=== PATIENT | male | born 1980 | race Two or more races ===

== ENCOUNTER → 2020-07-06 09:26 | Outpatient (BNVA) | payer MEDICARE, MEDICAID, SELFPAY | PROVIDERS: PCP Internal Medicine; Referring Provider Internal Medicine; Visit Provider Surgery | DX: R10.32 Left lower quadrant pain (principal) | CPT/HCPCS: 99203 ==

== ENCOUNTER 2020-07-19 07:54 | Outpatient (REF) | payer MEDICARE, MEDICAID, SELFPAY ==
--- NOTE | 2020-07-19 07:58 | CT_ITS ---
EXAMINATION: CT PELVIS WITHOUT CONTRAST CLINICAL INFORMATION: Left lower quadrant pain, left groin and testicular pain. COMPARISON: None. TECHNIQUE: Helical scanning was performed with submillimeter collimation through the pelvis. Sagittal and coronal multiplanar 2-D reconstructions were obtained. This CT examination was performed using dose optimization techniques as appropriate, variously including the following: *Automated exposure control *Adjustment of mA and/or kV according to patient size (this includes techniques or standardized protocols for targeted exams where dose is matched to indication/reason for exam; i.e. extremities or head) *Use of iterative reconstruction technique DLP: 680 mGy-cm. FINDINGS: PELVIS: There is scattered stool and gas seen throughout the colon without any significant distention. The small bowel loops are normal caliber. The prostate is normal size with punctate central gland calcification. Incidental finding of left inguinal hernia containing fat is noted. No abnormal pelvic or inguinal lymph nodes seen. OSSEOUS STRUCTURES: There is no visible lytic or sclerotic process. There is a small bone island left femoral head and proximal left femur. IMPRESSION: Small left inguinal hernia containing fat.
== END 2020-07-19 07:55 | disposition home or self-care (01) ==
LOC: HO.CT 07:54
PROVIDERS: PCP Internal Medicine; Visit Provider Surgery
DX: R10.32 Left lower quadrant pain (principal)
CPT/HCPCS: 72192

== ENCOUNTER → 2020-07-27 08:24 | Outpatient (BNVA) | payer MEDICARE, MEDICAID, SELFPAY | PROVIDERS: PCP Internal Medicine; Visit Provider Surgery | DX: K40.90 Unilateral inguinal hernia, without obstruction or gangrene, not specified as recurrent (principal); R10.32 Left lower quadrant pain | CPT/HCPCS: 99213 ==

== ENCOUNTER 2020-08-04 07:16 | Day surgery (SDC) | payer MEDICARE, MEDICAID, SELFPAY ==
--- NOTE | 2020-08-02 15:36 | P.CONAN_ITS ---
Documented by User: Argenis Damon 08/02/20 15:37 HPI - Anesthesia Eval Consult details Narrative: 40yo M for Open Hernia Repair Inguinal PMFSH Past Medical History Medical History Asthma Depression with anxiety Fibromyalgia GERD (gastroesophageal reflux disease) Hyperlipidemia Social History Social History Alcohol intake: current Alcohol intake frequency: holidays/special occasions only Smoking Status: Never smoker Second Hand Smoke Exposure: No Use of substances other than those prescribed or required for medical reasons: No Advance Directives: Yes Advance Directives Information Provided: No Advance Directives on File: Yes Advance Directives Date on File: 07/19/20 Meds Allergies Allergy/AdvReac Type Severity Reaction Status Date / Time seafood Allergy Anaphylaxis Verified 07/27/20 08:50 Home Medications Medication Instructions Recorded Confirmed Type atorvastatin 80 mg tablet 80 mg PO DAILY 07/06/20 07/06/20 History baclofen 10 mg tablet 10 mg PO tab 07/06/20 07/06/20 History carbidopa 25 mg-levodopa 100 mg 1 tab PO DAILY tab 07/06/20 07/06/20 History tablet citalopram 20 mg tablet 20 mg PO DAILY 07/06/20 07/06/20 History clonazepam 0.5 mg tablet 0.5 mg PO DAILY PRN 07/06/20 07/06/20 History clonazepam 1 mg tablet 1 mg PO BEDTIME PRN 07/06/20 07/06/20 History dicyclomine 10 mg capsule 10 mg PO cap 07/06/20 07/06/20 History docusate sodium 100 mg capsule 100 mg PO BID PRN 07/06/20 07/06/20 History gabapentin 800 mg tablet 800 mg PO BID 07/06/20 07/06/20 History pantoprazole 40 mg tablet,delayed mg PO 07/06/20 07/06/20 History release sennosides 8.6 mg tablet [id number]? mg PO BEDTIME PRN 07/06/20 07/06/20 History tramadol 50 mg tablet 50 mg PO Q6H PRN 07/06/20 07/06/20 History trazodone 50 mg tablet mg PO 07/06/20 07/06/20 History Exam Exam Date and Time: August 02, 2020 1536 Pertinent Lab Results Pertinent Lab Results: Laboratory Tests 06/22/20 08:17 Sodium 143 Potassium 4.2 Chloride 107 BUN 10 Creatinine 0.98 Assessment and Plan Assessment Anesthesia Assessment: Chart Reviewed Documented by User: Opal Carrion 08/04/20 09:12 [facility] Past Medical History Medical History Asthma Depression with anxiety Fibromyalgia GERD (gastroesophageal reflux disease) Hyperlipidemia Social History Social History Alcohol intake: current Alcohol intake frequency: holidays/special occasions only Smoking Status: Never smoker Second Hand Smoke Exposure: No Use of substances other than those prescribed or required for medical reasons: No Advance Directives: Yes Advance Directives Information Provided: No Advance Directives on File: Yes Advance Directives Date on File: 07/19/20 Meds Allergies Allergy/AdvReac Type Severity Reaction Status Date / Time seafood Allergy Anaphylaxis Verified 07/27/20 08:50 Home Medications Medication Instructions Recorded Confirmed Type atorvastatin 80 mg tablet 80 mg PO DAILY 07/06/20 07/06/20 History baclofen 10 mg tablet 10 mg PO tab 07/06/20 07/06/20 History carbidopa 25 mg-levodopa 100 mg 1 tab PO DAILY tab 07/06/20 07/06/20 History tablet citalopram 20 mg tablet 20 mg PO DAILY 07/06/20 07/06/20 History clonazepam 0.5 mg tablet 0.5 mg PO DAILY PRN 07/06/20 07/06/20 History clonazepam 1 mg tablet 1 mg PO BEDTIME PRN 07/06/20 07/06/20 History dicyclomine 10 mg capsule 10 mg PO cap 07/06/20 07/06/20 History docusate sodium 100 mg capsule 100 mg PO BID PRN 07/06/20 07/06/20 History gabapentin 800 mg tablet 800 mg PO BID 07/06/20 07/06/20 History pantoprazole 40 mg tablet,delayed mg PO 07/06/20 07/06/20 History release sennosides 8.6 mg tablet [id number]? mg PO BEDTIME PRN 07/06/20 07/06/20 History tramadol 50 mg tablet 50 mg PO Q6H PRN 07/06/20 07/06/20 History trazodone 50 mg tablet mg PO 07/06/20 07/06/20 History Exam Airway Mallampati Class: II TM Dist: >3cm Neck ROM: Full Heart: RRR Lungs: CTA Bl Assessment and Plan Assessment Anesthesia Assessment: Anesthesia Plan Discussed and Chart Reviewed Final Anesthetic Review NPO: Yes ASA Class: II Final Preanesthetic Review: Meds/Allgs Chart Reviewed and Consent Obtained/Reviewed Patient Risk: Intermediate Procedure Risk: Intermediate Anesthetic Plan Anesthetic Plan: GA Disposition: Standard PACU
[2020-08-03 11:51] VITALS: BMI 34.3
[2020-08-04] VITALS (7 sets, daily range): BP systolic 115–137; BP diastolic 74–87; PULSE 65–84; RESP 16–18; TEMP 36–36.4; O2SAT 96–99
[2020-08-04] MEDS: ceFAZolin Sodium/Dextrose,Iso 2 GM/50 ML PIGGYBACK IV (08:04)
[2020-08-04] MEDS: Lactated Ringers 1,000 ML 100 ML IVCONT (08:04)
--- NOTE | 2020-08-04 09:04 | MHC.SHP ---
Pre-Procedural Eval Section A The patient is an INPATIENT: No Changes since office visit: Yes Patient answered all questions; No Cold of Flu in the past 2 weeks, No New Medical Problems and No Changes in Medication The History & Physical has been completed within 30 days and I have reviewed it.: Yes Section B Chief Complaint: Left Inguinal Hernia, Left Inguinal Pain Allergies: Allergies Allergy/AdvReac Type Severity Reaction Status Date / Time seafood Allergy Anaphylaxis Verified 07/27/20 08:50 Plan Patient has been examined and remains a candidate for the planned procedure
--- NOTE | 2020-08-04 10:45 | W.PM.OPN ---
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 Review of the images suggested that findings might be related to and asymmetrically yeah enlarged and fatty lipoma Procedure: Left inguinal exploration and excision of lipoma of the cord Anesthesia: General laryngeal mask Chemical Dependency Professional: None Estimated blood loss: Less than 10 cc Specimen: Lipoma of the cord Implants: None Urine output: None Immediate complications: None Findings: A left inguinal hernia was not identified, but there was a large lipoma of the cord that extended down to the superior aspect of the testis. Indications: This is a 40-year-old gentleman with recent complaints of left testicular pain and fullness in the left scrotum. Examination was not convincing for the presence of left inguinal hernia, but the presence of a fat containing inguinal hernia was reported. Review of the images suggest the possibility that findings represented a large lipoma of the cord. Procedure in detail: With the patient in the supine position following induction of adequate general anesthesia, the lower abdominal wall and inguinal areas were prepped with ChloraPrep and were draped sterilely. Time-out procedure was performed. The incision line was marked and skin and subcutaneous tissues were infiltrated with local anesthetic. Further anesthetic infiltration was carried out during the procedure as the incision was deepened. An approximately 7 cm incision was made paralleling the inguinal crease on the left beginning over the area of the external ring and extending superiorly and laterally. The incision was deepened to the level of the external oblique fascia using the letrozole surgical pencil and bleeding was controlled using the electrosurgical pencil. A aubrey Hatfielda retractor was then positioned. External oblique fascia was split in line with its fibers through the external ring. Did soft tissues were dissected free from the deep surface of the incised external oblique fascia and the rahcael Hatfielda retractor was repositioned and to wet retract the cut edges of the external oblique fascia. The cord structures were then encircled at the level of the pubic tubercle and a Jumping Branch drain was placed around them. Dissection was initiated on the anteromedial aspect of the cord. The cord structures were identified and avoided. There was no evidence of an indirect hernia. No direct hernia defect was present. Dissection was continued along the lateral aspect of the cord. A large lipoma of the cord was identified day extending down into the he a left hemiscrotum to the superior aspect of the testis. This was gently retracted and dissected free using a combination of Metzenbaum dissection and electro with surgical dissection. The lipoma was freed up to the level of the internal ring. It was then that have crossclamped using get 3 hemostats and was excised. Cut edges were ligated with 2 0 Polysorb ties. After ensuring hemostasis, cut edges were allowed to retract through the internal ring. Attention was then turned back to the yet cord and careful inspection was again carried out. There is no evidence of an indirect hernia. The operative site was copiously irrigated with saline solution. The floor of the canal was inspected. It was intact. There was no evidence of direct hernia. The wound was then closed using a running suture of 2 0 Polysorb for the external oblique. Subcutaneous tissues were irrigated with saline solution and inspected for bleeding. None was seen. Subcutaneous tissues were closed with interrupted sutures of 3 0 Polysorb and skin was closed with a running subcuticular suture of 4 0 Polysorb. Steri-Strips and dry sterile dressings were applied. Sponge and instrument counts were correct. He tolerated the procedure well and was transported to the recovery room in stable condition. There were no immediate complications.
[2020-08-04] MEDS: Acetaminophen 325 MG TABLET 650 MG PO (10:51)
[2020-08-04] MEDS: oxyCODONE HCl Immed Release 5 MG TABLET PO (10:52)
== END 2020-08-04 12:25 | disposition home or self-care (01) ==
PROVIDERS: PCP Internal Medicine; Visit Provider Surgery
DX: D17.6 Benign lipomatous neoplasm of spermatic cord (principal); K21.9 Gastro-esophageal reflux disease without esophagitis; J45.909 Unspecified asthma, uncomplicated; F32.9 Major depressive disorder, single episode, unspecified; Z79.899 Other long term (current) drug therapy
CPT/HCPCS: 55520; 88304; J0690; J1100; J1885; J2250; J2405; J3010

== ENCOUNTER → 2020-08-12 10:58 | Outpatient (BNVA) | payer MEDICARE, MEDICAID, SELFPAY | PROVIDERS: PCP Internal Medicine; Visit Provider Surgery | DX: Z48.815 Encounter for surgical aftercare following surgery on the digestive system (principal) | CPT/HCPCS: 99212 ==

== ENCOUNTER → 2020-09-01 15:23 | Outpatient (BNVA) | payer MEDICARE, MEDICAID, SELFPAY | PROVIDERS: PCP Internal Medicine; Visit Provider Surgery | DX: N50.812 Left testicular pain (principal); D17.6 Benign lipomatous neoplasm of spermatic cord | CPT/HCPCS: 99212 ==

== ENCOUNTER → 2020-09-15 11:00 | Outpatient (BNVA) | payer MEDICARE, MEDICAID, SELFPAY | PROVIDERS: PCP Internal Medicine; Referring Provider Internal Medicine; Visit Provider Urology | DX: N50.89 Other specified disorders of the male genital organs (principal) | CPT/HCPCS: 99202 ==

== ENCOUNTER 2020-09-20 09:49 | Day surgery (SDC) | payer MEDICARE, MEDICAID, SELFPAY ==
--- NOTE | 2020-09-17 12:59 | P.CONAN_ITS ---
Documented by User: Argenis Damon 09/17/20 13:00 HPI - Anesthesia Eval Consult details Narrative: 40yo M for Left epididymal Excision Cyst PMFSH Past Medical History Medical History Annual physical exam Asthma Depression with anxiety Fibromyalgia GERD (gastroesophageal reflux disease) Hyperlipidemia Surgical History Surgical History History of left inguinal hernia repair Social History Social History Alcohol intake: current Alcohol intake frequency: holidays/special occasions only Smoking Status: Never smoker Second Hand Smoke Exposure: No Use of substances other than those prescribed or required for medical reasons: No Advance Directives: Yes Advance Directives on File: Yes Advance Directives Date on File: 07/19/20 Recently lost weight without trying: No Meds Allergies Allergy/AdvReac Type Severity Reaction Status Date / Time seafood Allergy Anaphylaxis Verified 09/01/20 15:38 Home Medications Medication Instructions Recorded Confirmed Type atorvastatin 80 mg tablet 80 mg PO DAILY 07/06/20 09/01/20 History baclofen 10 mg tablet 10 mg PO tab 07/06/20 09/01/20 History carbidopa 25 mg-levodopa 100 mg 1 tab PO DAILY tab 07/06/20 09/01/20 History tablet citalopram 20 mg tablet 20 mg PO DAILY 07/06/20 09/01/20 History clonazepam 0.5 mg tablet 0.5 mg PO DAILY PRN 07/06/20 09/01/20 History clonazepam 1 mg tablet 1 mg PO BEDTIME PRN 07/06/20 09/01/20 History dicyclomine 10 mg capsule 10 mg PO cap 07/06/20 09/01/20 History gabapentin 800 mg tablet 800 mg PO BID 07/06/20 09/01/20 History sennosides 8.6 mg tablet [id number]? mg PO BEDTIME PRN 07/06/20 09/01/20 History tramadol 50 mg tablet 50 mg PO Q6H PRN 07/06/20 09/01/20 History trazodone 50 mg tablet mg PO 07/06/20 09/01/20 History aripiprazole 5 mg tablet 5 mg PO DAILY 09/17/20 History citalopram 10 mg tablet 10 mg PO DAILY 09/17/20 History Exam Exam Date and Time: September 17, 2020 1259 Pertinent Lab Results Pertinent Lab Results: Laboratory Tests 04/07/19 06/22/20 08:16 08:17 WBC 4.4 L Hgb 14.1 Hct 43.9 Plt Count 235 Sodium 143 Potassium 4.2 Chloride 107 BUN 10 Creatinine 0.98 Assessment and Plan Assessment Anesthesia Assessment: Chart Reviewed Documented by User: Lali Antonio 09/20/20 11:06 [facility] Past Medical History Medical History Annual physical exam Asthma Depression with anxiety Fibromyalgia GERD (gastroesophageal reflux disease) Hyperlipidemia Surgical History Surgical History History of left inguinal hernia repair Social History Social History Alcohol intake: current Alcohol intake frequency: holidays/special occasions only Smoking Status: Never smoker Second Hand Smoke Exposure: No Use of substances other than those prescribed or required for medical reasons: No Advance Directives: Yes Advance Directives on File: Yes Advance Directives Date on File: 07/19/20 Recently lost weight without trying: No Meds Allergies Allergy/AdvReac Type Severity Reaction Status Date / Time seafood Allergy Anaphylaxis Verified 09/01/20 15:38 Home Medications Medication Instructions Recorded Confirmed Type atorvastatin 80 mg tablet 80 mg PO DAILY 07/06/20 09/01/20 History baclofen 10 mg tablet 10 mg PO tab 07/06/20 09/01/20 History carbidopa 25 mg-levodopa 100 mg 1 tab PO DAILY tab 07/06/20 09/01/20 History tablet citalopram 20 mg tablet 20 mg PO DAILY 07/06/20 09/01/20 History clonazepam 0.5 mg tablet 0.5 mg PO DAILY PRN 07/06/20 09/01/20 History clonazepam 1 mg tablet 1 mg PO BEDTIME PRN 07/06/20 09/01/20 History dicyclomine 10 mg capsule 10 mg PO cap 07/06/20 09/01/20 History gabapentin 800 mg tablet 800 mg PO BID 07/06/20 09/01/20 History sennosides 8.6 mg tablet [id number]? mg PO BEDTIME PRN 07/06/20 09/01/20 History tramadol 50 mg tablet 50 mg PO Q6H PRN 07/06/20 09/01/20 History trazodone 50 mg tablet mg PO 07/06/20 09/01/20 History aripiprazole 5 mg tablet 5 mg PO DAILY 09/17/20 History citalopram 10 mg tablet 10 mg PO DAILY 09/17/20 History Exam Airway Mallampati Class: II TM Dist: >3cm Neck ROM: Full
[2020-09-20] VITALS (8 sets, daily range): BP systolic 118–130; BP diastolic 72–84; PULSE 57–77; RESP 16; TEMP 36.1–36.5; O2SAT 95–99; BMI 34.0
[2020-09-20] MEDS: Lactated Ringers 1,000 ML 100 ML IVCONT (11:00)
--- NOTE | 2020-09-20 12:27 | MHC.SHP ---
Pre-Procedural Eval Section A The patient is an INPATIENT: No Changes since office visit: No Cold of Flu in the past 2 weeks, No New Medical Problems, No Changes in Medication and No Patient answered all questions The History & Physical has been completed within 30 days and I have reviewed it.: Yes Section B Chief Complaint: disorder of the male genital organs Allergies: Allergies Allergy/AdvReac Type Severity Reaction Status Date / Time seafood Allergy Anaphylaxis Verified 09/01/20 15:38 Plan Diagnosis/Plan: Unchanged I have reviewed the history and physical and performed a pertinent physical examination on my patient. No changes have occurred unless specified. Left excision of scrotal spermatocele
[2020-09-20] MEDS: ceFAZolin Sodium/Dextrose,Iso 2 GM/50 ML PIGGYBACK IV (12:31)
--- NOTE | 2020-09-20 14:05 | PM.OP ---
Brief Operative Note Date of Service: 09/20/20 Pre-op diagnosis: Left epididymal cyst Post-op diagnosis: same Procedure: Removal of left epididymal tail with cyst Surgeon: Harlan Gregory MD Anesthesia: GLMA Estimated blood loss (mL): 0 Pathology: other (Epididymal tail) Condition: stable Disposition: same day
--- NOTE | 2020-09-20 14:09 | W.PM.OPN ---
Operative Note Operative Note Date of Service: 09/20/20 Narrative: PreOperative Diagnosis: Left epididymal tail cyst Post Operative Diagnosis: Inflamed left epididymal tail Procedure: Removal of left epididymal tail Surgeon: Dr Harlan Gregory Anesthesia: General Indications for procedure: This is a 40-year-old male. Persistent pain on left testicle. Pain at epididymal tail. Prior urologist had treated conservatively. Suggest removal of epididymal tail. Did respond to local anesthetic incision in office. Is aware of the risks and benefits particularly loss of testicle. Procedure: After informed consent was verified the patient was brought to the operating room and placed in a supine position. Anesthesia was administered per protocol. The patient was prepped and draped in sterile fashion. Safety pause time-out was performed. Antibiotics have been given. The distal left epididymal tail was injury rated on palpation prior to incision. Local anesthetic was placed subcutaneous in the midline of the scrotum. An incision was made down to the tunica. The tunica was opened in the left testicle removed. The inflamed distal left epididymal tail was easily palpated and could be seen to be visibly inflamed. Careful dissection releasing the tail was performed. Once the tail had been released and was approximately [address] the testicle with normal tissue this area was clamped and the distal aspect removed. Bleeding was then controlled along the edge of the testicle. Careful dissection had been made along the edge in order to avoid feeding vessels. The stump of the epididymis was oversewn with a 3-0 chromic suture. No bleeding was seen. The testicle was placed back within the tunic and back within the scrotal sac. The tunic was then closed with a running 3-0 chromic suture. Subcutaneous tissue was closed with interrupted 3-0 chromic. The skin was then closed with interrupted 4-0 chromic sutures. The patient tolerated procedure well was extubated in operating room and transferred in stable condition to the recovery area. Pathology: Distal tile of epididymis Drains: None
[2020-09-20] MEDS: oxyCODONE HCl Immed Release 5 MG TABLET PO (14:35)
[2020-09-20] MEDS: fentaNYL citrate/PF 100 MCG/2 ML VIAL 50 MCG IVPUSH (14:41)
--- NOTE | 2020-09-20 15:21 | HO.POSTANES ---
Post Anesthesia Evaluation Post Anesthesia Evaluation Vital Signs: Vital Signs Temp Pulse Resp BP Pulse Ox 09/20/20 15:00 77 16 95 09/20/20 14:50 62 16 121/78 95 09/20/20 14:45 58 16 126/84 97 09/20/20 14:30 58 16 130/82 96 09/20/20 14:25 67 16 95 09/20/20 14:21 59 16 120/77 96 09/20/20 14:16 97.7 F 57 16 121/74 99 09/20/20 10:41 97.0 F 62 16 118/72 97 Anesthesia: General Mental Status: Awake Pain Control: Satisfactory Nausea/Vomiting: None Hydration: Adequate Anesthesia-Related Issues: No Anes. Related Issues
== END 2020-09-20 15:51 | disposition home or self-care (01) ==
PROVIDERS: PCP Internal Medicine; Visit Provider Urology
PROC: (CPT 54830; principal; 2020-09-20 12:00)
DX: N50.3 Cyst of epididymis (principal); N45.1 Epididymitis; J45.909 Unspecified asthma, uncomplicated; F32.9 Major depressive disorder, single episode, unspecified; Z79.899 Other long term (current) drug therapy
CPT/HCPCS: 54830; 88304; 88341; 88342; 88360; J0690; J1100; J2250; J2405; J3010

== ENCOUNTER → 2020-10-07 09:50 | Outpatient (BNVA) | payer MEDICARE, MEDICAID, SELFPAY | PROVIDERS: PCP Internal Medicine; Visit Provider Surgery | DX: Z76.89 Persons encountering health services in other specified circumstances (principal) | CPT/HCPCS: 99212 ==

== ENCOUNTER 2020-10-07 10:55 | Outpatient (REF) | payer MEDICARE, MEDICAID, SELFPAY | END 2020-10-07 10:56 | disposition home or self-care (01) | LOC: HO.LAB 10:55 | PROVIDERS: PCP Internal Medicine; Visit Provider Internal Medicine | DX: Z20.822 Contact with and (suspected) exposure to COVID-19 (principal) | CPT/HCPCS: 36415; 99212; C9803; U0003 ==

== ENCOUNTER 2020-10-15 08:23 | Outpatient (REF) | payer MEDICARE, MEDICAID, SELFPAY | END 2020-10-15 08:24 | disposition home or self-care (01) | LOC: HO.LAB 08:23 | PROVIDERS: Visit Provider Internal Medicine | DX: Z20.822 Contact with and (suspected) exposure to COVID-19 (principal) | CPT/HCPCS: 36415; C9803; U0003 ==

== ENCOUNTER → 2020-10-20 10:46 | Outpatient (BNVA) | payer MEDICARE, MEDICAID, SELFPAY | PROVIDERS: PCP Internal Medicine; Visit Provider Urology | DX: N50.89 Other specified disorders of the male genital organs (principal) | CPT/HCPCS: 99212 ==

== ENCOUNTER 2020-11-09 09:36 | Outpatient (REF) | payer MEDICARE, MEDICAID, SELFPAY | END 2020-11-09 09:37 | disposition home or self-care (01) | LOC: HO.LAB 09:36 | PROVIDERS: Visit Provider Internal Medicine | DX: Z20.822 Contact with and (suspected) exposure to COVID-19 (principal) | CPT/HCPCS: 36415; C9803; U0003; U0005 ==

== ENCOUNTER → 2021-02-01 10:10 | Outpatient (BNVA) | payer MEDICARE, MEDICAID, SELFPAY | PROVIDERS: PCP Internal Medicine; Visit Provider Urology | DX: N52.9 Male erectile dysfunction, unspecified (principal); F41.8 Other specified anxiety disorders | CPT/HCPCS: 99212 ==

== ENCOUNTER → 2021-04-07 08:43 | Outpatient (BNVA) | payer MEDICARE, MEDICAID, SELFPAY | PROVIDERS: Visit Provider Nurse Practitioner | DX: Z13.89 Encounter for screening for other disorder (principal) | CPT/HCPCS: Q3014 ==

== ENCOUNTER → 2021-04-08 14:28 | Outpatient (BNVA) | payer MEDICARE, MEDICAID, SELFPAY | PROVIDERS: PCP Internal Medicine; Visit Provider Student in an Organized Health Care Education/Training Program | DX: M47.816 Spondylosis without myelopathy or radiculopathy, lumbar region (principal) | CPT/HCPCS: 99212 ==

== ENCOUNTER 2021-05-16 07:08 | Outpatient (REF) | payer MEDICARE, MEDICAID, SELFPAY ==
[2021-05-16 09:01] LABS: MANUAL DIFF FLAG NO
[2021-05-16 09:12] LABS: Basophils Percent Auto 0.6 % (0-2); Eosinophils Absolute Auto 0.1 X10*3/uL (0.0-0.4); Eosinophils Percent Auto 2.8 % (0-4); Hematocrit 43.3 % (42-52); Hemoglobin 14.4 g/dl (14.0-18.0); Imm Gran Abs Auto 0.01 X10*3/uL (0.00-0.03); Imm Gran Pct Auto 0.2 % (0.0-0.4); Lymphocytes Absolute Auto 1.7 X10*3/uL (1.2-4.9); Mean Corpuscular HGB Conc 33.3 g/dl (31.0-36.0); Mean Corpuscular Hemoglobin 29.7 pg (27.0-33.0); Mean Corpuscular Volume 89.3 fL (80-98); Mean Platelet Volume 9.9 fL (9.4-12.4); Monocytes Absolute Auto 0.5 X10*3/uL (0.1-1.2); Monocytes Percent Auto 10.3 % (2-11); Neutrophils Absolute Auto 2.3 X10*3/uL (2.0-8.3); Neutrophils Percent Auto 50.1 % (45-73); Platelet Count 259 X10*3/uL (160-400); Red Blood Count 4.85 X10*6/uL (4.60-5.80); Red Cell Distribution Width 13.3 % (11.0-16.0); White Blood Count 4.7 X10*3/uL (4.8-10.8)
[2021-05-16 09:26] LABS: Alanine Aminotransferase 29 U/L (0-40); Albumin Level 4.2 g/dL (3.5-5.0); Alkaline Phosphatase 77 U/L (39-117); Anion Gap 15 (12-20); Aspartate Amino Transferase 19 U/L (5-37); Bilirubin Total 0.4 mg/dL (0.0-1.0); Blood Urea Nitrogen 10 mg/dL (9-16); Calcium 8.9 mg/dL (8.4-10.2); Carbon Dioxide 26 mmol/L (22-29); Chloride 106 mmol/L (96-108); Cholesterol 182 mg/dL; Estimated Glomerular Filt Rate > 60; Glucose Fasting 104 mg/dL (60-99); HDL Cholesterol 42 mg/dL; LDL Cholesterol Calculated 92 mg/dl; Potassium 4.1 mmol/L (3.3-5.1); Sodium 143 mmol/L (135-145); Total Protein 6.6 g/dL (6.5-8.0); Triglycerides 242 mg/dL
[2021-05-16 09:51] LABS: TSH reflex Free T4 2.67 uIU/mL (0.32-4.0)
== END 2021-05-16 07:09 | disposition home or self-care (01) ==
LOC: HO.LAB 07:08
PROVIDERS: PCP Internal Medicine; Referring Provider Internal Medicine; Visit Provider Nurse Practitioner Family
DX: Z00.00 Encounter for general adult medical examination without abnormal findings (principal)
CPT/HCPCS: 36415; 80053; 80061; 84443; 85025

== ENCOUNTER → 2021-10-10 12:33 | Outpatient (BNVA) | payer MEDICARE, MEDICAID, SELFPAY | PROVIDERS: PCP Internal Medicine; Referring Provider Internal Medicine; Visit Provider Nurse Practitioner | DX: K21.9 Gastro-esophageal reflux disease without esophagitis (principal); K59.00 Constipation, unspecified | CPT/HCPCS: 99212 ==

== ENCOUNTER 2021-10-24 07:37 | Outpatient (REF) | payer MEDICARE, MEDICAID, SELFPAY ==
[2021-10-24 08:02] LABS: MANUAL DIFF FLAG NO
[2021-10-24 08:32] LABS: Basophils Percent Auto 0.6 % (0-2); Eosinophils Absolute Auto 0.1 X10*3/uL (0.0-0.4); Eosinophils Percent Auto 1.9 % (0-4); Hematocrit 44.5 % (42.0-52.0); Hemoglobin 14.4 g/dl (14.0-18.0); Imm Gran Abs Auto 0.01 X10*3/uL (0.00-0.03); Imm Gran Pct Auto 0.2 % (0.0-0.4); Lymphocytes Absolute Auto 1.5 X10*3/uL (1.2-4.9); Lymphocytes Percent Auto 29.4 % (20-40); Mean Corpuscular HGB Conc 32.4 g/dl (31.0-36.0); Mean Corpuscular Hemoglobin 29.9 pg (27.0-33.0); Mean Corpuscular Volume 92.3 fL (80.0-98.0); Mean Platelet Volume 8.9 fL (9.4-12.4); Monocytes Absolute Auto 0.5 X10*3/uL (0.1-1.2); Monocytes Percent Auto 9.5 % (2-11); Neutrophils Absolute Auto 3.1 x10*3/uL (2.0-8.3); Neutrophils Percent Auto 58.4 % (45-73); Platelet Count 252 X10*3/uL (160-400); Red Blood Count 4.82 X10*6/uL (4.60-5.80); Red Cell Distribution Width 13.6 % (11.0-16.0); White Blood Count 5.2 X10*3/uL (4.8-10.8)
[2021-10-24 08:52] LABS: Alanine Aminotransferase 34 U/L (0-40); Albumin Level 4.1 g/dL (3.5-5.0); Alkaline Phosphatase 77 U/L (39-117); Anion Gap 13 (12-20); Aspartate Amino Transferase 22 U/L (5-37); Bilirubin Total 0.3 mg/dL (0.0-1.0); Blood Urea Nitrogen 10 mg/dL (9-16); Calcium 9.1 mg/dL (8.4-10.2); Carbon Dioxide 28 mmol/L (22-29); Chloride 106 mmol/L (96-108); Cholesterol 187 mg/dL; Estimated Glomerular Filt Rate > 60; Glucose Fasting 106 mg/dL (60-99); HDL Cholesterol 43 mg/dL; LDL Cholesterol Calculated 99 mg/dl; Potassium 5.1 mmol/L (3.3-5.1); Sodium 142 mmol/L (135-145); Total Protein 6.8 g/dL (6.5-8.0); Triglycerides 226 mg/dL
[2021-10-29 13:15] LABS: Vitamin D 25-OH, D2 <4 ng/mL; Vitamin D 25-OH, D3 27 ng/mL; Vitamin D 25-OH, Total 27 ng/mL (30-100)
== END 2021-10-24 07:38 | disposition home or self-care (01) ==
LOC: HO.LAB 07:37
PROVIDERS: PCP Internal Medicine; Visit Provider Internal Medicine
DX: F33.0 Major depressive disorder, recurrent, mild (principal); E78.2 Mixed hyperlipidemia; E55.9 Vitamin D deficiency, unspecified; E78.5 Hyperlipidemia, unspecified
CPT/HCPCS: 36415; 80053; 80061; 82306; 85025

== ENCOUNTER → 2021-11-14 08:29 | Outpatient (BNVA) | payer MEDICARE, MEDICAID, SELFPAY | PROVIDERS: PCP Internal Medicine; Visit Provider Nurse Practitioner Family | DX: M47.816 Spondylosis without myelopathy or radiculopathy, lumbar region (principal); M25.561 Pain in right knee; M25.562 Pain in left knee | CPT/HCPCS: 99212 ==

== ENCOUNTER 2021-11-23 07:57 | Outpatient (REF) | payer MEDICARE, MEDICAID, SELFPAY ==
--- NOTE | ~2021-11-23 | XR_ITS ---
EXAMINATION: XR LUMBAR SPINE. BILATERAL KNEE CLINICAL INFORMATION: Low back pain. COMPARISON: MRI lumbar spine 12/05/2019. TECHNIQUE: Lumbar spine 3 views. Bilateral knee 3 views each. FINDINGS: Lumbar spine: There is normal lumbar lordosis. The vertebral heights and alignment are normal. The disc heights are preserved. There is no visible acute fracture, dislocation or lytic process. The SI joints are symmetrical and normal. The paravertebral soft tissues are normal. Left knee: There is mild loss of medial and lateral compartment joint space. The patellofemoral compartment joint space is preserved. No visible acute fracture, dislocation or subluxation seen. Right knee: There is mild loss of medial and lateral compartment joint space without bony erosive changes. No loose bodies or joint effusion seen. XR/XR knee RT 3V IMPRESSION: Unremarkable lumbar spine exam. Mild degenerative changes medial and lateral compartment bilateral knees. No acute fracture or loose body seen.
--- NOTE | ~2021-11-23 | XR_ITS ---
EXAMINATION: XR LUMBAR SPINE. BILATERAL KNEE CLINICAL INFORMATION: Low back pain. COMPARISON: MRI lumbar spine 12/05/2019. TECHNIQUE: Lumbar spine 3 views. Bilateral knee 3 views each. FINDINGS: Lumbar spine: There is normal lumbar lordosis. The vertebral heights and alignment are normal. The disc heights are preserved. There is no visible acute fracture, dislocation or lytic process. The SI joints are symmetrical and normal. The paravertebral soft tissues are normal. Left knee: There is mild loss of medial and lateral compartment joint space. The patellofemoral compartment joint space is preserved. No visible acute fracture, dislocation or subluxation seen. Right knee: There is mild loss of medial and lateral compartment joint space without bony erosive changes. No loose bodies or joint effusion seen. XR/XR knee LT 3V IMPRESSION: Unremarkable lumbar spine exam. Mild degenerative changes medial and lateral compartment bilateral knees. No acute fracture or loose body seen.
--- NOTE | ~2021-11-23 | XR_ITS ---
EXAMINATION: XR LUMBAR SPINE. BILATERAL KNEE CLINICAL INFORMATION: Low back pain. COMPARISON: MRI lumbar spine 12/05/2019. TECHNIQUE: Lumbar spine 3 views. Bilateral knee 3 views each. FINDINGS: Lumbar spine: There is normal lumbar lordosis. The vertebral heights and alignment are normal. The disc heights are preserved. There is no visible acute fracture, dislocation or lytic process. The SI joints are symmetrical and normal. The paravertebral soft tissues are normal. Left knee: There is mild loss of medial and lateral compartment joint space. The patellofemoral compartment joint space is preserved. No visible acute fracture, dislocation or subluxation seen. Right knee: There is mild loss of medial and lateral compartment joint space without bony erosive changes. No loose bodies or joint effusion seen. XR/XR lumbar spine 2-3V IMPRESSION: Unremarkable lumbar spine exam. Mild degenerative changes medial and lateral compartment bilateral knees. No acute fracture or loose body seen.
== END 2021-11-23 07:58 | disposition home or self-care (01) ==
LOC: HO.XRAY 07:57
PROVIDERS: PCP Internal Medicine; Visit Provider Nurse Practitioner Family
DX: M54.50 Low back pain, unspecified (principal); M25.561 Pain in right knee; M25.562 Pain in left knee
CPT/HCPCS: 72100; 73562

== ENCOUNTER → 2021-12-29 09:39 | Outpatient (BNVA) | payer MEDICARE, MEDICAID, SELFPAY | PROVIDERS: PCP Internal Medicine; Visit Provider Nurse Practitioner Family | DX: M62.830 Muscle spasm of back (principal); M47.816 Spondylosis without myelopathy or radiculopathy, lumbar region; M79.7 Fibromyalgia; M54.17 Radiculopathy, lumbosacral region; M53.3 Sacrococcygeal disorders, not elsewhere classified | CPT/HCPCS: 99212 ==

== ENCOUNTER 2022-02-24 06:12 | Outpatient (REF) | payer MEDICARE, MEDICAID, SELFPAY ==
--- NOTE | ~2022-02-24 | FL_ITS ---
EXAMINATION: XR FLUOROSCOPY WITH IMAGES CLINICAL INFORMATION: M54.16 - Radiculopathy, lumbar region COMPARISON: Radiographs lumbar spine 11/23/2021 TECHNIQUE: Fluoroscopy performed by Dr. Eduardo Maradiaga. Fluoroscopy time: 0.2 minutes DAP: 1.39 Gycm2 Images: 2 FINDINGS: There is a midline posterior interlaminar spinal needle at the level L5-S1. FL/FL guidance in treatment room IMPRESSION: Fluoroscopy for pain management procedure.
== END 2022-02-24 06:13 | disposition home or self-care (01) ==
LOC: HO.RADIR 06:12
PROVIDERS: Visit Provider Internal Medicine
DX: M54.17 Radiculopathy, lumbosacral region (principal)
CPT/HCPCS: 62323; J1040; J1100

== ENCOUNTER 2022-03-21 09:12 | Outpatient (REF) | payer MEDICARE, MEDICAID, SELFPAY ==
--- NOTE | ~2022-03-21 | US_ITS ---
EXAMINATION: US ABDOMEN COMPLETE CLINICAL INFORMATION: Right upper quadrant pain. COMPARISON: None TECHNIQUE: Real-time imaging of the abdominal viscera. FINDINGS: PANCREAS: Normal. ABDOMINAL AORTA: The proximal, mid, and distal segments are normal in caliber. INFERIOR VENA CAVA: Visualized portions are normal. LIVER: The liver is normal in size. The liver contour is normal. Heterogeneous echotexture suggesting an element of hepatic steatosis. No focal hepatic lesion. There is no intrahepatic biliary duct dilatation seen. GALLBLADDER: Normal. The gallbladder is physiologically distended without evidence of stones, sludge, polyps, wall thickening or pericholecystic fluid. COMMON BILE DUCT: Normal in caliber measuring 0.2 cm in diameter. RIGHT KIDNEY: Normal. No hydronephrosis. No renal calculi or focal parenchymal lesions. The kidney measures 11.0 cm in maximum dimension. LEFT KIDNEY: Normal. No hydronephrosis. No renal calculi or focal parenchymal lesions. The kidney measures 9.4 cm in maximum dimension. SPLEEN: Normal. The spleen measures 10.3 cm in maximum dimension. FREE FLUID: None. US/US abdomen complete IMPRESSION: Liver demonstrates a heterogeneous echotexture suggesting an element of hepatic steatosis.
--- NOTE | ~2022-03-21 | XR_ITS ---
EXAMINATION: XR ELBOW, LEFT CLINICAL INFORMATION: Pain COMPARISON: None TECHNIQUE: AP, lateral, and oblique views of the left elbow. FINDINGS: The bones and soft tissues are normal. No fracture or joint effusion. Alignment is anatomic. Joint spaces are maintained. XR/XR elbow LT min 3V IMPRESSION: Normal left elbow.
== END 2022-03-21 09:13 | disposition home or self-care (01) ==
LOC: HO.US 09:12
PROVIDERS: Visit Provider Internal Medicine
DX: R10.11 Right upper quadrant pain (principal); M53.3 Sacrococcygeal disorders, not elsewhere classified; M54.16 Radiculopathy, lumbar region; M79.7 Fibromyalgia; M47.816 Spondylosis without myelopathy or radiculopathy, lumbar region
CPT/HCPCS: 73080; 76700; 99212

== ENCOUNTER 2022-04-04 05:59 | Outpatient (REF) | payer MEDICARE, MEDICAID, SELFPAY ==
--- NOTE | ~2022-04-04 | FL_ITS ---
EXAMINATION: XR FLUOROSCOPY WITH IMAGES CLINICAL INFORMATION: M53.3 - Sacrococcygeal disorders, not elsewhere classified COMPARISON: None. TECHNIQUE: Fluoroscopy performed by Dr. Buck Florence. Fluoroscopy time: 0.4 minutes DAP: 7.14 Gycm2 Images: 2 FINDINGS: Images of the pelvis demonstrate instrumentation projecting over the bilateral sacroiliac joints. FL/FL guidance in treatment room IMPRESSION: Fluoroscopic assistance for procedure performance; please see procedure note for full details.
== END 2022-04-04 06:00 | disposition home or self-care (01) ==
LOC: HO.RADIR 05:59
PROVIDERS: Visit Provider Anesthesiology
DX: M53.3 Sacrococcygeal disorders, not elsewhere classified (principal); M54.16 Radiculopathy, lumbar region; M79.7 Fibromyalgia; M47.816 Spondylosis without myelopathy or radiculopathy, lumbar region
CPT/HCPCS: 27096; J3300

== ENCOUNTER → 2022-05-02 09:23 | Outpatient (BNVA) | payer MEDICARE, MEDICAID, SELFPAY | PROVIDERS: PCP Internal Medicine; Visit Provider Nurse Practitioner Family | DX: M47.816 Spondylosis without myelopathy or radiculopathy, lumbar region (principal); M53.3 Sacrococcygeal disorders, not elsewhere classified | CPT/HCPCS: 99212 ==

== ENCOUNTER 2023-02-28 07:52 | Outpatient (REF) | payer MEDICARE, MEDICAID, SELFPAY ==
--- NOTE | ~2023-02-28 | US_ITS ---
EXAMINATION: US ABDOMEN COMPLETE CLINICAL INFORMATION: Right upper quadrant pain. COMPARISON: Ultrasound abdomen complete 03/21/2022. TECHNIQUE: Real-time imaging of the abdominal viscera. FINDINGS: PANCREAS: Normal. ABDOMINAL AORTA: The proximal, mid, and distal segments are normal in caliber. INFERIOR VENA CAVA: Visualized portions are normal. LIVER: The liver is normal in size. The liver contour is normal. Increased parenchymal echogenicity. No focal hepatic lesion. There is no intrahepatic biliary duct dilatation seen. GALLBLADDER: The gallbladder is physiologically distended without evidence of stones, sludge, polyps, wall thickening or pericholecystic fluid. Technologist reported the patient demonstrated a positive Hernandez's sign at the moment of the examination. COMMON BILE DUCT: Normal in caliber measuring 0.2 cm in diameter. RIGHT KIDNEY: No hydronephrosis or renal calculi. The kidney measures 10.4 cm in maximum dimension. There is a 0.5 cm hyperechoic focus in the lateral surface of the mid pole without associated shadowing or twinkle artifact. This is not visualized on the ultrasound from 03/21/2022. LEFT KIDNEY: Normal. No hydronephrosis. No renal calculi or focal parenchymal lesions. The kidney measures 10.1 cm in maximum dimension. SPLEEN: Normal. The spleen measures 9.5 cm in maximum dimension. FREE FLUID: None. US/US abdomen complete IMPRESSION: 1. There is a 0.5 cm hyperechoic focus in the lateral surface of the mid pole of the right kidney which could represent a nonobstructive calculus, small angiomyolipoma or potentially a tiny solid lesion. This is not visualized on the ultrasound from 03/21/2022, and it is too small to be characterized by CT or MR. A follow-up ultrasound in 6-12 months is recommended. 2. Technologist reported positive Hernandez's sign at the moment of the examination. However, there is no evidence of cholelithiasis, gallbladder wall thickening, or pericholecystic fluid to suggest acute cholecystitis. If there is clinical concern for acute cholecystitis, correlation with a nuclear medicine study could be obtained.
== END 2023-02-28 07:53 | disposition home or self-care (01) ==
LOC: HO.US 07:52
PROVIDERS: PCP Internal Medicine; Visit Provider Internal Medicine
DX: R10.11 Right upper quadrant pain (principal)
CPT/HCPCS: 76700

== ENCOUNTER 2023-03-05 08:28 | Outpatient (REF) | payer MEDICARE, MEDICAID, SELFPAY ==
[2023-03-05 08:46] LABS: MANUAL DIFF FLAG NO
[2023-03-05 08:50] LABS: Basophils Percent Auto 0.8 % (0-2); Eosinophils Absolute Auto 0.3 X10*3/uL (0.0-0.4); Eosinophils Percent Auto 5.5 % (0-4); Hematocrit 43.7 % (42.0-52.0); Hemoglobin 14.6 g/dl (14.0-18.0); Imm Gran Abs Auto 0.01 X10*3/uL (0.00-0.03); Imm Gran Pct Auto 0.2 % (0.0-0.4); Lymphocytes Absolute Auto 1.5 X10*3/uL (1.2-4.9); Lymphocytes Percent Auto 31.9 % (20-40); Mean Corpuscular HGB Conc 33.4 g/dl (31.0-36.0); Mean Corpuscular Hemoglobin 29.8 pg (27.0-33.0); Mean Corpuscular Volume 89.2 fL (80.0-98.0); Monocytes Absolute Auto 0.4 X10*3/uL (0.1-1.2); Monocytes Percent Auto 9.2 % (2-11); Neutrophils Absolute Auto 2.5 x10*3/uL (2.0-8.3); Neutrophils Percent Auto 52.4 % (45-73); Platelet Count 245 X10*3/uL (160-400); Red Cell Distribution Width 13.2 % (11.0-16.0); White Blood Count 4.8 X10*3/uL (4.8-10.8)
[2023-03-05 09:29] LABS: Alanine Aminotransferase 25 U/L (0-40); Alkaline Phosphatase 70 U/L (39-117); Anion Gap 11 (12-20); Aspartate Amino Transferase 20 U/L (5-37); Bilirubin Total 0.5 mg/dL (0.0-1.0); Blood Urea Nitrogen 10 mg/dL (9-16); Calcium 8.9 mg/dL (8.4-10.2); Carbon Dioxide 29 mmol/L (22-29); Chloride 108 mmol/L (96-108); Cholesterol 218 mg/dL; Estimated Glomerular Filt Rate > 60; Glucose Fasting 103 mg/dL (60-99); HDL Cholesterol 40 mg/dL; LDL Cholesterol Calculated 121 mg/dl; Potassium 4.7 mmol/L (3.3-5.1); Sodium 143 mmol/L (135-145); Total Protein 6.7 g/dL (6.5-8.0); Triglycerides 286 mg/dL
[2023-03-05 09:47] LABS: Vitamin D 25-OH Total 28.9 ng/mL (>30)
== END 2023-03-05 08:29 | disposition home or self-care (01) ==
LOC: HO.LAB 08:28
PROVIDERS: PCP Internal Medicine; Visit Provider Internal Medicine
DX: R10.11 Right upper quadrant pain (principal); E78.5 Hyperlipidemia, unspecified; E55.9 Vitamin D deficiency, unspecified
CPT/HCPCS: 36415; 80053; 80061; 82306; 85025

== ENCOUNTER → 2023-03-15 11:21 | Outpatient (BNVA) | payer MEDICARE, MEDICAID, SELFPAY | PROVIDERS: PCP Internal Medicine; Visit Provider Nurse Practitioner Family | DX: M53.3 Sacrococcygeal disorders, not elsewhere classified (principal); M79.7 Fibromyalgia; M47.816 Spondylosis without myelopathy or radiculopathy, lumbar region; M62.830 Muscle spasm of back | CPT/HCPCS: 99212 ==

== ENCOUNTER 2023-04-05 14:36 | Outpatient (AMB) | payer MEDICARE, MEDICAID, SELFPAY ==
--- NOTE | 2023-04-05 13:11 | MHC.OFFVIS ---
Intake Intake Visit Reasons: Disorder of kidney and ureter Intake Note: Patient presents today for initial visit Meds: none Antibiotic: None Blood Thinner: None Biodiesel Plant Manager Required: Yes Accompanied by: Self / Same As Patient Allergies seafood Allergy (Verified 05/08/23 13:37) Anaphylaxis HPI HPI Comments History of Present Illness Details Guru is a 42-year-old male who presents to the office for evaluation. 04/05/23-- The patient is a Maori speaking male. 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 States that he had a stone which was moving and had an episode of gross hematuria along with right flank pain a month ago. mentions having urinary urgency and dysuira. States having pain in the right side of the abdomen with no change in the intensity while eating. 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 Evaluation today-- Blood: negative, leukocytes: negative. Abdominal US?02/28/23-- 5 mm hyperechoic focus on the lateral surface of the kidney. Etiology is unclear. May represent a small angiomyolipoma, non obstructive calculus or potentially a tiny solid lesion. due to the size CT or MRI imaging may not be helpful as per radiology report and doing a follow-up US in 6-12 months is recommended. Plan: CT urogram was ordered. Follow-up after 6-8 weeks. [facility] Medical History Annual physical exam Asthma Depression with anxiety Dyslipidemia Epididymal mass Fibromyalgia CELESTE (generalized anxiety disorder) GERD (gastroesophageal reflux disease) Left elbow pain Mild recurrent major depression Mixed hyperlipidemia Right upper quadrant abdominal pain Surgical History History of esophagogastroduodenoscopy (EGD) History of left inguinal hernia repair History of testicular surgery Family History Maternal Grandfather History of lung cancer Paternal Uncle History of prostate cancer Father Asthma HTN (hypertension) Hx of CABG Mother Depression Other CVD (cardiovascular disease) Social History Housing: Apartment Alcohol intake: former Patient Tobacco Use Status: Never used Tobacco e-Cigarette/Vaping Use: Never Used Second Hand Smoke Exposure: No Advance Directives Date on File: 07/19/20 service: No Current occupational status: unemployed Cognitive needs: Yes Hearing needs: No Vision needs: No Review of Systems Const All systems reviewed & are unremarkable except as noted in HPI and below Reports no additional complaints Eyes Reports no additional complaints ENT Reports no additional complaints Card Denies dyspnea Resp Denies cough and Denies dyspnea GI Reports no additional complaints Musc Reports no additional complaints Skin/Breast Denies rash and Denies unusual bruising Neuro Reports no additional complaints Psych Reports no additional complaints Endo Reports no additional complaints Robert/Lymph Reports no additional complaints Aller/Immun Reports no additional complaints Physical Exam Const General: healthy appearing, no acute distress and well developed Orientation/consciousness: patient oriented x3 HEENT Head: Yes normocephalic and Yes atraumatic Eyes Conjunctivae: conjunctivae normal Neck Neck: Yes normal visual inspection Chest Chest palpation & inspection: normal inspection of the chest Resp Effort & Inspection: normal respiratory effort Cardio Rate: regular rate GI Inspection: Yes normal to inspection Skin General skin exam: no rashes or lesions noted Neuro General: patient oriented x3 Extrem General: No pedal edema Psych Appearance: grossly normal Affect: normal affect Results AMB Urinalysis, Automated UA Leukoctes 0 Cheli/uL Last Edit by Fix That Bug on 04/05/23 14:58 UA Nitrite Negative Last Edit by Fix That Bug on 04/05/23 14:58 UA Urobilinogen 0.2 mg/dL Last Edit by Fix That Bug on 04/05/23 14:58 UA Protein 0 mg/dL Last Edit by Fix That Bug on 04/05/23 14:58 UA pH 6.0 Last Edit by Fix That Bug on 04/05/23 14:58 UA Blood 0 Romero/uL Last Edit by Fix That Bug on 04/05/23 14:58 UA Specific [place] 1.020 Last Edit by Fix That Bug on 04/05/23 14:58 UA Ketone Negative Last Edit by Fix That Bug on 04/05/23 14:58 UA Bilirubin 0 mg/dL Last Edit by Fix That Bug on 04/05/23 14:58 UA Glucose 0 mg/dL Last Edit by Fix That Bug on 04/05/23 14:58 Results Reviewed Results Reviewed: Laboratory Last Values Urine pH (Auto) 6.0 04/05/23 14:56 Specific [place] (Auto) 1.020 04/05/23 14:56 Urine Protein (Auto) 0 mg/dL 04/05/23 14:56 Glucose (UA)(Auto) 0 mg/dL 04/05/23 14:56 Urine Ketones (Auto) Negative 04/05/23 14:56 Urine Blood (Auto) 0 Romero/uL 04/05/23 14:56 Urine Nitrite (Auto) Negative 04/05/23 14:56 Urine Bilirubin (Auto) 0 mg/dL 04/05/23 14:56 Urine Urobilinogen (Auto) 0.2 mg/dL 04/05/23 14:56 Leukocyte Esterase (Auto) 0 Cheli/uL 04/05/23 14:56 Date of Service: 02/28/23 EXAMINATION: US ABDOMEN COMPLETE CLINICAL INFORMATION: Right upper quadrant pain. COMPARISON: Ultrasound abdomen complete 03/21/2022. TECHNIQUE: Real-time imaging of the abdominal viscera. FINDINGS: PANCREAS: Normal. ABDOMINAL AORTA: The proximal, mid, and distal segments are normal in caliber. INFERIOR VENA CAVA: Visualized portions are normal. LIVER: The liver is normal in size. The liver contour is normal. Increased parenchymal echogenicity. No focal hepatic lesion. There is no intrahepatic biliary duct dilatation seen. GALLBLADDER: The gallbladder is physiologically distended without evidence of stones, sludge, polyps, wall thickening or pericholecystic fluid. Technologist reported the patient demonstrated a positive Hernandez's sign at the moment of the examination. COMMON BILE DUCT: Normal in caliber measuring 0.2 cm in diameter. RIGHT KIDNEY: No hydronephrosis or renal calculi. The kidney measures 10.4 cm in maximum dimension. There is a 0.5 cm hyperechoic focus in the lateral surface of the mid pole without associated shadowing or twinkle artifact. This is not visualized on the ultrasound from 03/21/2022. LEFT KIDNEY: Normal. No hydronephrosis. No renal calculi or focal parenchymal lesions. The kidney measures 10.1 cm in maximum dimension. SPLEEN: Normal. The spleen measures 9.5 cm in maximum dimension. FREE FLUID: None. IMPRESSION: 1.? There is a 0.5 cm hyperechoic focus in the lateral surface of the mid pole of the right kidney which could represent a nonobstructive calculus, small angiomyolipoma or potentially a tiny solid lesion. This is not visualized on the ultrasound from 03/21/2022, and it is too small to be characterized by CT or MR. A follow-up ultrasound in 6-12 months is recommended. 2.? Technologist reported positive Hernandez's sign at the moment of the examination. However, there is no evidence of cholelithiasis, gallbladder wall thickening, or pericholecystic fluid to suggest acute cholecystitis. If there is clinical concern for acute cholecystitis, correlation with a nuclear medicine study could be obtained. Assessment & Plan Assessment & Plan (1) Right flank pain: Code(s): R10.9 - Unspecified abdominal pain (2) Gross hematuria: Code(s): R31.0 - Gross hematuria (3) Disorder of kidney and ureter: Code(s): N28.9 - Disorder of kidney and ureter, unspecified Plan CT urogram was ordered. Follow-up after 6-8 weeks. Orders: Orders AMB Urinalysis Automated 04/05/23 Z13.9 - Encounter for screening, unspecified Patient Instructions: The patient had an opportunity to ask questions regarding treatment plan. All questions were answered. Imaging, Laboratory studies and physical exam results were discussed and reviewed in detail. No major barriers to understanding were identified. The patient expressed understanding and agreement with the above treatment plan. The patient is aware they should contact our office by phone for worsening of their current condition or the appearance of new symptoms. Compliance is encouraged with any medications and followup testing that is ordered. It is a privilege to be allowed the opportunity to participate in the urologic care of your patient. If you have any questions or concerns regarding treatment for the above conditions please do not hesitate to contact me. The office telephone contact is [phone]. This note is constructed in part using voice recognition software. While every effort has been made to ensure accuracy associate material handler errors may have been included. Yours sincerely, Jayde Valnecia MD Coding Level of Care Code New Pt Level 4 (15007) Diagnoses Right flank pain R10.9 Gross hematuria R31.0 Disorder of kidney and ureter N28.9
== END 2023-04-05 15:10 | disposition home or self-care (01) ==
PROVIDERS: PCP Internal Medicine; Visit Provider Urology
DX: R10.9 Unspecified abdominal pain (principal); R31.0 Gross hematuria; N28.9 Disorder of kidney and ureter, unspecified
CPT/HCPCS: 99204; 99214

== ENCOUNTER → 2023-04-05 14:36 | Outpatient (BNVA) | payer MEDICARE, MEDICAID, SELFPAY | PROVIDERS: PCP Internal Medicine; Visit Provider Urology | DX: R10.11 Right upper quadrant pain (principal); R31.0 Gross hematuria; N28.9 Disorder of kidney and ureter, unspecified; R39.15 Urgency of urination; R30.0 Dysuria | CPT/HCPCS: 99202 ==

== ENCOUNTER 2023-04-10 07:15 | Outpatient (REF) | payer MEDICARE, MEDICAID, SELFPAY ==
--- NOTE | ~2023-04-10 | FL_ITS ---
EXAMINATION: XR FLUOROSCOPY WITH IMAGES CLINICAL INFORMATION: Sacral coccygeal disorder COMPARISON: None available. TECHNIQUE: Fluoroscopy Supervised By: Dr. Buck Florence. Fluoroscopy Time: 0.3 minutes. Cumulative Dose: 10.6 mGy. DAP: 0.184 Gycm2. Images: 3. FINDINGS: Image demonstrates a needle superimposing over the region of the right SI joint with some contrast present. Images demonstrate a needle with some contrast superimposing over the left SI joint FL/FL guidance in treatment room IMPRESSION: Imaging assistance provided during a fluoroscopic procedure
== END 2023-04-10 07:16 | disposition home or self-care (01) ==
LOC: CF 07:15
PROVIDERS: PCP Internal Medicine; Visit Provider Anesthesiology
DX: M53.3 Sacrococcygeal disorders, not elsewhere classified (principal); M47.816 Spondylosis without myelopathy or radiculopathy, lumbar region; M62.830 Muscle spasm of back
CPT/HCPCS: 27096; J3301

== ENCOUNTER 2023-04-10 14:24 | Outpatient (AMB) | payer MEDICARE, MEDICAID, SELFPAY ==
[2023-04-10 14:46] VITALS: BP 124/72; PULSE 62; RESP 18; O2SAT 96; BMI 36.1
--- NOTE | 2023-04-10 14:46 | MHC.OFFVIS ---
Intake Vital Signs 04/10/23 14:46 04/10/23 15:19 Height 5 ft 3 in 5 ft 3 in Weight 204 lb 204 lb BMI 36.1 36.1 BP 124/72 124/68 Blood Pressure Location Lt brachial Rt brachial Position Sitting Sitting Respiration 18 14 Pulse 62 58 Pulse Source Pulse Oximeter Pulse Oximeter Pulse Oximetry (%) 96 96 Oxygen Delivery Method Room Air Room Air Comment Pre-op Post-op Intake Visit Reasons: BILATERAL THERAPEUTIC SIJ INJECTIONS Allergies seafood Allergy (Verified 04/10/23 14:46) Anaphylaxis PFS Medical History Annual physical exam Asthma Depression with anxiety Dyslipidemia Epididymal mass Fibromyalgia CELESTE (generalized anxiety disorder) GERD (gastroesophageal reflux disease) Left elbow pain Mild recurrent major depression Mixed hyperlipidemia Right upper quadrant abdominal pain Surgical History History of esophagogastroduodenoscopy (EGD) History of left inguinal hernia repair History of testicular surgery Family History Maternal Grandfather History of lung cancer Paternal Uncle History of prostate cancer Father Asthma HTN (hypertension) Hx of CABG Mother Depression Other CVD (cardiovascular disease) Social History Housing: Apartment Alcohol intake: former Patient Tobacco Use Status: Never used Tobacco e-Cigarette/Vaping Use: Never Used Second Hand Smoke Exposure: No Advance Directives Date on File: 07/19/20 service: No Current occupational status: unemployed Cognitive needs: Yes Hearing needs: No Vision needs: No Physical Exam Vital Signs: Last Vital Signs Pulse 58 04/10/23 15:19 Resp 14 04/10/23 15:19 BP 124/68 04/10/23 15:19 Pulse Ox 96 04/10/23 15:19 Oxygen Delivery Method Room Air 04/10/23 15:19 BMI result Body Mass Index 36.1 Results Reviewed Results Reviewed: 04/10/23 14:34 Lidocaine HCl 2 % MPF [Xylocaine 2 % MPF] 5 ml .ROUTE .STK-MED ONE Triamcinolone Acetonide [Kenalog-40] 40 mg .ROUTE .STK-MED ONE Assessment & Plan Assessment & Plan (1) Sacroiliac joint dysfunction of both sides: Code(s): M53.3 - Sacrococcygeal disorders, not elsewhere classified Plan: Bilateral therapeutic sacroiliac joint injection Informed consent was explained thoroughly to the patient. All questions about benefits and risks for the procedure were answered. Patient came to the operating room and was positioned prone on the operating table with the pillow under the pelvis. Time out was performed delineating name and of the patient, allergies and the nature of the procedure. The lower back and buttocks of the patient were prepped with ChloraPrep prepped and draped with sterile utility towels. C-arm was brought over the operating field and sq picture of patient's pelvis was demonstrated on the screen. For the right joint tilting C-arm contralateral to the site of the joint the most posterior portion of the joints was superimposed with anterior silhouette of the joint. Skin was injected in the projection of the joint slightly medial to the location of the joint with 25 gauge 1/2 inch needle using local lidocaine 2% .After that 22 gauge 3 and 1/2 inch needle was driven to the right joint in tunnel vision fashion. When needle entered the joint capsule injection of the contrast was performed demonstrating intra-articular and minimally periarticular spread of the contrast. After that 4 cc. of ropivacaine 0.5% mixed with kenalog was injected into the joint. Upon completion of the injections the needle was removed and the procedure was performed on the left joint in mirroring fashion. Total dose of kenalog was 80 mg. Sterile dressing was applied. Upon completion of the injection patient was taken outside of the operating room to the recovery room where recovered uneventfully. (2) Fibromyalgia: Code(s): M79.7 - Fibromyalgia (3) Lumbar spondylosis: Code(s): M47.816 - Spondylosis without myelopathy or radiculopathy, lumbar region (4) Muscle spasm of back: Code(s): M62.830 - Muscle spasm of back Plan Schedule for Bilateral intra-articular SIJ injections with steroids with local and fluoroscopy. All questions were answered and patient agreed with the plan. Follow up after injection and sooner if needed. Anticoagulation: Patient not on anticoagulant Justification for interventional therapy: ? Patient with average pain > 6/10 ? Patient has exhausted conservative therapy ? Patient unable to tolerate physical therapy due to pain The risks, consequences, alternatives, and benefits of various treatment options were discussed with the patient in great detail, including conservative management, injections and procedures. Patient aware of hyperglycemic effects of steroids. Orders: Orders FL guidance in treatment room Today M53.3 - Sacrococcygeal disorders, not elsewhere classified Coding Level of Care Code Procedure Only Diagnoses Sacroiliac joint dysfunction of both sides M53.3 Fibromyalgia M79.7 Lumbar spondylosis M47.816 Muscle spasm of back M62.830
[2023-04-10 15:19] VITALS: BP 124/68; PULSE 58; RESP 14; O2SAT 96; BMI 36.1
== END 2023-04-10 15:16 | disposition home or self-care (01) ==
LOC: HO.PMCPRC 14:24
PROVIDERS: PCP Internal Medicine; Visit Provider Anesthesiology
DX: M53.3 Sacrococcygeal disorders, not elsewhere classified (principal)
CPT/HCPCS: 27096

== ENCOUNTER 2023-05-08 13:32 | Outpatient (AMB) | payer MEDICARE, MEDICAID, SELFPAY ==
--- NOTE | 2023-05-08 13:35 | MHC.OFFVIS ---
Intake Vital Signs 05/08/23 13:36 Height 5 ft 3 in Weight 204 lb BMI 36.1 BP 133/85 Blood Pressure Location Lt brachial Position Sitting Respiration 14 Pulse 72 Pulse Source Pulse Oximeter Pulse Oximetry (%) 95 Oxygen Delivery Method Room Air Intake Visit Reasons: BILATERAL THERAPEUTIC SIJ INJECTIONS Air Intercept Controller Supervisor Required: Yes Air Intercept Controller Supervisor Name: Louisa [id number] Allergies seafood Allergy (Verified 05/08/23 13:37) Anaphylaxis Medication List - Last Reconciled 05/08/23 by Hue Juan LPN aripiprazole 5 mg PO DAILY atorvastatin 80 mg PO DAILY 90 days carbidopa-levodopa 25-100 mg 1 tab PO DAILY citalopram 10 mg PO DAILY clonazepam 1 mg PO BEDTIME PRN clonazepam 0.5 mg PO DAILY PRN dicyclomine 10 - 20 mg (1 - 2 x 10 mg) PO QID 30 days famotidine (Pepcid) 40 mg PO BID 30 days gabapentin 800 mg PO BID 30 days meloxicam 15 mg PO DAILY PRN 30 days methocarbamol 750 mg PO BID PRN 30 days sennosides (senna) 17.2 mg PO BEDTIME trazodone 100 - 150 mg PO BEDTIME PRN Ventolin HFA 90 mcg/actuation (albuterol sulfate) 2 puffs inhalation Q6H PRN 30 days NS HPI HPI Comments History of Present Illness Details Patient presents today for follow up to assess response to Bilateral Therapeutic SIJ injections on 04/10/[address] Florence. Patient reports no pain relief with SIJ injections and reports increased burning and pressure sensation in the lower back during injections which was self-limiting. He continues to endorse bilateral radicular back pain that radiates to both legs posteriorly with numbness and tingling. He was able to complete SLR testing with increase in pain with dorsiflexion bilaterally, worse on the left. Provocative testing for SIJ testing are continue to be positive as noted below. Will proceed with repeating L5-S1 TFESI as next steps. Denies any fever, abdominal or groin pain, bladder or bowel incontinence or saddle anesthesia. Past Procedures: 04/10/23: Bilateral Therapeutic SIJ injections-0% pain relief 04/04/22: Bilateral Diagnostic SIJ injections-100% 1-2 week pain relief, 60% pain relief for 3 months 02/24/22: Bilateral L5-S1 TFESI--75% ongoing pain relief 11/11/19: Bilateral diagnostic L3-L4 L5 MBB -0% pain relief PRIOR: Patient is a pleasant 41 years old Albanian speaking only male who presents today for ongoing chronic lower back and bilateral knee pain. 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 He is currently not employed and is on permanent disability for fibromyalgia. He reports his knees are tender to touch but do not bother him as much as his back today. Patient previously was seen by Dr. Florence 2 years ago and underwent bilateral diagnostic L3-L4 DR L5 MBBs on 11/11/19 without any pain relief. An MRI of the lumbar spine was then performed on 12/05/19 that showed minimal endplate Schmorl's nodes. Very small right foraminal disc protrusion at L5-S1, decreased in size compared to prior imaging without nerve root impingement. Patient has not followed up with our office since then and today reports his back pain has worsened and is mostly axial with radiation to both of his legs posteriorly into his feet with associated tingling in his bilateral feet and all toes. He describes his pain as constant, sharp, throbbing, shooting, and radiating with intermittent weakness in his lower legs. He reports that his back pain in the back is worse when he tries to bend his back forward or backward. Patient is also under the care of reverse logistics analyst for fibromyalgia and has been taking gabapentin and baclofen with minimal relief. Patient reports that baclofen has not been effective and is asking to try another muscle relaxant. Patient has completed physical therapy over 2 years ago and a TENS unit with no improvement in his pain. He is unable to tolerate PT now due to significant pain and his current condition. Patient denies any chiropractic manipulation, acupunctures, massage, herbal medications or CBT therapy. He denies any fever, abdominal or groin pain, malaise, weight loss, bladder/bowel dysfunction or saddle anesthesia. He reports intermittent weakness. Ambulates without assistive devices. [facility] Medical History Annual physical exam Asthma Depression with anxiety Dyslipidemia Epididymal mass Fibromyalgia CELESTE (generalized anxiety disorder) GERD (gastroesophageal reflux disease) Left elbow pain Mild recurrent major depression Mixed hyperlipidemia Right upper quadrant abdominal pain Surgical History History of esophagogastroduodenoscopy (EGD) History of left inguinal hernia repair History of testicular surgery Family History Maternal Grandfather History of lung cancer Paternal Uncle History of prostate cancer Father Asthma HTN (hypertension) Hx of CABG Mother Depression Other CVD (cardiovascular disease) Social History Housing: Apartment Alcohol intake: former Patient Tobacco Use Status: Never used Tobacco e-Cigarette/Vaping Use: Never Used Second Hand Smoke Exposure: No Advance Directives Date on File: 07/19/20 service: No Current occupational status: unemployed Cognitive needs: Yes Hearing needs: No Vision needs: No Review of Systems Const All systems reviewed & are unremarkable except as noted in HPI and below Physical Exam Vital Signs: Last Vital Signs Pulse 72 05/08/23 13:36 Resp 14 05/08/23 13:36 BP 133/85 05/08/23 13:36 Pulse Ox 95 05/08/23 13:36 Oxygen Delivery Method Room Air 05/08/23 13:36 BMI result Body Mass Index 36.1 General: Appears afebrile. Alert and oriented. Mood and affect appropriate. Follows and participates in conversation appropriately. Respiratory effort is unlabored. No cough. Able to transition from sit to stand unassisted. Back/Spine/Pelvis Other: Patient is able to walk on heels and tip toes without difficulty and unassisted. Good motor tone bilaterally. Can flex forward 65-75 and extend to 5-10 degrees before experiencing lumbar pain. Facet loading positive bilaterally. Demonstrates 5/5 strength of quadriceps bilaterally as well as flexion/dorsiflexion of bilateral feet against resistance. Significant TTP in projection of bilateral SIJs. Kehinde's test, Gaenslen test and Stinchfield test resulted in significant pain in the projection of the bilateral SIJ, left>right. Corey signs positive bilaterally. No groin pain with internal or external hip rotations. Multiple fibromyalgia 16/16 TTP points bilaterally. Cervical Spine: cervical ROM normal, cervical muscular tenderness, No Cervical spine tenderness and No step off deformity Thoracic/Lumbar Spine: thoracic and lumbar spine normal to inspection, Lasegue's sign positive bilateral and localized, pain with thoraco-lumbar ROM (Flexion and extension), paraspinal muscle tenderness, thoraco-lumbar ROM limited, thoraco-lumbar spasm, thoracic spinal tenderness, No lumbar spinal tenderness and straight leg raise positive bilateral at 40 degrees Pelvis: buttock tenderness bilaterally and sciatic notch tenderness Sacroiliac joints: bilaterally Results Reviewed Results Reviewed: XR LUMBAR SPINE. BILATERAL KNEE 11/23/21 CLINICAL INFORMATION: Low back pain. COMPARISON: MRI lumbar spine 12/05/2019. TECHNIQUE: Lumbar spine 3 views. Bilateral knee 3 views each. FINDINGS: Lumbar spine: There is normal lumbar lordosis. The vertebral heights and alignment are normal. The disc heights are preserved. There is no visible acute fracture, dislocation or lytic process. The SI joints are symmetrical and normal. The paravertebral soft tissues are normal. Left knee: There is mild loss of medial and lateral compartment joint space. The patellofemoral compartment joint space is preserved. No visible acute fracture, dislocation or subluxation seen. Right knee: There is mild loss of medial and lateral compartment joint space without bony erosive changes. No loose bodies or joint effusion seen. IMPRESSION: Unremarkable lumbar spine exam. Mild degenerative changes medial and lateral compartment bilateral knees. No acute fracture or loose body seen. MR LUMBAR SPINE WITHOUT CONTRAST 12/05/2019 CLINICAL INFORMATION: Low back pain. Numbness in legs. ? COMPARISON: MRI dated 05/29/2016.? FINDINGS: Small endplate Schmorl's nodes present at various levels. The discs are fairly well hydrated. No significant disc space narrowing evident. The distal cord, conus tip, and cauda equina nerve roots are normal. There is no central canal stenosis or significant foraminal narrowing. A very small right foraminal disc protrusion abuts the right L5 nerve root without compression deformity, decreased in size when compared to the prior study. No additional disc protrusions are seen. The paraspinal soft tissues are normal. ? IMPRESSION: Minimal endplate Schmorl's nodes. Very small right foraminal disc protrusion at L5-S1, decreased in size compared to prior imaging without nerve root impingement.? Assessment & Plan Assessment & Plan (1) Sacroiliac joint dysfunction of both sides: Code(s): M53.3 - Sacrococcygeal disorders, not elsewhere classified (2) Fibromyalgia: Code(s): M79.7 - Fibromyalgia (3) Lumbar spondylosis: Code(s): M47.816 - Spondylosis without myelopathy or radiculopathy, lumbar region (4) Muscle spasm of back: Code(s): M62.830 - Muscle spasm of back (5) Lumbosacral radiculopathy: Code(s): M54.17 - Radiculopathy, lumbosacral region Plan Schedule for Bilateral L5-S1 TFESI with local and fluoroscopy for chronic radicular low back pain. Patient is aware to call if pain worsens or if he develops any red flag symptoms to seek emergency care. Patient denies any cauda equina syndrome symptoms at this time. All questions were answered and patient agreed with the plan. Follow up after injections and sooner if needed. Anticoagulation: Patient not on anticoagulant Justification for interventional therapy: ? Patient with average pain > 6/10 ? Patient has exhausted conservative therapy ? Patient unable to tolerate physical therapy due to pain The risks, consequences, alternatives, and benefits of various treatment options were discussed with the patient in great detail, including conservative management, injections and procedures. Patient aware of hyperglycemic effects of steroids. Coding Level of Care Code Est Pt Level 4 (62631) Diagnoses Sacroiliac joint dysfunction of both sides M53.3 Fibromyalgia M79.7 Lumbar spondylosis M47.816 Muscle spasm of back M62.830 Lumbosacral radiculopathy M54.17
[2023-05-08 13:36] VITALS: BP 133/85; PULSE 72; RESP 14; O2SAT 95; BMI 36.1
== END 2023-05-08 13:55 | disposition home or self-care (01) ==
PROVIDERS: PCP Internal Medicine; Visit Provider Nurse Practitioner Family
DX: M53.3 Sacrococcygeal disorders, not elsewhere classified (principal); M79.7 Fibromyalgia; M47.816 Spondylosis without myelopathy or radiculopathy, lumbar region; M62.830 Muscle spasm of back; M54.17 Radiculopathy, lumbosacral region
CPT/HCPCS: 99214

== ENCOUNTER → 2023-05-08 13:32 | Outpatient (BNVA) | payer MEDICARE, MEDICAID, SELFPAY | PROVIDERS: PCP Internal Medicine; Visit Provider Nurse Practitioner Family | DX: M53.3 Sacrococcygeal disorders, not elsewhere classified (principal); M47.816 Spondylosis without myelopathy or radiculopathy, lumbar region; M79.7 Fibromyalgia; M62.830 Muscle spasm of back; M54.17 Radiculopathy, lumbosacral region | CPT/HCPCS: 99212 ==

== ENCOUNTER 2023-06-05 06:08 | Outpatient (REF) | payer MEDICARE, MEDICAID, SELFPAY ==
--- NOTE | ~2023-06-05 | FL_ITS ---
EXAMINATION: XR FLUOROSCOPY WITH IMAGES CLINICAL INFORMATION: Radiculopathy lumbar sacral COMPARISON: None available. TECHNIQUE: Fluoroscopy Supervised By: Belinda. Fluoroscopy Time: 0.4 minutes. Cumulative Dose: 20.1 mGy. DAP: 0.35 Gycm2. Images: 2. FINDINGS: Images submitted shows surgical incidence overlying the left and right L5-S1 region. Contrast seen in the regions FL/FL guidance in treatment room IMPRESSION: Fluoroscopy provided with imaging
== END 2023-06-05 06:09 | disposition home or self-care (01) ==
LOC: CF 06:08
PROVIDERS: Visit Provider Anesthesiology
DX: M54.17 Radiculopathy, lumbosacral region (principal); M47.816 Spondylosis without myelopathy or radiculopathy, lumbar region; M62.830 Muscle spasm of back
CPT/HCPCS: 64483; J3301

== ENCOUNTER 2023-06-05 13:14 | Outpatient (AMB) | payer MEDICARE, MEDICAID, SELFPAY ==
[2023-06-05 13:27] VITALS: BP 116/88; PULSE 84; RESP 16; O2SAT 96; BMI 36.1
--- NOTE | 2023-06-05 13:27 | MHC.OFFVIS ---
Intake Vital Signs 06/05/23 13:27 06/05/23 14:29 Height 5 ft 3 in Weight 204 lb BMI 36.1 BP 116/88 126/74 Blood Pressure Location Lt brachial Lt brachial Position Sitting Sitting Respiration 16 16 Pulse 84 69 Pulse Source Pulse Oximeter Pulse Oximeter Pulse Oximetry (%) 96 96 Oxygen Delivery Method Room Air Room Air Comment pre-op post-op Intake Visit Reasons: BILATERAL L5, S1 TFESI Allergies seafood Allergy (Verified 06/05/23 14:30) Anaphylaxis [facility] Medical History Annual physical exam Asthma Depression with anxiety Dyslipidemia Epididymal mass Fibromyalgia CELESTE (generalized anxiety disorder) GERD (gastroesophageal reflux disease) Left elbow pain Mild recurrent major depression Mixed hyperlipidemia Right upper quadrant abdominal pain Surgical History History of esophagogastroduodenoscopy (EGD) History of left inguinal hernia repair History of testicular surgery Family History Maternal Grandfather History of lung cancer Paternal Uncle History of prostate cancer Father Asthma HTN (hypertension) Hx of CABG Mother Depression Other CVD (cardiovascular disease) Social History Housing: Apartment Alcohol intake: former Patient Tobacco Use Status: Never used Tobacco e-Cigarette/Vaping Use: Never Used Second Hand Smoke Exposure: No Advance Directives Date on File: 07/19/20 service: No Current occupational status: unemployed Cognitive needs: Yes Hearing needs: No Vision needs: No Physical Exam Vital Signs: Last Vital Signs Pulse 69 06/05/23 14:29 Resp 16 06/05/23 14:29 BP 126/74 06/05/23 14:29 Pulse Ox 96 06/05/23 14:29 Oxygen Delivery Method Room Air 06/05/23 14:29 BMI result Body Mass Index 36.1 Results Reviewed Results Reviewed: 06/05/23 13:42 Lidocaine HCl 2 % MPF [Xylocaine 2 % MPF] 5 ml .ROUTE .STK-MED ONE Triamcinolone Acetonide [Kenalog-40] 40 mg .ROUTE .STK-MED ONE Assessment & Plan Assessment & Plan (1) Sacroiliac joint dysfunction of both sides: Code(s): M53.3 - Sacrococcygeal disorders, not elsewhere classified (2) Fibromyalgia: Code(s): M79.7 - Fibromyalgia (3) Lumbar spondylosis: Code(s): M47.816 - Spondylosis without myelopathy or radiculopathy, lumbar region (4) Muscle spasm of back: Code(s): M62.830 - Muscle spasm of back (5) Lumbosacral radiculopathy: Code(s): M54.17 - Radiculopathy, lumbosacral region Plan: Transforaminal epidural steroid injection L5-S1 bilateral. Informed consent was thoroughly explained to the patient before the procedure.? The patient came to the operating room.? He was positioned prone on operating table with a pillow under his abdomen.? Time-out was performed delineating correct site and side of the procedure, nature of the injection, name and date of of the patient. The lower back of the patient was prepped with ChloraPrep and draped with sterile utility towels.? C-arm was brought over the operating field and sq picture of L5 vertebra were demonstrated on the screen.? The right side was chosen as the side of the injection.? Tilting machine ipsilateral to the right at the level of L5 1st the most prominent picture of the left pedicle was obtained on the screen.? 3 mm below the level of the lowest point of the pedicle projection to the skin small amount of lidocaine 1% 3-4 cc was injected to anesthetize the skin.? After that 5 in 22 gauge Quincke point needle was inserted through the skin wheal and was advanced to L5-S1 foramina on anterior posterior, lateral and oblique views intermittently.? When tip of the needle entered foramina projection on AP view injection of the contrast was performed demonstrating epidural and perineural spread of the contrast.? After that injection of the treatment medicine 4 cc of lidocaine 1% mixed with Kenalog 40 mg was injected into the foramina.? Injection of the contrast and injection of the treatment medicine was observed live on the screen.? No intrathecal and no intravascular spread of the contrast was noted. After that the procedure was performed in the same very fashion on L5-S1 level on the left. Upon completion of the procedure sterile Band-Aids were applied. Patient tolerated procedure well he was taken outside of the operating room where he recovered uneventfully.? He went home without immediate complications. Plan Schedule for Bilateral L5-S1 TFESI with local and fluoroscopy for chronic radicular low back pain. Patient is aware to call if pain worsens or if he develops any red flag symptoms to seek emergency care. Patient denies any cauda equina syndrome symptoms at this time. All questions were answered and patient agreed with the plan. Follow up after injections and sooner if needed. Anticoagulation: Patient not on anticoagulant Justification for interventional therapy: ? Patient with average pain > 6/10 ? Patient has exhausted conservative therapy ? Patient unable to tolerate physical therapy due to pain The risks, consequences, alternatives, and benefits of various treatment options were discussed with the patient in great detail, including conservative management, injections and procedures. Patient aware of hyperglycemic effects of steroids. Orders: Orders FL guidance in treatment room 06/05/23 M54.17 - Radiculopathy, lumbosacral region Coding Level of Care Code Procedure Only Diagnoses Sacroiliac joint dysfunction of both sides M53.3 Fibromyalgia M79.7 Lumbar spondylosis M47.816 Muscle spasm of back M62.830 Lumbosacral radiculopathy M54.17
[2023-06-05 14:29] VITALS: BP 126/74; PULSE 69; RESP 16; O2SAT 96
== END 2023-06-05 14:12 | disposition home or self-care (01) ==
LOC: HO.PMCPRC 13:14
PROVIDERS: PCP Internal Medicine; Visit Provider Anesthesiology
DX: M47.27 Other spondylosis with radiculopathy, lumbosacral region (principal); M53.3 Sacrococcygeal disorders, not elsewhere classified; M79.7 Fibromyalgia; M62.830 Muscle spasm of back
CPT/HCPCS: 64483

== ENCOUNTER 2023-06-13 09:02 | Outpatient (AMB) | payer MEDICARE, MEDICAID, SELFPAY ==
--- NOTE | 2023-06-13 09:08 | A.OFFVIS_ITS ---
Intake Vital Signs 06/13/23 09:16 Height 5 ft 3 in Weight 200 lb 2.876 oz BMI 35.5 BP 126/67 Blood Pressure Location Rt brachial Position Sitting Pulse 66 Intake Visit Reasons: Gastroesophageal reflux disease (GERD) Intake Note: Patient presents to in office visit today in follow up of GERD. CC: Patient c/o RUQ abdominal pain for about 7 months. He reports pain comes and goes and when he has it is a 9/10 pain scale. He continues to c/o GERD, constipation, hemorrhoids, rectal bleeding, and occasional nausea and vomiting. Allergies No Known Drug Allergies Allergy (Unknown, Verified 06/13/23 09:20) none seafood Allergy (Verified 06/05/23 14:30) Anaphylaxis HPI Gastroesophageal reflux disease (GERD) HPI Details Assessment & Plan (1) GERD (gastroesophageal reflux diseas e): Code(s): K21.9 - Gastro-esophageal reflux disease without esophagitis Qualifiers: Esophagitis presence: esophagitis presence not specified Qualified Code(s): K21.9 - Gastro-esophageal reflux disease without esophagitis Plan: Citizen [place] #[id number] He is doing ok, but is having some HB. He has not had his famotidine for 2 months, although he SHOULD have had it through October. I verify that we have the correct pharmacy, and we do. I again give him my card with the phone # and it seems he was not calling the correct # - as I asked him why he did not call and he said its hard to get through here. I think he may have been calling [facility]. He will call me if he does not get the medicine. ROV 6 months. (2) Constipation: Code(s): K59.00 - Constipation, unspecified Medications: Refilled famotidine (Pepcid ) D/c 20mg dose as not controllin g sx 40 mg PO BID 30 d ays 60 tabs 6RF K21.9 - Gastro-eso phageal reflux dis ease without esoph agitis sennosides (senna) 17.2 mg (2 x 8.6 m g) PO BEDTIME 30 d ays 60 caps 6RF co nstipation K59.00 - Constipat ion, unspecified dicyclomine 10 - 20 mg (1 - 2 x 10 mg) PO QID 30 days 240 caps 5RF K62.89 - Other spe cified diseases of anus and rectum TODAY'S VISIT Citizen [place] #Denisse Live He ran out of his famotidine, we will get this refilled. He has a new problem, onset of about 7 months of right flank pain that started suddenly and is described as stabbing that will worsen with some bending or twisting and will last sometimes for a couple of days. This happens about 2-3 times a month. It has not r/t eating or moving his bowels. Once he had the pain and had some in his back and some hematuria I think I passed a kidney stone. This is different form the pain he is describing. The pain does not move from one spot. He had an US with his PCP that did not uncover a reason, but he had sensitivity in this spot with US probe. He only takes 1 senna a night, and he feels he is having incomplete evacuation. Will start Linzess to see if this is bowel spasm at 72mcg. He has bentyl 10mg available to him, he is unsure how many times a day he is taking this as the meds are prepared for me. I want him to try to take 2 caps if he has the pain. BUT on PE he is very sensitive at T-8-10 and has CVA tenderness that radiates to the area of pain. Also, the painful area is actually on the ribcage with compression/palpation. I will add a throacic xr, he has known lumbar spondyosis/DJD. ROV 4 weeks. [facility] Medical History Right upper quadrant abdominal pain Left elbow pain CELESTE (generalized anxiety disorder) Mixed hyperlipidemia Mild recurrent major depression Dyslipidemia Annual physical exam Epididymal mass Depression with anxiety Fibromyalgia GERD (gastroesophageal reflux disease) Asthma Surgical History History of testicular surgery History of esophagogastroduodenoscopy (EGD) History of left inguinal hernia repair Family History Maternal Grandfather History of lung cancer Paternal Uncle History of prostate cancer Father Asthma HTN (hypertension) Hx of CABG Mother Depression Other CVD (cardiovascular disease) Social History Housing: Apartment Alcohol intake: former Patient Tobacco Use Status: Never used Tobacco e-Cigarette/Vaping Use: Never Used Second Hand Smoke Exposure: No Advance Directives Date on File: 07/19/20 service: No Current occupational status: unemployed Cognitive needs: Yes Hearing needs: No Vision needs: No Review of Systems Const Denies fatigue, Denies fever(s), Denies night sweats, Denies poor appetite and Denies weight loss ENT Reports Normal hearing present, Denies dental pain, Denies dysphagia, Denies hearing loss, Denies mouth pain, Denies odynophagia, Denies throat swelling, Denies tongue swelling and Reports other (Dentition adequate) Card Reports no additional complaints Resp Reports no additional complaints GI Denies abdominal pain, Denies melena, Denies bloating, Denies hematochezia, Reports constipation, Denies GI cramping, Denies dysphagia, Denies excessive flatus, Denies early satiety, Reports heartburn, Denies diarrhea, Denies nausea, Denies odynophagia, Denies vomiting and Denies hematemesis Reports hematuria and Reports flank pain Musc Reports back pain Skin/Breast Denies pruritus, Denies lesions, Denies rash and Denies jaundice Neuro Reports Normal hearing present and Denies Abnormal speech present Endo Denies fatigue Aller/Immun Denies throat swelling and Denies tongue swelling Physical Exam Vital Signs: Last Vital Signs Pulse 66 06/13/23 09:16 BP 126/67 06/13/23 09:16 BMI result Body Mass Index 35.5 Const General: cooperative, no acute distress, well developed and well groomed Nutritional Appearance: well nourished and obese Orientation/consciousness: oriented to person, oriented to place and oriented to time Limitations: language barrier HEENT Head: Yes normocephalic and Yes atraumatic Eyes General: appearance normal, both eyes and all related structures Pupils: Equal, round and reactive pupils present Neck Neck: Yes normal visual inspection and Yes no lymphadenopathy Thyroid: Thyroid normal Chest Chest palpation & inspection: localized rib tenderness with anteroposterior compression (Right side) Resp Effort & Inspection: normal respiratory effort and able to speak in complete sentences Auscultation: clear to auscultation bilaterally Cardio Rate: regular rate Rhythm: regular rhythm Heart sounds: Normal, physiologic split S2 sound present Peripheral pulses: radial pulses present and posterior tibial pulses present GI Inspection: No distended, No Abdominal panniculus present and Yes obesity Palpation (GI): Soft to palpation, nontender, no guarding, not rigid and No hepatosplenomegaly present Percussion: Yes normal to percussion Auscultation: normal bowel sounds Rectal Exam - Male: Yes deferred General: Yes CVA tenderness Back/Spine/Pelvis Back: CVA tenderness Thoracic/Lumbar Spine: thoracic spinal tenderness at T8, at T9, at T10 and at T11 Skin General skin exam: no rashes or lesions noted, turgor normal, skin not dry, no jaundice, No spider nevi and no striae Rashes: no rashes Nails: normal Neuro General: oriented to person, oriented to place and oriented to time Cranial nerves: Yes Equal, round and reactive pupils present and Yes Normal hearing present Speech: No Abnormal speech present Extrem General: Yes normal to inspection, No clubbing, No cyanosis and No edema Psych Appearance: grossly normal and well kempt Mental Status: mental status grossly normal Speech and movement: Normal speech and movement present Affect: normal affect Attitude: cooperative Thought process: Normal thought process present and not confabulating Thought content: Normal thought content present Insight: Limited insight present (Psych) Judgement: Limited judgement present (Psych) Assessment & Plan Assessment & Plan (1) GERD (gastroesophageal reflux disease): Code(s): K21.9 - Gastro-esophageal reflux disease without esophagitis Qualifiers: Esophagitis presence: esophagitis presence not specified Qualified Code(s): K21.9 - Gastro-esophageal reflux disease without esophagitis Plan: Citizen [place] #Denisse Live He ran out of his famotidine, we will get this refilled. He has a new problem, onset of about 7 months of right flank pain that started suddenly and is described as stabbing that will worsen with some bending or twisting and will last sometimes for a couple of days. This happens about 2-3 times a month. It has not r/t eating or moving his bowels. Once he had the pain and had some in his back and some hematuria I think I passed a kidney stone. This is different form the pain he is describing. The pain does not move from one spot. He had an US with his PCP that did not uncover a reason, but he had sensitivity in this spot with US probe. He only takes 1 senna a night, and he feels he is having incomplete evacuation. Will start Linzess to see if this is bowel spasm at 72mcg. He has bentyl 10mg available to him, he is unsure how many times a day he is taking this as the meds are prepared for me. I want him to try to take 2 caps if he has the pain. BUT on PE he is very sensitive at T-8-10 and has CVA tenderness that radiates to the area of pain. Also, the painful area is actually on the ribcage with compression/palpation. I will add a throacic xr, he has known lumbar spondyosis/DJD. ROV 4 weeks. (2) Constipation: Code(s): K59.00 - Constipation, unspecified (3) Right flank pain: Code(s): R10.9 - Unspecified abdominal pain (4) Back pain: Code(s): M54.9 - Dorsalgia, unspecified Orders: Orders XR thoracic spine 2V Today M54.9 - Dorsalgia, unspecified, R10.9 - Unspecified abdominal pain Medications: New linaclotide (Linzess) 72 mcg PO QAM 30 caps 3RF K59.00 - Constipation, unspecified, R10.9 - Unspecified abdominal pain Refilled famotidine (Pepcid) D/c 20mg dose as not controlling sx 40 mg PO BID 30 days 60 tabs 6RF K21.9 - Gastro-esophageal reflux disease without esophagitis dicyclomine 10 - 20 mg (1 - 2 x 10 mg) PO QID 30 days 240 caps 5RF K62.89 - Other specified diseases of anus and rectum Coding Level of Care Code Est Pt Level 4 (20678) Diagnoses Gastroesophageal reflux disease, unspecified whether esophagitis present K21.9 Esophagitis presence: esophagitis presence not specified Constipation K59.00 Right flank pain R10.9 Back pain M54.9
[2023-06-13 09:16] VITALS: BP 126/67; PULSE 66; BMI 35.5
== END 2023-06-13 10:08 | disposition home or self-care (01) ==
PROVIDERS: PCP Internal Medicine; Visit Provider Nurse Practitioner
DX: K21.9 Gastro-esophageal reflux disease without esophagitis (principal); K59.00 Constipation, unspecified; R10.9 Unspecified abdominal pain; M54.9 Dorsalgia, unspecified
CPT/HCPCS: 99214

== ENCOUNTER → 2023-06-13 09:02 | Outpatient (BNVA) | payer MEDICARE, MEDICAID, SELFPAY | PROVIDERS: PCP Internal Medicine; Visit Provider Nurse Practitioner | DX: K21.9 Gastro-esophageal reflux disease without esophagitis (principal); K59.00 Constipation, unspecified; R10.9 Unspecified abdominal pain; M54.9 Dorsalgia, unspecified | CPT/HCPCS: 99212 ==

== ENCOUNTER 2023-06-19 08:08 | Outpatient (REF) | payer MEDICARE, MEDICAID, SELFPAY ==
--- NOTE | ~2023-06-19 | XR_ITS ---
EXAMINATION: XR THORACOLUMBAR SPINE CLINICAL INFORMATION: Back pain COMPARISON: 11/25/2014 TECHNIQUE: 3 views of the thoracic spine FINDINGS: Mild dextroscoliosis of the thoracic spine. Mild multilevel degenerative changes in the thoracic spine. Thoracic vertebral body heights are preserved. XR/XR thoracic spine 2V IMPRESSION: Mild multilevel degenerative changes in the thoracic spine..
[2023-06-19 09:03] LABS: Anion Gap 12 (12-20); Carbon Dioxide 29 mmol/L (22-29); Chloride 106 mmol/L (96-108); Estimated Glomerular Filt Rate > 60; Potassium 4.5 mmol/L (3.3-5.1); Sodium 142 mmol/L (135-145)
== END 2023-06-19 08:09 | disposition home or self-care (01) ==
LOC: HO.LAB 08:08
PROVIDERS: Visit Provider Urology
DX: R10.9 Unspecified abdominal pain (principal); M54.9 Dorsalgia, unspecified; N28.9 Disorder of kidney and ureter, unspecified
CPT/HCPCS: 36415; 72070; 80051; 82565

== ENCOUNTER 2023-06-20 08:03 | Outpatient (REF) | payer MEDICARE, MEDICAID, SELFPAY ==
--- NOTE | ~2023-06-20 | CT_ITS ---
EXAMINATION: CT ABDOMEN AND PELVIS WITHOUT AND WITH CONTRAST CLINICAL INFORMATION: Kidney and ureter disorder COMPARISON: 02/28/2023 abdominal ultrasound TECHNIQUE: Noncontrast CT of the abdomen and pelvis is performed followed by split bolus contrast-enhanced images using 85 mL Omnipaque 350 contrast.? Postcontrast imaging is performed during the combined nephrogram and excretion phase. Sagittal and coronal reformatted images were obtained on the technologist's workstation for both the precontrast and postcontrast phases. This CT examination was performed using dose optimization techniques as appropriate, variously including the following: *Automated exposure control *Adjustment of mA and/or kV according to patient size (this includes techniques or standardized protocols for targeted exams where dose is matched to indication/reason for exam; i.e. extremities or head) *Use of iterative reconstruction technique DLP: 1010 mGy-cm FINDINGS: SCIENTIFIC LINGUIST: Nonobstructive bowel pattern. Right hemipelvic phlebolith. LUNG BASES: Mild right middle lobe atelectasis. Nonenlarged heart. No pericardial effusion. LIVER, GALLBLADDER, AND BILIARY TREE: The liver is normal in size, shape, and attenuation. No focal hepatic lesion or biliary ductal dilatation is present. Small hepatic calcification. The gallbladder is unremarkable with no evidence of radiopaque gallstones, gallbladder wall thickening, or obvious pericholecystic inflammatory changes. PANCREAS: Unremarkable. SPLEEN: Unremarkable. ADRENAL GLANDS: Unremarkable. KIDNEYS AND URETERS: The kidneys are normal in size, shape, and attenuation. No hydronephrosis or hydroureter. Tiny left upper pole nonobstructing calculus. No correlate for 5 mm hyperechoic right lateral midpole focus seen on recent ultrasound. Mild nonspecific bilateral perinephric stranding. BLADDER: Decompressed. GASTROINTESTINAL TRACT: Unremarkable stomach. Nonobstructive bowel pattern. Unremarkable terminal ileum and appendix. No colonic pathology recognized. ABDOMINAL WALL: No significant hernia is appreciated. LYMPH NODES: Normal. VASCULAR: Unremarkable. PELVIC VISCERA: Prostate calcifications. Phleboliths. OSSEUS STRUCTURES: Likely benign and femoral and left acetabular bone islands. CT/CT urogram IMPRESSION: No correlate to 5 mm hyperechoic right renal focus seen on recent ultrasound. Follow-up renal ultrasound in 6 months recommended. Tiny left upper pole nonobstructing renal calculus.
[2023-06-20] MEDS: iohexoL 350 MG/ML 100 ML INFUS..BTL IV (09:59)
== END 2023-06-20 08:04 | disposition home or self-care (01) ==
LOC: HO.CT 08:03
PROVIDERS: PCP Internal Medicine; Visit Provider Urology
DX: N28.9 Disorder of kidney and ureter, unspecified (principal)
CPT/HCPCS: 74178; Q9967

== ENCOUNTER 2023-06-28 09:34 | Outpatient (AMB) | payer MEDICARE, MEDICAID, SELFPAY ==
--- NOTE | 2023-06-28 09:35 | A.OFFVIS_ITS ---
Intake Intake Visit Reasons: 6w/CT/gross hematuria Intake Note: Patient presents today for a follow-up on Gross Hematuria: CT Scan Completed on 06/20/2023: Meds- None Allergies to Antibiotic- No Known Allergies Blood Thinner- None Unified Communications Architect Required: No Accompanied by: Self / Same As Patient Allergies No Known Drug Allergies Allergy (Unknown, Verified 08/02/23 10:36) none seafood Allergy (Verified 08/02/23 10:36) Anaphylaxis HPI HPI Comments History of Present Illness Details Guru is a 43-year-old male who presents today to the office for a follow-up. 06/28/2023? He is followed today for gross hematuria.?The patient is a Thai speaking male. Certified business attorney was present during the visit. He was last seen by me on 04/05/[address] urogram was ordered, and he was advised to follow-up post. Patient states that he had hematuria which has been resolved at this time. He denies any other urinary tract symptoms at this time. ? I reviewed the CT urogram results from 06/20/2023 revealed Tiny left upper pole nonobstructing renal calculus. There was no correlation to 5 mm hyperechoic right renal focus seen on recent ultrasound. Review of charts: Abdominal US?02/28/23-- 5 mm hyperechoic focus on the lateral surface of the kidney. Etiology is unclear. May represent a small angiomyolipoma, non obstructive calculus or potentially a tiny solid lesion.? 06/28/2023: Evaluation today?UA?leukocyt es: negative; blood: negative. 06/28/2023: Plan: 24-hour urine collection was ordered. Encouraged the patient to consume adequate amount of fluids. Follow-up in 10 weeks. [facility] Medical History Right upper quadrant abdominal pain Left elbow pain CELESTE (generalized anxiety disorder) Mixed hyperlipidemia Mild recurrent major depression Dyslipidemia Annual physical exam Epididymal mass Depression with anxiety Fibromyalgia GERD (gastroesophageal reflux disease) Asthma Surgical History History of testicular surgery History of esophagogastroduodenoscopy (EGD) History of left inguinal hernia repair Family History Maternal Grandfather History of lung cancer Paternal Uncle History of prostate cancer Father Asthma HTN (hypertension) Hx of CABG Mother Depression Other CVD (cardiovascular disease) Social History Housing: Apartment Alcohol intake: former Patient Tobacco Use Status: Never used Tobacco e-Cigarette/Vaping Use: Never Used Second Hand Smoke Exposure: No Advance Directives Date on File: 07/19/20 service: No Current occupational status: unemployed Cognitive needs: Yes Hearing needs: No Vision needs: No Review of Systems Const All systems reviewed & are unremarkable except as noted in HPI and below Reports no additional complaints Eyes Reports no additional complaints ENT Reports no additional complaints Card Denies dyspnea Resp Denies cough and Denies dyspnea GI Reports no additional complaints Musc Reports no additional complaints Skin/Breast Denies rash and Denies unusual bruising Neuro Reports no additional complaints Psych Reports no additional complaints Endo Reports no additional complaints Robert/Lymph Reports no additional complaints Aller/Immun Reports no additional complaints Physical Exam Const General: healthy appearing, no acute distress and well developed Orientation/consciousness: patient oriented x3 HEENT Head: Yes normocephalic and Yes atraumatic Eyes Conjunctivae: conjunctivae normal Neck Neck: Yes normal visual inspection Chest Chest palpation & inspection: normal inspection of the chest Resp Effort & Inspection: normal respiratory effort Cardio Rate: regular rate GI Inspection: Yes normal to inspection Skin General skin exam: no rashes or lesions noted Neuro General: patient oriented x3 Extrem General: No pedal edema Psych Appearance: grossly normal Affect: normal affect Results AMB Urinalysis, Automated UA Leukoctes 0 Cheli/uL Last Edit by LAYLA Lloyd on 06/28/23 09:47 UA Nitrite Negative Last Edit by LAYLA Lloyd on 06/28/23 09:47 UA Urobilinogen 0 mg/dL Last Edit by LAYLA Lloyd on 06/28/23 09:47 UA Protein 0.2 mg/dL Last Edit by Saad Kang A on 06/28/23 09:47 UA pH 6.0 Last Edit by Saad Kang A on 06/28/23 09:47 UA Blood 0 Romero/uL Last Edit by Saad Kang Karel on 06/28/23 09:47 UA Specific [place] 1.025 Last Edit by Saad Kang A on 06/28/23 09: 47 UA Ketone Negative Last Edit by Saad Kang A on 06/28/23 09:47 UA Bilirubin 0 mg/dL Last Edit by Saad Kang A on 06/28/23 09:47 UA Glucose 0 mg/dL Last Edit by Saad Kang Karel on 06/28/23 09:47 Results Reviewed Results Reviewed: Laboratory Last Values Urine pH (Auto) 6.0 06/28/23 09:37 Specific [place] (Auto) 1.025 06/28/23 09:37 Urine Protein (Auto) 0.2 mg/dL 06/28/23 09:37 Glucose (UA)(Auto) 0 mg/dL 06/28/23 09:37 Urine Ketones (Auto) Negative 06/28/23 09:37 Urine Blood (Auto) 0 Romero/uL 06/28/23 09:37 Urine Nitrite (Auto) Negative 06/28/23 09:37 Urine Bilirubin (Auto) 0 mg/dL 06/28/23 09:37 Urine Urobilinogen (Auto) 0 mg/dL 06/28/23 09:37 Leukocyte Esterase (Auto) 0 Cheli/uL 06/28/23 09:37 Date of Service: 06/20/23 EXAMINATION: CT ABDOMEN AND PELVIS WITHOUT AND WITH CONTRAST?? CLINICAL INFORMATION: Kidney and ureter disorder?? COMPARISON: 02/28/2023 abdominal ultrasound FINDINGS: TOLL COLLECTOR: Nonobstructive bowel pattern. Right hemipelvic phlebolith. LUNG BASES: Mild right middle lobe atelectasis. Nonenlarged heart. No pericardial effusion. LIVER, GALLBLADDER, AND BILIARY TREE: The liver is normal in size, shape, and attenuation. No focal hepatic lesion or biliary ductal dilatation is present. Small hepatic calcification. The gallbladder is unremarkable with no evidence of radiopaque gallstones, gallbladder wall thickening, or obvious pericholecystic inflammatory changes.?? PANCREAS: Unremarkable.?? SPLEEN: Unremarkable.?? ADRENAL GLANDS: Unremarkable.?? KIDNEYS AND URETERS: The kidneys are normal in size, shape, and attenuation. No hydronephrosis or hydroureter. Tiny left upper pole nonobstructing calculus. No correlate for 5 mm hyperechoic right lateral midpole focus seen on recent ultrasound. Mild nonspecific bilateral perinephric stranding.?? BLADDER: Decompressed.?? GASTROINTESTINAL TRACT: Unremarkable stomach. Nonobstructive bowel pattern. Unremarkable terminal ileum and appendix. No colonic pathology recognized.? ABDOMINAL WALL: No significant hernia is appreciated.?? LYMPH NODES: Normal. VASCULAR: Unremarkable. PELVIC VISCERA: Prostate calcifications. Phleboliths. OSSEUS STRUCTURES: Likely benign and femoral and left acetabular bone islands. IMPRESSION: No correlate to 5 mm hyperechoic right renal focus seen on recent ultrasound. Follow-up renal ultrasound in 6 months recommended. Tiny left upper pole nonobstructing renal calculus. Assessment & Plan Assessment & Plan (1) Right flank pain: Code(s): R10.9 - Unspecified abdominal pain (2) Gross hematuria: Code(s): R31.0 - Gross hematuria (3) Kidney stone: Code(s): N20.0 - Calculus of kidney Plan 24-hour urine collection was ordered. Encouraged the patient to consume adequate amount of fluids. Follow-up in 10 weeks. Orders: Orders AMB Urinalysis Automated 06/28/23 Z13.9 - Encounter for screening, unspecified Patient Instructions: The patient had an opportunity to ask questions regarding treatment plan. All questions were answered. Imaging, Laboratory studies and physical exam results were discussed and reviewed in detail. No major barriers to understanding were identified. The patient expressed understanding and agreement with the above treatment plan.? ? ? The patient is aware they should contact our office by phone for worsening of their current condition or the appearance of new symptoms. Compliance is encouraged with any medications and followup testing that is ordered.? ? ? It is a privilege to be allowed the opportunity to participate in the urologic care of your patient. If you have any questions or concerns regarding treatment for the above conditions please do not hesitate to contact me. The office telephone contact is [phone].? ? ? This note is constructed in part using voice recognition software. While every effort has been made to ensure accuracy regional business manager errors may have been included.? ? ? Yours sincerely,? ? ? Jayde Valencia MD? Coding Level of Care Code Est Pt Level 4 (27596) Diagnoses Right flank pain R10.9 Gross hematuria R31.0 Kidney stone N20.0
== END 2023-06-28 10:34 | disposition home or self-care (01) ==
PROVIDERS: PCP Internal Medicine; Visit Provider Urology
DX: R10.9 Unspecified abdominal pain (principal); R31.0 Gross hematuria; N20.0 Calculus of kidney
CPT/HCPCS: 99214

== ENCOUNTER → 2023-06-28 09:34 | Outpatient (BNVA) | payer MEDICARE, MEDICAID, SELFPAY | PROVIDERS: PCP Internal Medicine; Visit Provider Urology | DX: R31.0 Gross hematuria (principal); N20.0 Calculus of kidney | CPT/HCPCS: 81003; 99212 ==

== ENCOUNTER 2023-07-03 12:47 | Outpatient (AMB) | payer MEDICARE, MEDICAID, SELFPAY ==
--- NOTE | 2023-07-03 12:51 | A.OFFVIS_ITS ---
Intake Vital Signs 07/03/23 12:57 Height 5 ft 3 in Weight 200 lb BMI 35.4 BP 134/86 Blood Pressure Location Rt brachial Position Sitting Pulse 73 Pulse Source Pulse Oximeter Pulse Oximetry (%) 97 Oxygen Delivery Method Room Air Intake Visit Reasons: BILATERAL L5, S1 TFESI/06/05/23/Confirmed Intake Note: Pain today 02/07 Activity Leader Required: Yes Activity Leader Language: Physician/Allergy/Immunology Name: Jaxon #[id number] Allergies No Known Drug Allergies Allergy (Unknown, Verified 07/03/23 12:58) none seafood Allergy (Verified 07/03/23 12:58) Anaphylaxis HPI HPI Comments History of Present Illness Details Patient presents today for follow up to assess response to Bilateral L5-S1 TFESI injections on 06/05/[address] Florence. Patient reports ongoing 70% pain relief with improved mobility, functioning, sleep and better social interactions. He continues to endorse axial low back pain with extension. Patient had no pain relief with diagnostic lumbar medial branch blocks in 2019 and is not interested to repeat these injections in order to establish reproducible response to the treatment for potential Sprint peripheral nerve stimulation or RFA. Patient is content with recent injection for his radicular leg symptoms and mild relief for his lower back and will continue to monitor his symptoms for the next 2 months. Denies any fever, abdominal or groin pain, bladder or bowel incontinence or saddle anesthesia. Past Procedures: 06/05/23: Bilateral L5-S1 TFESI-70% ongo ing pain relief 04/10/23: Bilateral Therapeutic SIJ inje ctions-0% pain relief 04/04/22: Bilateral Diagnostic SIJ injec tions-100% 1-2 week pain relief, 60% pain relief for 3 months 02/24/22: Bilateral L5-S1 TFESI--75% ghada oing pain relief 11/11/19: Bilateral diagnostic L3-L4 DR L5 MBB -0% pain relief PRIOR: Patient is a pleasant 41 years old Japanese speaking only male who presents today for ongoing chronic lower back and bilateral knee pain. 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 He is currently not employed and is on permanent disability for fibromyalgia. He reports his knees are tender to touch but do not bother him as much as his back today. Patient previously was seen by Dr. Florence 2 years ago and underwent bilateral diagnostic L3-L4 DR L5 MBBs on 11/11/19 without any pain relief. An MRI of the lumbar spine was then performed on 12/05/19 that showed minimal endplate Schmorl's nodes. Very small right foraminal disc protrusion at L5-S1, decreased in size compared to prior imaging without nerve root impingement. Patient has not followed up with our office since then and today reports his back pain has worsened and is mostly axial with radiation to both of his legs posteriorly into his feet with associated tingling in his bilateral feet and all toes. He describes his pain as constant, sharp, throbbing, shooting, and radiating with intermittent weakness in his lower legs. He reports that his back pain in the back is worse when he tries to bend his back forward or backward. Patient is also under the care of aerospace quality engineer for fibromyalgia and has been taking gabapentin and baclofen with minimal relief. Patient reports that baclofen has not been effective and is asking to try another muscle relaxant. Patient has completed physical therapy over 2 years ago and a TENS unit with no improvement in his pain. He is unable to tolerate PT now due to significant pain and his current condition. Patient denies any chiropractic manipulation, acupunctures, massage, herbal medications or CBT therapy. He denies any fever, abdominal or groin pain, malaise, weight loss, bladder/bowel dysfunction or saddle anesthesia. He reports intermittent weakness. Ambulates without assistive devices. [facility] Medical History Right upper quadrant abdominal pain Left elbow pain CELESTE (generalized anxiety disorder) Mixed hyperlipidemia Mild recurrent major depression Dyslipidemia Annual physical exam Epididymal mass Depression with anxiety Fibromyalgia GERD (gastroesophageal reflux disease) Asthma Surgical History History of testicular surgery History of esophagogastroduodenoscopy (EGD) History of left inguinal hernia repair Family History Maternal Grandfather History of lung cancer Paternal Uncle History of prostate cancer Father Asthma HTN (hypertension) Hx of CABG Mother Depression Other CVD (cardiovascular disease) Social History (Reviewed 07/03/23 @ 13:02 by MARIA TERESA Scott Housing: Apartment Alcohol intake: former Patient Tobacco Use Status: Never used Tobacco e-Cigarette/Vaping Use: Never Used Second Hand Smoke Exposure: No Advance Directives Date on File: 07/19/20 service: No Current occupational status: unemployed Cognitive needs: Yes Hearing needs: No Vision needs: No Review of Systems Const All systems reviewed & are unremarkable except as noted in HPI and below Physical Exam Vital Signs: Last Vital Signs Pulse 73 07/03/23 12:57 BP 134/86 07/03/23 12:57 Pulse Ox 97 07/03/23 12:57 Oxygen Delivery Method Room Air 07/03/23 12:57 BMI result Body Mass Index 35.4 General: Appears afebrile. Alert and oriented. Mood and affect appropriate. Follows and participates in conversation appropriately. Respiratory effort is unlabored. No cough. Able to transition from sit to stand unassisted. Lumbar extension reproduces mild to moderate pain. Lumbar flexion does not reproduce pain. Facet loading bilaterally. Kehinde's test reproduces low back and lateral hip pain bilaterally. Pelvic compression positive bilaterally, left >right. Results Reviewed Results Reviewed: XR LUMBAR SPINE. BILATERAL KNEE 11/23/21 CLINICAL INFORMATION: Low back pain. COMPARISON: MRI lumbar spine 12/05/2019. TECHNIQUE: Lumbar spine 3 views. Bilateral knee 3 views each. FINDINGS: Lumbar spine: There is normal lumbar lordosis. The vertebral heights and alignment are normal. The disc heights are preserved. There is no visible acute fracture, dislocation or lytic process. The SI joints are symmetrical and normal. The paravertebral soft tissues are normal. Left knee: There is mild loss of medial and lateral compartment joint space. The patellofemoral compartment joint space is preserved. No visible acute fracture, dislocation or subluxation seen. Right knee: There is mild loss of medial and lateral compartment joint space without bony erosive changes. No loose bodies or joint effusion seen. IMPRESSION: Unremarkable lumbar spine exam. Mild degenerative changes medial and lateral compartment bilateral knees. No acute fracture or loose body seen. MR LUMBAR SPINE WITHOUT CONTRAST 12/05/2019 CLINICAL INFORMATION: Low back pain. Numbness in legs. ? COMPARISON: MRI dated 05/29/2016.? FINDINGS: Small endplate Schmorl's nodes present at various levels. The discs are fairly well hydrated. No significant disc space narrowing evident. The distal cord, conus tip, and cauda equina nerve roots are normal. There is no central canal stenosis or significant foraminal narrowing. A very small right foraminal disc protrusion abuts the right L5 nerve root without compression deformity, decre ased in size when compared to the prior study. No additional disc protrusions are seen. The paraspinal soft tissues are normal. ? IMPRESSION: Minimal endplate Schmorl's nodes. Very small right foraminal disc protrusion at L5-S1, decreased in size compared to prior imaging without nerve root impingement.? Assessment & Plan Assessment & Plan (1) Lumbosacral radiculopathy: Code(s): M54.17 - Radiculopathy, lumbosacral region (2) Sacroiliac joint dysfunction of both sides: Code(s): M53.3 - Sacrococcygeal disorders, not elsewhere classified (3) Lumbar spondylosis: Code(s): M47.816 - Spondylosis without myelopathy or radiculopathy, lumbar region Plan Patient is status post Bilateral L5-S1 TFESI with ongoing 70% pain relief and improved functioning, mobility, sleep, and improved social interactions. Patient is content with recent injection for his radicular leg symptoms and mild relief for his lower back and will continue to monitor his symptoms for the next 2 mon ths. Will consider SIJ injections for continued low back pain as diagnostic SIJ provided him significant pain relief and lumbar diagnostic MBB did not. All questions and concerns have been answered and patient agreed with the plan. Follow-up as needed. Coding Level of Care Code Est Pt Level 3 (68163) Diagnoses Lumbosacral radiculopathy M54.17 Sacroiliac joint dysfunction of both sides M53.3 Lumbar spondylosis M47.816
[2023-07-03 12:57] VITALS: BP 134/86; PULSE 73; O2SAT 97; BMI 35.4
== END 2023-07-03 13:05 | disposition home or self-care (01) ==
PROVIDERS: PCP Internal Medicine; Visit Provider Nurse Practitioner Family
DX: M54.17 Radiculopathy, lumbosacral region (principal); M53.3 Sacrococcygeal disorders, not elsewhere classified; M47.816 Spondylosis without myelopathy or radiculopathy, lumbar region
CPT/HCPCS: 99213

== ENCOUNTER → 2023-07-03 12:47 | Outpatient (BNVA) | payer MEDICARE, MEDICAID, SELFPAY | PROVIDERS: PCP Internal Medicine; Visit Provider Nurse Practitioner Family | DX: M54.17 Radiculopathy, lumbosacral region (principal); M53.3 Sacrococcygeal disorders, not elsewhere classified; M47.816 Spondylosis without myelopathy or radiculopathy, lumbar region; Z98.890 Other specified postprocedural states | CPT/HCPCS: 99212 ==

== ENCOUNTER 2023-08-02 10:21 | Outpatient (AMB) | payer MEDICARE, MEDICAID, SELFPAY ==
--- NOTE | 2023-08-02 10:26 | MHC.OFFVIS ---
Intake Vital Signs 08/02/23 10:31 Height 5 ft 3 in Weight 198 lb 6.656 oz BMI 35.1 Intake Visit Reasons: 4 week follow up Intake Note: Patient presents to in office visit today in follow up of Xrays and constipation. CC: Patient reports that he d/c the Linzess because he felt he was always having to go to the bathroom. He is only using the Senna and states he is doing better from constipation. Patient continues to c/o RUQ abdominal pain, generalized abdominal pain, mid back pain, and nausea. 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 He has a new problem, onset of about 7 months of right flank pain that started suddenly and is described as stabbing that will worsen with some bending or twisting and will last sometimes for a couple of days. This happens about 2-3 times a month. It has not r/t eating or moving his bowels. Once he had the pain and had some in his back and some hematuria I think I passed a kidney stone. This is different form the pain he is describing. The pain does not move from one spot. He had an US with his PCP that did not uncover a reason, but he had sensitivity in this spot with US probe. He only takes 1 senna a night, and he feels he is having incomplete evacuation. Will start Linzess to see if this is bowel spasm at 72mcg. He has bentyl 10mg available to him, he is unsure how many times a day he is taking this as the meds are prepared for me. I want him to try to take 2 caps if he has the pain. BUT on PE he is very sensitive at T-8-10 and has CVA tenderness that radiates to the area of pain. Also, the painful area is actually on the ribcage with compression/palpation. I will add a throacic xr, he has known lumbar spondyosis/DJD. ROV 4 weeks. (2) Constipation: Code(s): K59.00 - Constipation, unspecified (3) Right flank pain: Code(s): R10.9 - Unspecified abdominal pain (4) Back pain: Code(s): M54.9 - Dorsalgia, unspecified Orders: Orders XR thoracic spine 2V Today M54.9 - Dorsalgia, unspecified, R10. 9 - Unspecified ab dominal pain Medications: New linaclotide (Linze ss) 72 mcg PO QAM 30 caps 3RF K59.00 - Constipat ion, unspecified, R10.9 - Unspecifie d abdominal pain Refilled famotidine (Pepcid ) D/c 20mg dose as not controllin g sx 40 mg PO BID 30 d ays 60 tabs 6RF K21.9 - Gastro-eso phageal reflux dis ease without esoph agitis dicyclomine 10 - 20 mg (1 - 2 x 10 mg) PO QID 30 days 240 caps 5RF K62.89 - Other spe cified diseases of anus and rectum X-RAY OF THORACIC SPINE 06/20/23 FINDINGS: Mild dextroscoliosis of the thoracic spine. Mild multilevel degenerative changes in the thoracic spine. Thoracic vertebral body heights are preserved. XR/XR thoracic spine 2V IMPRESSION: Mild multilevel degenerative changes in the thoracic spine.. TODAY'S VISIT Haitian #Jennifer Live He is not using the LInzess 72, because even at the lowest does it was causing too frequent stooling and tenesmus. He is doing better with the senna. . I explained that I have not found any GI reason for the pain in his right flank so I think that this is probably radicular pain. The thoracic spine x-ray does show multilevel degenerative disc disease with so I think physical therapy and conservative treatments through his primary care provider would best served to cure this particular problem.. . He continues on his famotidine and his dicyclomine as needed. Return office visit in 6 months [facility] Medical History Right upper quadrant abdominal pain Left elbow pain CELESTE (generalized anxiety disorder) Mixed hyperlipidemia Mild recurrent major depression Dyslipidemia Annual physical exam Epididymal mass Depression with anxiety Fibromyalgia GERD (gastroesophageal reflux disease) Asthma Surgical History History of testicular surgery History of esophagogastroduodenoscopy (EGD) History of left inguinal hernia repair Family History Maternal Grandfather History of lung cancer Paternal Uncle History of prostate cancer Father Asthma HTN (hypertension) Hx of CABG Mother Depression Other CVD (cardiovascular disease) Social History Housing: Apartment Alcohol intake: former Patient Tobacco Use Status: Never used Tobacco e-Cigarette/Vaping Use: Never Used Second Hand Smoke Exposure: No Advance Directives Date on File: 07/19/20 service: No Current occupational status: unemployed Cognitive needs: Yes Hearing needs: No Vision needs: No Review of Systems Const Denies fatigue, Denies fever(s), Denies night sweats, Denies poor appetite and Denies weight loss ENT Reports Normal hearing present, Denies dental pain, Denies dysphagia, Denies hearing loss, Denies mouth pain, Denies odynophagia, Denies throat swelling, Denies tongue swelling and Reports other (Dentition adequate) Card Reports no additional complaints Resp Reports no additional complaints GI Denies abdominal pain, Denies melena, Denies bloating, Denies hematochezia, Denies constipation, Reports GI cramping, Denies dysphagia, Denies excessive flatus, Denies early satiety, Reports heartburn, Denies diarrhea, Denies nausea, Denies odynophagia, Denies vomiting and Denies hematemesis Skin/Breast Denies pruritus, Denies lesions, Denies rash and Denies jaundice Neuro Reports Normal hearing present and Denies Abnormal speech present Endo Denies fatigue Aller/Immun Denies throat swelling and Denies tongue swelling Physical Exam Vital Signs: BMI result Body Mass Index 35.1 Const General: cooperative, no acute distress, well developed and well groomed Nutritional Appearance: average body habitus and well nourished Orientation/consciousness: oriented to person, oriented to place and oriented to time Limitations: language barrier HEENT Head: Yes normocephalic and Yes atraumatic Eyes General: appearance normal, both eyes and all related structures Pupils: Equal, round and reactive pupils present Neck Neck: Yes normal visual inspection and Yes no lymphadenopathy Thyroid: Thyroid normal Resp Effort & Inspection: normal respiratory effort and able to speak in complete sentences Auscultation: clear to auscultation bilaterally Cardio Rate: regular rate Rhythm: regular rhythm Heart sounds: Normal, physiologic split S2 sound present Peripheral pulses: radial pulses present and posterior tibial pulses present GI Inspection: No distended and No Abdominal panniculus present Palpation (GI): Soft to palpation, nontender, no guarding, not rigid and No hepatosplenomegaly present Percussion: Yes normal to percussion Auscultation: normal bowel sounds Rectal Exam - Male: Yes deferred Skin General skin exam: no rashes or lesions noted, turgor normal, skin not dry, no jaundice, No spider nevi and no striae Rashes: no rashes Nails: normal Neuro General: oriented to person, oriented to place and oriented to time Cranial nerves: Yes Equal, round and reactive pupils present and Yes Normal hearing present Speech: No Abnormal speech present Extrem General: Yes normal to inspection, No clubbing, No cyanosis and No edema Psych Appearance: grossly normal and well kempt Mental Status: mental status grossly normal Speech and movement: Normal speech and movement present Affect: normal affect Attitude: cooperative Thought process: Normal thought process present and not confabulating Thought content: Normal thought content present Insight: Limited insight present (Psych) Judgement: Limited judgement present (Psych) Assessment & Plan Assessment & Plan (1) GERD (gastroesophageal reflux disease): Code(s): K21.9 - Gastro-esophageal reflux disease without esophagitis Qualifiers: Esophagitis presence: esophagitis presence not specified Qualified Code(s): K21.9 - Gastro-esophageal reflux disease without esophagitis Plan: Haitian #Jennifer Live He is not using the LInzess 72, because even at the lowest does it was causing too frequent stooling and tenesmus. He is doing better with the senna. . I explained that I have not found any GI reason for the pain in his right flank so I think that this is probably radicular pain. The thoracic spine x-ray does show multilevel degenerative disc disease with so I think physical therapy and conservative treatments through his primary care provider would best served to cure this particular problem.. He continues on his famotidine and his dicyclomine as needed. Return office visit in 6 months (2) Abdominal bloating: Code(s): R14.0 - Abdominal distension (gaseous) (3) Constipation: Code(s): K59.00 - Constipation, unspecified Coding Level of Care Code Est Pt Level 3 (92596) Diagnoses Gastroesophageal reflux disease, unspecified whether esophagitis present K21.9 Esophagitis presence: esophagitis presence not specified Abdominal bloating R14.0 Constipation K59.00
[2023-08-02 10:31] VITALS: BMI 35.1
== END 2023-08-02 10:51 | disposition home or self-care (01) ==
PROVIDERS: PCP Internal Medicine; Visit Provider Nurse Practitioner
DX: K21.9 Gastro-esophageal reflux disease without esophagitis (principal); R14.0 Abdominal distension (gaseous); K59.00 Constipation, unspecified
CPT/HCPCS: 99213

== ENCOUNTER → 2023-08-02 10:21 | Outpatient (BNVA) | payer MEDICARE, MEDICAID, SELFPAY | PROVIDERS: PCP Internal Medicine; Visit Provider Nurse Practitioner | DX: K21.9 Gastro-esophageal reflux disease without esophagitis (principal); K59.00 Constipation, unspecified; R14.0 Abdominal distension (gaseous) | CPT/HCPCS: 99212 ==

== ENCOUNTER 2023-08-29 08:38 | Outpatient (AMB) | payer MEDICARE, MEDICAID, SELFPAY ==
[2023-08-29 09:09] VITALS: BP 120/86; PULSE 60; O2SAT 96; BMI 35.6
--- NOTE | 2023-08-29 09:09 | A.OFFVIS_ITS ---
Intake Vital Signs 08/29/23 09:09 Height 5 ft 3 in Weight 201 lb BMI 35.6 BP 120/86 Blood Pressure Location Lt brachial Position Sitting Pulse 60 Pulse Source Pulse Oximeter Pulse Oximetry (%) 96 Oxygen Delivery Method Room Air Intake Visit Reasons: SAWV Intake Note: Patient here for a subsequent annual wellness visit Operating Manager Required: Yes Operating Manager Language: Norwegian Accompanied by: Self / Same As Patient Allergies No Known Drug Allergies Allergy (Unknown, Verified 08/29/23 09:23) none seafood Allergy (Verified 08/29/23 09:23) Anaphylaxis Medication List - Last Reconciled 08/29/23 by HANNAH Mancera aripiprazole 5 mg PO DAILY atorvastatin 80 mg PO DAILY 90 days carbidopa-levodopa 25-100 mg 1 tab PO DAILY citalopram 10 mg PO DAILY clonazepam 1 mg PO BEDTIME PRN clonazepam 0.5 mg PO DAILY PRN dicyclomine 10 - 20 mg (1 - 2 x 10 mg) PO QID 30 days famotidine (Pepcid) 40 mg PO BID 30 days gabapentin 800 mg PO BID 30 days linaclotide (Linzess) 72 mcg PO QAM meloxicam 15 mg PO DAILY PRN 30 days methocarbamol 750 mg PO BID PRN 30 days sennosides (senna) 17.2 mg PO BEDTIME trazodone 100 - 150 mg PO BEDTIME PRN Ventolin HFA 90 mcg/actuation (albuterol sulfate) 2 puffs inhalation Q6H PRN 30 days NS HPI SAWV HPI Details Patient is a 43-year-old male who presents today for subsequent [facility] visit. Patient of Dr. Vega. Patient is up-to-date with his health preventative screenings. Declined flu vaccine. [place] of care was reviewed with the patient and he was provided with a screenin g schedule. End of life planning was discussed with the patient and he was provided with healthcare proxy and MOLST form. 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 [facility] Medical History Right upper quadrant abdominal pain Left elbow pain CELESTE (generalized anxiety disorder) Mixed hyperlipidemia Mild recurrent major depression Dyslipidemia Annual physical exam Epididymal mass Depression with anxiety Fibromyalgia GERD (gastroesophageal reflux disease) Asthma Surgical History History of testicular surgery History of esophagogastroduodenoscopy (EGD) History of left inguinal hernia repair Family History Maternal Grandfather History of lung cancer Paternal Uncle History of prostate cancer Father Asthma HTN (hypertension) Hx of CABG Mother Depression Other CVD (cardiovascular disease) Social History Housing: Apartment Alcohol intake: former Patient Tobacco Use Status: Never used Tobacco e-Cigarette/Vaping Use: Never Used Second Hand Smoke Exposure: No Advance Directives Date on File: 07/19/20 service: No Current occupational status: unemployed Cognitive needs: Yes Hearing needs: No Vision needs: No Questionnaire Medicare Wellness Checkup What [age] your [age]?: 65-69 (43) What gender do you identify with?: male During the past 4 weeks, how much have you been bothered by emotional problems such as feeling anxious, depressed, irritable, sad or downhearted, and blue?: not at all During the past 4 weeks, has your physical & emotional health limited your social activities with family, friends, neighbors, or groups?: not at all During the past 4 weeks, how much bodily pain have you generally had?: severe pain During the past 4 weeks, was someone available to help you if you needed & wanted help?: yes, as much as I wanted During the past 4 weeks, what was the hardest physical activity you could do for at least 2 minutes?: very light Can you get to places out of walking distance without help? (For eg., can you travel alone on buses, taxis or drive your car?): Yes Can you go shopping for groceries or clothes without someone's help?: Yes Can you prepare your own meals?: Yes Can you do your housework without help?: No Because of any health problems, do you need the help of another person with your personal care needs such as eating, bathing, dressing or getting around the house?: Yes Can you handle your own money without help?: Yes During the past 4 weeks, how would you rate your health in general?: fair During the past 4 weeks how have things been going for you?: good & bad parts about equal Are you having difficulties driving your car?: not applicable, I don't use a car Do you always fasten your seat belt when you are in a car?: yes, usually During past 4 weeks, have you been bothered by the following: never: Sexual problems?, Trouble eating well?, Teeth or denture problems? and Problems using the telephone?, sometimes: Falling or dizzy when standing up and always: Tiredness or fatigue? Have you fallen 2 or more times in the past year?: No Are you afraid of falling?: Yes Are you a smoker?: no During the past 4 weeks, how many drinks of wine, beer, or other alcoholic beverages did you have?: no alcohol at all Do you exercise for about 20 minutes 3 or more times a week?: no, I usually do not exercise this much Have you been given information to help with the following?: yes: Hazards in your house that might hurt you? and yes: Keeping track of your medications? How often do you have trouble taking medicines the way you have been told to take them?: I always take medicine as prescribed How confident are you that you can control & manage most of your health problems?: very confident What is your race?: or origin or descent Mini Mental State Exam (MMSE) Orientation What is the (year) (season) (date) (day) (month)?: year, season, date, day and month Score Score: 5 Activity of Daily Living Bathing - sponge bath, tub bath or shower: receives help in bathing only one body part (such as back or leg) Dressing - getting clothes from closets & drawers, including inner/outer garments & fasteners.: gets clothes & gets dressed without help, except for help tying shoes Toileting - going to the 'toilet room' for urine/bowel elimination & cleaning self/arranging clothes: receives help going to toilet room, cleaning self or arranging clothes Transfer: moves in & out of bed and chair without help (may use support object) Continence: controls urination/bowel movements completely by self Feeding: feeds self without help Total Score: 0 Information obtained from: patient Using telephone: independent Traveling: needs assistance Shopping: needs assistance Preparing meals: needs assistance Housework: needs assistance Taking medicine: needs assistance Managing money: independent PHQ-9 Over the last 2 weeks, how often have you been bothered by any of the following problems? 1. Little interest or pleasure in doing things: not at all 2. Feeling down, depressed, or hopeless: not at all 3. Trouble falling or staying asleep, or sleeping too much: not at all 4. Feeling tired or having little energy: not at all 5. Poor appetite or overeating: not at all 6. Feeling bad about yourself - or that you are a failure or have let yourself or your family down: not at all 7. Trouble concentrating on things, such as reading the newspaper or watching television: not at all 8. Moving or speaking so slowly that other people could have noticed. Or the opposite - being so fidgety or restless that you have been moving around a lot more than usual: not at all 9. Thoughts that you would be better off or of hurting yourself in some way: not at all Total score: 0 Depression Screening Interpretation: Negative Depression Screening Done: Yes 56493 - PHQ-9 Billing: Yes Source: Developed by Drs. Gildardo Flores, Tequila Buitrago, Yo Proctor and colleagues, with an educational kevin from [employer]. CELESTE-7 AMB Questionnaire CELESTE-7 Date CELESTE - 7 assessed: 08/29/23 Feeling nervous, anxious, or on edge: 1 = Several days Not being able to stop or control worryin = Several days Worrying too much about different things: 2 = More than half the days Trouble relaxin = Several days Being so restless that it is hard to sit still: 1 = Several days Becoming easily annoyed or irritable: 1 = Several days Feeling afraid as if something awful might happen: 1 = Several days Total CELESTE-7 score (0-4 normal; 5-9 mild; 10-14 moderate; 15-21 severe): 8 Source: Developed by Drs. Gildardo Flores, Tequila Buitrago, Yo Proctor and colleagues, with an educational kevin from [employer]. CELESTE-7 Assessment Billing CELESTE-7 Assessment Tool: CELESTE-7 Assessment 25271 Physical Exam Vital Signs: Last Vital Signs Pulse 60 08/29/23 09:09 BP 120/86 08/29/23 09:09 Pulse Ox 96 08/29/23 09:09 Oxygen Delivery Method Room Air 08/29/23 09:09 BMI result Body Mass Index 35.6 Const General: cooperative and no acute distress Orientation/consciousness: patient oriented x3 HEENT Other: Whisper test: pass Neuro Other: Balance: Normal Get up and walk: able to Romberg: negative Tandem gait: able to General: patient oriented x3 Assessment & Plan Assessment & Plan (1) Adult general medical exam: Code(s): Z00.00 - Encounter for general adult medical examination without abnormal findings (2) CELESTE (generalized anxiety disorder): Code(s): F41.1 - Generalized anxiety disorder Plan: Continue to follow-up with therapist and psychiatrist - continue current treatment as prescribed by mental health specialist (3) Mixed hyperlipidemia: Code(s): E78.2 - Mixed hyperlipidemia Plan: Reinforced low-cholesterol diet Atorvastatin 80 mg daily (4) Mild recurrent major depression: Code(s): F33.0 - Major depressive disorder, recurrent, mild Plan: Continue current treatment Continue to follow-up with psychiatrist and therapist (5) GERD (gastroesophageal reflux disease): Code(s): K21.9 - Gastro-esophageal reflux disease without esophagitis Qualifiers: Esophagitis presence: esophagitis presence not specified Qualified Code(s): K21.9 - Gastro-esophageal reflux disease without esophagitis Plan: Pepcid 40 mg 2 times a day Encouraged to avoid GERD trigger foods Continue to follow-up with [facility] (6) Fibromyalgia: Code(s): M79.7 - Fibromyalgia Plan: Gabapentin 800 mg 2 times a day Continue to follow-up with [facility] (7) Asthma: Code(s): J45.909 - Unspecified asthma, uncomplicated Plan: Stable Continue albuterol p.r.n. (8) Kidney stone: Code(s): N20.0 - Calculus of kidney Plan: Continue to follow-up with [facility] (9) Obesity (BMI 30-39.9): Code(s): E66.9 - Obesity, unspecified Plan: Healthy food choices and exercise as tolerated Quality Reporting (2019) Depression/Bipolar (159/160/161/177) PHQ-9: Total score: 0 Coding Level of Care Code Medicare Subsequent (G0439) Diagnoses Adult general medical exam Z00.00 CELESTE (generalized anxiety disorder) F41.1 Mixed hyperlipidemia E78.2 Mild recurrent major depression F33.0 Gastroesophageal reflux disease, unspecified whether esophagitis present K21.9 Esophagitis presence: esophagitis presence not specified Fibromyalgia M79.7 Asthma J45.909 Kidney stone N20.0 Obesity (BMI 30-39.9) E66.9 CPT Codes Advance Care Planning - Time spent: 1-15 minutes, not on file ([id number]) Additional Codes CELESTE-7 Assessment Billing - CELESTE-7 Assessment Tool: CELESTE-7 Assessment [id number] ([id number]) Advance Care Planning Date of discussion: 08/29/23 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
== END 2023-08-29 09:41 | disposition home or self-care (01) ==
PROVIDERS: Visit Provider Nurse Practitioner Family
DX: Z00.00 Encounter for general adult medical examination without abnormal findings (principal); F41.1 Generalized anxiety disorder; E78.2 Mixed hyperlipidemia; E66.9 Obesity, unspecified; F33.0 Major depressive disorder, recurrent, mild; Z68.35 Body mass index [BMI] 35.0-35.9, adult; K21.9 Gastro-esophageal reflux disease without esophagitis; M79.7 Fibromyalgia; J45.909 Unspecified asthma, uncomplicated; N20.0 Calculus of kidney
CPT/HCPCS: 1124F; G0439

== ENCOUNTER 2023-09-03 09:35 | Outpatient (AMB) | payer MEDICARE, MEDICAID, SELFPAY ==
--- NOTE | 2023-09-03 09:43 | A.OFFVIS_ITS ---
Intake Intake Visit Reasons: 24hr urine/follow up Intake Note: Patient presents today for a follow-up on Gross Hematuria: CT Scan Completed on 06/20/2023: Meds- None Allergies to Antibiotic- No Known Allergies Blood Thinner- None Quality Control Operator Required: No Accompanied by: Self / Same As Patient Allergies No Known Drug Allergies Allergy (Unknown, Verified 08/29/23 09:23) none seafood Allergy (Verified 08/29/23 09:23) Anaphylaxis HPI HPI Comments History of Present Illness Details Guru is a 43-year-old male who presents today to the office for a follow-up. 09/03/2023? He was last seen by me on 06/28/2023 for gross hematuria. He has had work up which was notable for left kidney stone. Patient states that he has not completed the 24-hour collection test. He mentions having testicular pain and states that he has an upcoming surgery with Dr. Gregory. I have discussed at length diet modification to decrease risk of forming more kidney stones. I have discussed low oxalate diet and specific foods to avoid including certain green leafy vegetables, chocolate, nuts, tea, beets, rubarb; low sodium, decreased use of animal protein and the importance of hydration drinking up to 2-2.5 liters of fluids and use of adding lemon to water to increase citrate in the diet. Review of charts: Last visit: 06/28/2023? He is followed today for gross hematuria. The patient is a Vietnamese speaking male. Certified foreign language interpreter was present during the visit. I reviewed the CT urogram results from 06/20/2023 revealed Tiny left upper pole nonobstructing renal calculus. There was no correlation to 5 mm hyperechoic right renal focus seen on recent ultrasound. Abdominal US?02/28/23-- 5 mm hyperechoic focus on the lateral surface of the kidney. Etiology is unclear. May represent a small angiomyolipoma, non obs tructive calculus or potentially a tiny solid lesion. 09/03/2023: Plan: Scrotal US was ordered . Follow-up with me in one year with renal US prior. [facility] Medical History Right upper quadrant abdominal pain Left elbow pain CELESTE (generalized anxiety disorder) Mixed hyperlipidemia Mild recurrent major depression Dyslipidemia Annual physical exam Epididymal mass Depression with anxiety Fibromyalgia GERD (gastroesophageal reflux disease) Asthma Surgical History History of testicular surgery History of esophagogastroduodenoscopy (EGD) History of left inguinal hernia repair Family History Maternal Grandfather History of lung cancer Paternal Uncle History of prostate cancer Father Asthma HTN (hypertension) Hx of CABG Mother Depression Other CVD (cardiovascular disease) Social History Housing: Apartment Alcohol intake: former Patient Tobacco Use Status: Never used Tobacco e-Cigarette/Vaping Use: Never Used Second Hand Smoke Exposure: No Advance Directives Date on File: 07/19/20 service: No Current occupational status: unemployed Cognitive needs: Yes Hearing needs: No Vision needs: No Review of Systems Const All systems reviewed & are unremarkable except as noted in HPI and below Reports no additional complaints Eyes Reports no additional complaints ENT Reports no additional complaints Card Denies dyspnea Resp Denies cough and Denies dyspnea GI Reports no additional complaints Musc Reports no additional complaints Skin/Breast Denies rash and Denies unusual bruising Neuro Reports no additional complaints Psych Reports no additional complaints Endo Reports no additional complaints Robert/Lymph Reports no additional complaints Aller/Immun Reports no additional complaints Assessment & Plan Assessment & Plan (1) Testicular pain: Code(s): N50.819 - Testicular pain, unspecified (2) Kidney stone: Code(s): N20.0 - Calculus of kidney Plan Scrotal US was ordered, and the patient will FU with Dr. Gregory regarding testicular pain, pt states he had surgery for similar problem with Dr. Gregory in the past. Follow-up with me in one year with renal US prior, monitor kidney stones. Orders: Orders US renal BI 10 Months N20.0 - Calculus of kidney US scrotum 1 Month N50.819 - Testicular pain, unspecified Patient Instructions: The patient had an opportunity to ask questions regarding treatment plan. All questions were answered. Imaging, Laboratory studies and physical exam results were discussed and reviewed in detail. No major barriers to understanding were identified. The patient expressed understanding and agreement with the above treatment plan. The patient is aware they should contact our office by phone for worsening of their current condition or the appearance of new symptoms. Compliance is encour aged with any medications and followup testing that is ordered. It is a privilege to be allowed the opportunity to participate in the urologic care of your patient. If you have any questions or concerns regarding treatment for the above conditions please do not hesitate to contact me. The office telephone contact is [phone]. This note is constructed in part using voice recognition software. While every effort has been made to ensure accuracy retail financial analyst errors may have been included. Yours sincerely, Jayde Valencia MD Coding Level of Care Code Est Pt Level 4 (91110) Diagnoses Testicular pain N50.819 Kidney stone N20.0
== END 2023-09-03 10:16 | disposition home or self-care (01) ==
PROVIDERS: PCP Internal Medicine; Visit Provider Urology
DX: N50.819 Testicular pain, unspecified (principal); N20.0 Calculus of kidney
CPT/HCPCS: 99214

== ENCOUNTER → 2023-09-03 09:35 | Outpatient (BNVA) | payer MEDICARE, MEDICAID, SELFPAY | PROVIDERS: PCP Internal Medicine; Visit Provider Urology | DX: N50.819 Testicular pain, unspecified (principal); N20.0 Calculus of kidney | CPT/HCPCS: 99212 ==

== ENCOUNTER 2023-10-04 14:14 | Outpatient (REF) | payer MEDICARE, MEDICAID, SELFPAY | END 2023-10-04 14:15 | disposition home or self-care (01) | LOC: HO.US 14:14 | PROVIDERS: PCP Internal Medicine; Visit Provider Urology | DX: N50.819 Testicular pain, unspecified (principal) | CPT/HCPCS: 76870 ==

== ENCOUNTER 2023-11-02 08:47 | Outpatient (AMB) | payer MEDICARE, MEDICAID, SELFPAY ==
--- NOTE | 2023-11-02 09:27 | MHC.OFFVIS ---
Intake Intake Visit Reasons: follow up/testicular pain Intake Note: Patient presents today for a follow-up on right testicular pain Meds- None Allergies to Antibiotic- No Known Allergies Blood Thinner- None Patient Symptoms: Patient stated he has right testicular pain. 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 He is a patient of Dr. Vega. He is seen for the following urologic conditions - spermatocele - erectile dysfunction Greenlandic translation provided by qualified medical insurance claims processor Had spermatocele repair in October 2020 Presents with pain on right side Imaging normal On exam has thickening of epididymal head and tail Also mentions erectile dysfunction Repeat tadalafil 5 mg daily Spermatocele Repair October 2020 left side Erectile dysfunction Did respond to daily 5 mg PFSH Medical History Right upper quadrant abdominal pain Left elbow pain CELESTE (generalized anxiety disorder) Mixed hyperlipidemia Mild recurrent major depression Dyslipidemia Annual physical exam Epididymal mass Depression with anxiety Fibromyalgia GERD (gastroesophageal reflux disease) Asthma Surgical History History of testicular surgery History of esophagogastroduodenoscopy (EGD) History of left inguinal hernia repair Family History Maternal Grandfather History of lung cancer Paternal Uncle History of prostate cancer Father Asthma HTN (hypertension) Hx of CABG Mother Depression Other CVD (cardiovascular disease) Social History Housing: Apartment Alcohol intake: former Patient Tobacco Use Status: Never used Tobacco e-Cigarette/Vaping Use: Never Used Second Hand Smoke Exposure: No Advance Directives Date on File: 07/19/20 service: No Current occupational status: unemployed Cognitive needs: Yes Hearing needs: No Vision needs: No Review of Systems Const Denies chills and Denies fever(s) Card Reports no additional complaints and Denies syncope Resp Denies cough GI Denies abdominal pain and Denies heartburn Reports as per HPI and Denies change in libido Neuro Denies syncope Psych Denies change in libido Endo Denies change in libido Physical Exam Const General: cooperative, healthy appearing, comfortable and no acute distress Orientation/consciousness: patient oriented x3 HEENT Face and sinus: Yes normal facial exam Mouth: moist mucous membranes Neck Neck: Yes normal visual inspection, Yes full ROM and Yes trachea midline Chest Chest palpation & inspection: normal inspection of the chest Resp Effort & Inspection: normal respiratory effort, able to speak in complete sentences and no respiratory distress GI Inspection: Yes normal to inspection Back/Spine/Pelvis Cervical Spine: normal cervical lordosis Thoracic/Lumbar Spine: thoracic and lumbar spine normal to inspection Skin General skin exam: no rashes or lesions noted Neuro General: patient oriented x3, gait normal, tone normal and moves all extremities Extrem General: Yes normal to inspection and Yes capillary refill normal Results AMB Urinalysis, Automated UA Leukoctes 0 Cheli/uL Last Edit by Rocío Clarke CMA on 11/02/23 09:31 UA Nitrite Negative Last Edit by Rocío Clarke CMA on 11/02/23 09:31 UA Urobilinogen 0.2 mg/dL Last Edit by Rocío Clarke CMA on 11/02/23 09:31 UA Protein 0 mg/dL Last Edit by Rocío Clarke CMA on 11/02/23 09:31 UA pH 6.0 Last Edit by Rocío Clarke CMA on 11/02/23 09:31 UA Blood 0 Romero/uL Last Edit by Rocío Clarke CMA on 11/02/23 09:31 UA Specific [place] 1.030 Last Edit by Rocío Clarke CMA on 11/02/23 09:31 UA Ketone Negative Last Edit by Rocío Clarke CMA on 11/02/23 09:31 UA Bilirubin 0 mg/dL Last Edit by Rocío Clarke CMA on 11/02/23 09:31 UA Glucose 0 mg/dL Last Edit by Rocío Clarke CMA on 11/02/23 09:31 Results Reviewed Results Reviewed: Laboratory Last Values Urine pH (Auto) 6.0 11/02/23 09:30 Specific [place] (Auto) 1.030 11/02/23 09:30 Urine Protein (Auto) 0 mg/dL 11/02/23 09:30 Glucose (UA)(Auto) 0 mg/dL 11/02/23 09:30 Urine Ketones (Auto) Negative 11/02/23 09:30 Urine Blood (Auto) 0 Romero/uL 11/02/23 09:30 Urine Nitrite (Auto) Negative 11/02/23 09:30 Urine Bilirubin (Auto) 0 mg/dL 11/02/23 09:30 Urine Urobilinogen (Auto) 0.2 mg/dL 11/02/23 09:30 Leukocyte Esterase (Auto) 0 Cheli/uL 11/02/23 09:30 Assessment & Plan Assessment & Plan (1) Erectile dysfunction: Code(s): N52.9 - Male erectile dysfunction, unspecified (2) Testicular pain: Code(s): N50.819 - Testicular pain, unspecified Plan Three-month follow-up tele Orders: Orders AMB Urinalysis Automated Today R33.9 - Retention of urine, unspecified Medications: New tadalafil 5 mg PO DAILY 90 tabs 0RF sexual activity 90 days N52.9 - Male erectile dysfunction, unspecified Patient Instructions: Imaging studies, laboratory and physical exam results were discussed and reviewed in detail. No major barriers to patient understanding were identified. An opportunity to ask questions regarding the treatment plan was provided. All questions were answered. The patient expressed understanding and agreement with the above treatment plan. The patient is aware they should contact our office by phone for worsening of their current condition or the appearance of new urologic symptoms. Compliance is encouraged with any medications and followup testing that is ordered. It is a privilege to participate in the urologic care of your patient. If you have any questions or concerns regarding treatment for the above conditions, or other urologic issues, please do not hesitate to contact me. The office telephone contact is [phone]. This note is constructed using voice recognition software. While every effort has been made to ensure accuracy construction management instructor errors may have been included. Yours sincerely, Dr Harlan Gregory MD, [facility] Urology Providers of Expert, Compassionate Care for the Genitourinary System Coding Level of Care Code Est Pt Level 4 (88141) Diagnoses Erectile dysfunction N52.9 Testicular pain N50.819
== END 2023-11-02 09:48 | disposition home or self-care (01) ==
PROVIDERS: PCP Internal Medicine; Visit Provider Urology
DX: N50.819 Testicular pain, unspecified (principal); N52.9 Male erectile dysfunction, unspecified; R33.9 Retention of urine, unspecified
CPT/HCPCS: 99214

== ENCOUNTER → 2023-11-02 08:47 | Outpatient (BNVA) | payer MEDICARE, MEDICAID, SELFPAY | PROVIDERS: PCP Internal Medicine; Visit Provider Urology | DX: N52.9 Male erectile dysfunction, unspecified (principal); N50.819 Testicular pain, unspecified | CPT/HCPCS: 81003; 99212 ==

== ENCOUNTER 2023-11-06 09:45 | Outpatient (AMB) | payer MEDICARE, MEDICAID, SELFPAY ==
[2023-11-06 09:47] VITALS: BP 121/67; PULSE 59; BMI 35.1
--- NOTE | 2023-11-06 09:47 | A.OFFVIS_ITS ---
Intake Vital Signs 11/06/23 09:47 Height 5 ft 3 in Weight 198 lb 6.656 oz BMI 35.1 BP 121/67 Blood Pressure Location Rt brachial Position Sitting Pulse 59 Intake Visit Reasons: 3 mth follow up CIC, GERD, thoracic radicular pain Intake Note: Patient presents to in office visit today in follow up of CIC and hemorrhoids. CC: Patient states he has been having a lot of trouble with the hemorrhoids. Per patient he is having a lot of burning and discomfort from hemorrhoids, worst at bedtime. He states that when he eliminates gas and empty his bowels he feels better from hemorrhoids. He states he takes the Senna every other day to avoid having to use the bathroom when he is out of his home. He also c/o nausea and constant upper abdominal pain. Denies having other GI concerns today. 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 Accompanied by: Self / Same As Patient Allergies No Known Drug Allergies Allergy (Unknown, Verified 11/06/23 10:02) none seafood Allergy (Verified 11/06/23 10:02) Anaphylaxis HPI 3 mth follow up CIC, GERD, thoracic radicular pain HPI Details Assessment & Plan (1) GERD (gastroesophageal reflux diseas e): Code(s): K21.9 - Gastro-esophageal reflux disease without esophagitis Qualifiers: Esophagitis presence: esophagitis presence not specified Qualified Code(s): K21.9 - Gastro-esophageal reflux disease without esophagitis Plan: Syrian #Jennifer Live He is not using the LInzess 72, because even at the lowest does it was causing too frequent stooling and tenesmus. He is doing better with the senna. . I explained that I have not found any GI reason for the pain in his right flank so I think that this is probably radicular pain. The thoracic spine x-ray does show multilevel degenerative disc disease with so I think physical therapy and conservative treatments through his primary care provider would best served to cure this particular problem.. He continues on his famotidine and his dicyclomine as needed. Return office visit in 6 months (2) Abdominal bloating: Code(s): R14.0 - Abdominal distension (gaseous) (3) Constipation: Code(s): K59.00 - Constipation, unspecified TODAY'S VISIT Syrian #Frandy Live He is doing well, except that his hemorrhoids are bothering him. Apparently he went without his medications for a bit and this caused constipation which likely is the reason for the hemorrhoid exacerbation. Try treating with irpy-myy-[id number] suppositories but had difficulty inserting them. I will prescribe in an jqoa-ueh-npylmvl cream and assistant corporation counsel him not to stop his constipation medications since this is likely what causes the hemorrhoids to worsen from straining. He continues to do well on his famotidine, uses senna for his constipation, has dicyclomine for occasional cramping. He continues to have a bothersome discomfort in the right upper quadrant which again I think is from thoracic radiculopathy since we have done extensive GI workup without finding a cause. This explanation was again reiterated to him. Return office visit in 6 months of course he can come back sooner if the hemorrhoid problem is not resolved with Proctosol. [facility] Medical History Right upper quadrant abdominal pain Left elbow pain CELESTE (generalized anxiety disorder) Mixed hyperlipidemia Mild recurrent major depression Dyslipidemia Annual physical exam Epididymal mass Depression with anxiety Fibromyalgia GERD (gastroesophageal reflux disease) Asthma Surgical History History of testicular surgery History of esophagogastroduodenoscopy (EGD) History of left inguinal hernia repair Family History Maternal Grandfather History of lung cancer Paternal Uncle History of prostate cancer Father Asthma HTN (hypertension) Hx of CABG Mother Depression Other CVD (cardiovascular disease) Social History Housing: Apartment Alcohol intake: former Patient Tobacco Use Status: Never used Tobacco e-Cigarette/Vaping Use: Never Used Second Hand Smoke Exposure: No Advance Directives Date on File: 07/19/20 service: No Current occupational status: unemployed Cognitive needs: Yes Hearing needs: No Vision needs: No Review of Systems Const Denies fatigue, Denies fever(s), Denies night sweats, Denies poor appetite and Denies weight loss ENT Reports Normal hearing present, Denies dental pain, Denies dysphagia, Denies hearing loss, Denies mouth pain, Denies odynophagia, Denies throat swelling, Denies tongue swelling and Reports other (Dentition adequate) Card Reports no additional complaints Resp Reports no additional complaints GI Details: Hemorrhoidal discomfort Denies abdominal pain, Denies melena, Denies bloating, Denies hematochezia, Reports constipation, Denies GI cramping, Denies dysphagia, Denies excessive flatus, Denies early satiety, Reports heartburn, Denies diarrhea, Denies nausea, Denies odynophagia, Denies vomiting and Denies hematemesis Skin/Breast Denies pruritus, Denies lesions, Denies rash and Denies jaundice Neuro Reports Normal hearing present and Denies Abnormal speech present Endo Denies fatigue Aller/Immun Denies throat swelling and Denies tongue swelling Physical Exam Vital Signs: Last Vital Signs Pulse 59 11/06/23 09:47 BP 121/67 11/06/23 09:47 BMI result Body Mass Index 35.1 Const General: cooperative, no acute distress, well developed and well groomed Nutritional Appearance: well nourished and obese Orientation/consciousness: oriented to person, oriented to place and oriented to time Limitations: language barrier HEENT Head: Yes normocephalic and Yes atraumatic Eyes General: appearance normal, both eyes and all related structures Pupils: Equal, round and reactive pupils present Neck Neck: Yes normal visual inspection and Yes no lymphadenopathy Thyroid: Thyroid normal Resp Effort & Inspection: normal respiratory effort and able to speak in complete sentences Auscultation: clear to auscultation bilaterally Cardio Rate: regular rate Rhythm: regular rhythm Heart sounds: Normal, physiologic split S2 sound present Peripheral pulses: radial pulses present and posterior tibial pulses present GI Inspection: No distended, No Abdominal panniculus present and Yes obesity Palpation (GI): Soft to palpation, nontender, no guarding, not rigid and No hepatosplenomegaly present Percussion: Yes normal to percussion Auscultation: normal bowel sounds Rectal Exam - Male: Yes deferred Skin General skin exam: no rashes or lesions noted, turgor normal, skin not dry, no jaundice, No spider nevi and no striae Rashes: no rashes Nails: normal Neuro General: oriented to person, oriented to place and oriented to time Cranial nerves: Yes Equal, round and reactive pupils present and Yes Normal hearing present Speech: No Abnormal speech present Extrem General: Yes normal to inspection, No clubbing, No cyanosis and No edema Psych Appearance: grossly normal and well kempt Mental Status: mental status grossly normal Speech and movement: Normal speech and movement present Affect: normal affect Attitude: cooperative Thought process: Normal thought process present and not confabulating Thought content: Normal thought content present Insight: Limited insight present (Psych) Judgement: Limited judgement present (Psych) Assessment & Plan Assessment & Plan (1) GERD (gastroesophageal reflux disease): Code(s): K21.9 - Gastro-esophageal reflux disease without esophagitis Qualifiers: Esophagitis presence: esophagitis presence not specified Qualified Code(s): K21.9 - Gastro-esophageal reflux disease without esophagitis (2) Abdominal bloating: Code(s): R14.0 - Abdominal distension (gaseous) (3) Constipation: Code(s): K59.00 - Constipation, unspecified Plan Syrian #Frandy Live He is doing well, except that his hemorrhoids are bothering him. Apparently he went without his medications for a bit and this caused constipation which likely is the reason for the hemorrhoid exacerbation. Try treating with iyet-kra-ifqdypw suppositories but had difficulty inserting them. I will prescribe in an mxqg-iau-ckexxtt cream and assistant corporation counsel him not to stop his constipation medications since this is likely what causes the hemorrhoids to worsen from straining. He continues to do well on his famotidine, uses senna for his constipation, has dicyclomine for occasional cramping. He continues to have a bothersome discomfort in the right upper quadrant which again I think is from thoracic radiculopathy since we have done extensive GI workup without finding a cause. This explanation was again reiterated to him. Return office visit in 6 months of course he can come back sooner if the hemorrhoid problem is not resolved with Proctosol. Medications: New hydrocortisone 2.5% (Proctosol HC) BE SURE TO INCLUDE RECTAL APPICATOR!! 1 appl [place] BID 30 grams 6RF hemorrhoids K64.9 - Unspecified hemorrhoids sennosides (senna) 17.2 mg (2 x 8.6 mg) PO BEDTIME 60 tabs 6RF constipation K59.00 - Constipation, unspecified Refilled famotidine (Pepcid) D/c 20mg dose as not controlling sx 40 mg PO BID 30 days 60 tabs 6RF K21.9 - Gastro-esophageal reflux disease without esophagitis dicyclomine 10 - 20 mg (1 - 2 x 10 mg) PO QID 30 days 240 caps 5RF K62.89 - Other specified diseases of anus and rectum Discontinued linaclotide (Linzess) Discontinued Reason: Doctor's Order 72 mcg PO QAM 30 caps 3RF K59.00 - Constipation, unspecified, R10.9 - Unspecified abdominal pain Coding Level of Care Code Est Pt Level 3 (42500) Diagnoses Gastroesophageal reflux disease, unspecified whether esophagitis present K21.9 Esophagitis presence: esophagitis presence not specified Abdominal bloating R14.0 Constipation K59.00
== END 2023-11-06 10:42 | disposition home or self-care (01) ==
PROVIDERS: PCP Internal Medicine; Visit Provider Nurse Practitioner
DX: K21.9 Gastro-esophageal reflux disease without esophagitis (principal); R14.0 Abdominal distension (gaseous); K59.00 Constipation, unspecified
CPT/HCPCS: 99213

== ENCOUNTER 2023-11-06 09:45 | Outpatient (REF) | payer MEDICARE, MEDICAID, SELFPAY ==
[2023-11-09 08:09] LABS: TS Negative Control Passed; TS Panel A 1; TS Panel B 0; TS Positive Control Passed; TSpotTB Negative (Negative)
== END 2023-11-06 09:46 | disposition home or self-care (01) ==
LOC: HO.LAB 09:45
PROVIDERS: Absent Provider Internal Medicine; PCP Internal Medicine; Visit Provider Nurse Practitioner
DX: Z11.1 Encounter for screening for respiratory tuberculosis (principal); K21.9 Gastro-esophageal reflux disease without esophagitis; R14.0 Abdominal distension (gaseous); K59.00 Constipation, unspecified
CPT/HCPCS: 36415; 86481; 99212

== ENCOUNTER 2024-01-31 10:06 | Outpatient (AMB) | payer MEDICARE, MEDICAID, SELFPAY ==
[2024-01-31 10:16] VITALS: BP 120/82; BMI 36.0
--- NOTE | 2024-01-31 10:16 | MHC.PC.OV ---
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 Accompanied by: Self / Same As Patient Allergies No Known Drug Allergies Allergy (Unknown, Verified 01/31/24 10:31) none seafood Allergy (Verified 01/31/24 10:31) Anaphylaxis Medication List - Last Reconciled 01/31/24 by Sherine Guy MD atorvastatin 80 mg PO DAILY 90 days citalopram 10 mg PO DAILY clonazepam 1 mg PO BEDTIME PRN clonazepam 0.5 mg PO DAILY PRN dicyclomine 10 - 20 mg (1 - 2 x 10 mg) PO QID 30 days famotidine (Pepcid) 40 mg PO BID 30 days gabapentin 800 mg PO BID 30 days hydrocortisone 2.5% (Proctosol HC) 1 appl [place] BID meloxicam 15 mg PO DAILY PRN 30 days methocarbamol 750 mg PO BID PRN 30 days sennosides (senna) 17.2 mg (2 x 8.6 mg) PO BEDTIME tadalafil 5 mg PO DAILY 90 days trazodone 100 - 150 mg PO BEDTIME PRN Ventolin HFA 90 mcg/actuation (albuterol sulfate) 2 puffs inhalation Q6H PRN 30 days NS Tobacco use date assessed: 01/31/24 Dental Screening Dental Screen Date: 01/31/24 Did you have a dental visit in the last 12 months?: No Did you have a dental problem in the last 6 months where you did not have access to dental care?: No Was dental information given to patient?: Patient has dentist HPI HPI Comments History of Present Illness Details This is a 43-year-old male with mild major depression, generalized anxiety disorder, dyslipidemia, GERD and fibromyalgia that comes today complaining of a headache that started about a month ago with no neurological deficit. The headache involves the whole head and also has bilateral eye pain with no blurry vision or photosensitivity. No aggravating or relieving factors. Last week happened twice. No triggering factor identified. I will prescribe sumatriptan as needed. Side effects were discussed. Depression and anxiety has been stable with medications and this is follow by Psychiatry. Patient aware that clonazepam can cause addiction, sedation and memory loss. On statins for his dyslipidemia. GERD stable with famotidine. Fibromyalgia controlled with gabapentin which he is aware can also cause addiction and sedation. He says that the headaches are associated with right-sided chest pain and this happens at rest. [facility] Medical History (Updated 01/31/24 @ 11:30 by Sherine Guy MD) Right upper quadrant abdominal pain Left elbow pain CELESTE (generalized anxiety disorder) Mixed hyperlipidemia Mild recurrent major depression Dyslipidemia Annual physical exam Epididymal mass Depression with anxiety Fibromyalgia GERD (gastroesophageal reflux disease) Asthma Surgical History History of testicular surgery History of esophagogastroduodenoscopy (EGD) History of left inguinal hernia repair Family History Maternal Grandfather History of lung cancer Paternal Uncle History of prostate cancer Father Asthma HTN (hypertension) Hx of CABG Mother Depression Other CVD (cardiovascular disease) Social History Housing: Apartment Alcohol intake: former Patient Tobacco Use Status: Never used Tobacco e-Cigarette/Vaping Use: Never Used Second Hand Smoke Exposure: No Advance Directives Date on File: 07/19/20 service: No Current occupational status: unemployed Cognitive needs: Yes Hearing needs: No Vision needs: No Questionnaire PHQ-9 Over the last 2 weeks, how often have you been bothered by any of the following problems? 1. Little interest or pleasure in doing things: not at all 2. Feeling down, depressed, or hopeless: not at all 3. Trouble falling or staying asleep, or sleeping too much: several days 4. Feeling tired or having little energy: several days 5. Poor appetite or overeating: several days 6. Feeling bad about yourself - or that you are a failure or have let yourself or your family down: not at all 7. Trouble concentrating on things, such as reading the newspaper or watching television: not at all 8. Moving or speaking so slowly that other people could have noticed. Or the opposite - being so fidgety or restless that you have been moving around a lot more than usual: not at all 9. Thoughts that you would be better off or of hurting yourself in some way: not at all Total score: 3 Depression Screening Interpretation: Positive Depression Screening Follow-up: Existing condition, In treatment and Community Mental Health Worker F/U Depression Screening Done: Yes 09219 - PHQ-9 Billing: Yes Source: Developed by Drs. Gildardo Flores, Tequila Buitrago, Yo Proctor and colleagues, with an educational kevin from [employer]. Thrive Questionnaire Date Thrive assessed: 01/31/24 I am a: Patient What is your living situation today?: I have a steady place to live Within the past 12 months, did the food you bought not last and you didn't have the money to get more?: Never true Within the past 12 months, did you worry whether your food would run out before you got money to buy more?: Never true Do you have trouble paying for medicines?: No Do you have trouble getting transportation to medical appointments?: No Do you have trouble paying your heating and electricity bill?: No Do you have trouble taking care of your child, family member or friend?: No Do you have trouble with day-to-day activities such as bathing, preparing meals, shopping, managing finances, etc.?: No Are you currently unemployed and looking for a job?: No Are you interested in more education?: No Please select the resources that you would like help with: None Currently or been in a relationship where the following occur: no concerns reported THRIVE Score: 0 AUDIT C Alcohol Use Questionnaire (AUDIT-C) 1. How often do you have a drink containing alcohol?: Never Total Score: 0 Score Reviewed/Action Taken: No CELESTE-7 AMB Questionnaire CELESTE-7 Date CELESTE - 7 assessed: 01/31/24 Feeling nervous, anxious, or on edge: 0 = Not at all Not being able to stop or control worryin = Not at all Worrying too much about different things: 0 = Not at all Trouble relaxin = Not at all Being so restless that it is hard to sit still: 0 = Not at all Becoming easily annoyed or irritable: 0 = Not at all Feeling afraid as if something awful might happen: 0 = Not at all Total CELESTE-7 score (0-4 normal; 5-9 mild; 10-14 moderate; 15-21 severe): 0 Source: Developed by Drs. Gildardo Flores, Tequila Buitrago, Yo Proctor and colleagues, with an educational kevin from [employer]. CELESTE-7 Assessment Billing CELESTE-7 Assessment Tool: CELESTE-7 Assessment 60957 Review of Systems Const All systems reviewed & are unremarkable except as noted in HPI and below Resp Denies cough GI Denies abdominal pain, Denies change in bowel habits, Denies excessive flatus, Denies nausea and Denies vomiting Denies urinary hesitancy, Denies urinary incontinence and Denies urinary urgency Musc Denies abnormal gait, Denies atrophy, Denies deformity and Denies limited range of motion Skin/Breast Denies bleeding lesions, Denies changing lesions and Denies rash Neuro Denies abnormal gait, Denies behavioral changes, Denies confusion and Denies lack of coordination Psych Denies behavioral changes and Denies confusion Physical exam (Primary Care) Vital Signs: Last Vital Signs BP 120/82 01/31/24 10:16 BMI result Body Mass Index 36.0 Tobacco/Smoking Status: Tobacco use Status Tobacco use date assessed 01/31/24 01/31/24 10:21 Patient Tobacco Use Status Never used Tobacco 01/31/24 10:21 e-Cigarette/Vaping Use Never Used 01/31/24 10:21 PHQ-9: PHQ-9 Score PHQ-9: Total score 3 01/31/24 10:35 Depression Screening Interpretation: Positive Depression Screening Follow-up: Existing condition, In treatment and Community Mental Health Worker F/U Thrive Assessment: Date of Thrive Assessment Date Thrive assessed 01/31/24 01/31/24 10:21 Currently or been in a relationship where the following occur: no concerns reported Const General: No confusion Orientation/consciousness: patient oriented x3 and No confusion Resp Effort & Inspection: normal respiratory effort Auscultation: clear to auscultation bilaterally Cardio Jugular venous distension: no JVD Rate: regular rate Rhythm: regular rhythm Heart sounds: S1 normal heart sound present and S2 normal heart sound present Neuro General: patient oriented x3, no focal motor deficits and No confusion Extrem General: Yes full ROM Assessment and Plan Assessment & Plan (1) Headache: Code(s): R51.9 - Headache, unspecified Qualifiers: Headache type: tension-type Plan: Start sumatriptan as needed. (2) Mild recurrent major depression: Code(s): F33.0 - Major depressive disorder, recurrent, mild Plan: Continue citalopram. Follow-up with psychiatry. (3) GERD (gastroesophageal reflux disease): Code(s): K21.9 - Gastro-esophageal reflux disease without esophagitis Qualifiers: Esophagitis presence: esophagitis presence not specified Qualified Code(s): K21.9 - Gastro-esophageal reflux disease without esophagitis Plan: Continue famotidine. (4) Fibromyalgia: Code(s): M79.7 - Fibromyalgia Plan: Continue gabapentin. (5) Dyslipidemia: Code(s): E78.5 - Hyperlipidemia, unspecified Plan: Continue statins. (6) CELESTE (generalized anxiety disorder): Code(s): F41.1 - Generalized anxiety disorder Plan: Continue clonazepam as needed. Follow-up with psychiatry. Medications: New sumatriptan succinate do not exceed 8 doses per 24 hrs 25 mg PO Q2-4H PRN 9 tabs 0RF migraine headache 30 days Refilled Ventolin HFA 90 mcg/actuation (albuterol sulfate) 2 puffs inhalation Q6H PRN 8 grams 4RF shortness of breath or wheezing 30 days NS Coding Level of Care Code Est Pt Level 4 (50354) Diagnoses Headache R51.9 Headache type: tension-type Mild recurrent major depression F33.0 Gastroesophageal reflux disease, unspecified whether esophagitis present K21.9 Esophagitis presence: esophagitis presence not specified Fibromyalgia M79.7 Dyslipidemia E78.5 CELESTE (generalized anxiety disorder) F41.1 Additional Codes CELESTE-7 Assessment Billing - CELESTE-7 Assessment Tool: CELESTE-7 Assessment 80122 ([id number]) Time Spent (min) 25
== END 2024-01-31 10:38 | disposition home or self-care (01) ==
PROVIDERS: PCP Internal Medicine; Visit Provider Internal Medicine
DX: R51.9 Headache, unspecified (principal); F33.0 Major depressive disorder, recurrent, mild; K21.9 Gastro-esophageal reflux disease without esophagitis; M79.7 Fibromyalgia; E78.5 Hyperlipidemia, unspecified; F41.1 Generalized anxiety disorder
CPT/HCPCS: 99214

== ENCOUNTER 2024-02-01 08:20 | Outpatient (AMB) | payer MEDICARE, MEDICAID, SELFPAY ==
--- NOTE | 2024-02-01 08:56 | MHC.OFFVIS ---
Intake Visit Reasons: Med Review(Tadalafil) Intake Note: Patient is Present for Follow Up Urology Medication: Tadalafil Antibiotic Allergies:None Blood Thinners:None Allergies No Known Drug Allergies Allergy (Unknown, Verified 01/31/24 10:31) none seafood Allergy (Verified 01/31/24 10:31) Anaphylaxis Medication List - Last Reconciled 02/01/24 by Harlan Gregory MD atorvastatin 80 mg PO DAILY 90 days citalopram 10 mg PO DAILY clonazepam 1 mg PO BEDTIME PRN clonazepam 0.5 mg PO DAILY PRN dicyclomine 10 - 20 mg (1 - 2 x 10 mg) PO QID 30 days famotidine (Pepcid) 40 mg PO BID 30 days gabapentin 800 mg PO BID 30 days hydrocortisone 2.5% (Proctosol HC) 1 appl [place] BID meloxicam 15 mg PO DAILY PRN 30 days methocarbamol 750 mg PO BID PRN 30 days sennosides (senna) 17.2 mg (2 x 8.6 mg) PO BEDTIME sumatriptan succinate 25 mg PO Q2-4H PRN 30 days tadalafil 5 mg PO DAILY 90 days trazodone 100 - 150 mg PO BEDTIME PRN Ventolin HFA 90 mcg/actuation (albuterol sulfate) 2 puffs inhalation Q6H PRN 30 days NS HPI Comments Details: Guru is a pleasant male. He is a patient of Dr. Vega. He is seen for the following urologic conditions - spermatocele - erectile dysfunction Ukrainian translation provided by qualified medical sales specialist Thickening epididymal tail and head Normal discomfort of testicle Also brings up issue today of who fell after vasectomy. Will bring sperm sample for office evaluation in 6 weeks Spermatocele Repair October 2020 left side Erectile dysfunction Continue good response to daily 5 mg tadalafil PFSH Medical History Right upper quadrant abdominal pain Left elbow pain CELESTE (generalized anxiety disorder) Mixed hyperlipidemia Mild recurrent major depression Dyslipidemia Annual physical exam Epididymal mass Depression with anxiety Fibromyalgia GERD (gastroesophageal reflux disease) Asthma Surgical History History of testicular surgery History of esophagogastroduodenoscopy (EGD) History of left inguinal hernia repair Family History Maternal Grandfather History of lung cancer Paternal Uncle History of prostate cancer Father Asthma HTN (hypertension) Hx of CABG Mother Depression Other CVD (cardiovascular disease) Social History Housing: Apartment Alcohol intake: former Patient Tobacco Use Status: Never used Tobacco e-Cigarette/Vaping Use: Never Used Second Hand Smoke Exposure: No Advance Directives Date on File: 07/19/20 service: No Current occupational status: unemployed Cognitive needs: Yes Hearing needs: No Vision needs: No Review of Systems Const Denies chills and Denies fever(s) Card Reports no additional complaints and Denies syncope Resp Denies cough GI Denies abdominal pain and Denies heartburn Reports as per HPI and Denies change in libido Neuro Denies syncope Psych Denies change in libido Endo Denies change in libido Physical Exam Const General: cooperative, healthy appearing, comfortable and no acute distress Orientation/consciousness: patient oriented x3 HEENT Face and sinus: Yes normal facial exam Mouth: moist mucous membranes Neck Neck: Yes normal visual inspection, Yes full ROM and Yes trachea midline Chest Chest palpation & inspection: normal inspection of the chest Resp Effort & Inspection: normal respiratory effort, able to speak in complete sentences and no respiratory distress GI Inspection: Yes normal to inspection Back/Spine/Pelvis Cervical Spine: normal cervical lordosis Thoracic/Lumbar Spine: thoracic and lumbar spine normal to inspection Skin General skin exam: no rashes or lesions noted Neuro General: patient oriented x3, gait normal, tone normal and moves all extremities Extrem General: Yes normal to inspection and Yes capillary refill normal Assessment & Plan Assessment & Plan (1) Erectile dysfunction: Code(s): N52.9 - Male erectile dysfunction, unspecified Category: Medical (2) Epididymal mass: Code(s): N50.89 - Other specified disorders of the male genital organs Category: Medical Plan Six week follow-up sperm evaluation Medications: Refilled tadalafil 5 mg PO DAILY 90 days 90 tabs 1RF sexual activity N52.9 - Male erectile dysfunction, unspecified Patient Instructions: Imaging studies, laboratory and physical exam results were discussed and reviewed in detail. No major barriers to patient understanding were identified. An opportunity to ask questions regarding the treatment plan was provided. All questions were answered. The patient expressed understanding and agreement with the above treatment plan. The patient is aware they should contact our office by phone for worsening of their current condition or the appearance of new urologic symptoms. Compliance is encouraged with any medications and followup testing that is ordered. It is a privilege to participate in the urologic care of your patient. If you have any questions or concerns regarding treatment for the above conditions, or other urologic issues, please do not hesitate to contact me. The office telephone contact is [phone]. This note is constructed using voice recognition software. While every effort has been made to ensure accuracy weight loss sales consultant errors may have been included. Yours sincerely, Dr Harlan Gregory MD, JAJA [facility] - Urology Providers of Expert, Compassionate Care for the Genitourinary System Coding Level of Care Code Est Pt Level 4 (00770) Diagnoses Erectile dysfunction N52.9 Epididymal mass N50.89
== END 2024-02-01 09:15 | disposition home or self-care (01) ==
PROVIDERS: PCP Internal Medicine; Visit Provider Urology
DX: N52.9 Male erectile dysfunction, unspecified (principal); N50.89 Other specified disorders of the male genital organs
CPT/HCPCS: 99214

== ENCOUNTER → 2024-02-01 08:20 | Outpatient (BNVA) | payer MEDICARE, MEDICAID, SELFPAY | PROVIDERS: PCP Internal Medicine; Visit Provider Urology | DX: N52.9 Male erectile dysfunction, unspecified (principal); N50.89 Other specified disorders of the male genital organs; Z79.899 Other long term (current) drug therapy | CPT/HCPCS: 99212 ==

== ENCOUNTER → 2024-03-21 15:30 | Outpatient (BNVA) | payer MEDICARE, MEDICAID, SELFPAY | PROVIDERS: PCP Internal Medicine; Visit Provider Urology ==

== ENCOUNTER 2024-05-06 08:54 | Outpatient (AMB) | payer MEDICARE, MEDICAID, SELFPAY ==
--- NOTE | 2024-05-06 08:55 | MHC.OFFVIS ---
Vital Signs 05/06/24 08:56 Height 5 ft 3 in Weight 205 lb 0.478 oz BMI 36.3 BP 140/80 H Blood Pressure Location Lt brachial Position Sitting Pulse 69 Intake Visit Reasons: 6 month follow up Intake Note: Guru presents in the office as a 6 month follow up. CC: He states that he is not having any concerns at this time. Assistant Account Executive Required: Yes Assistant Account Executive Name: [id number] Lorene Allergies No Known Drug Allergies Allergy (Unknown, Verified 05/06/24 09:01) none seafood Allergy (Verified 05/06/24 09:01) Anaphylaxis HPI HPI 6 month follow up: Details: Assessment & Plan (1) GERD (gastroesophageal reflux disease): Code(s): K21.9 - Gastro-esophageal reflux disease without esophagitis Qualifiers: Esophagitis presence: esophagitis presence not specified Qualified Code(s): K21.9 - Gastro-esophageal reflux disease without esophagitis (2) Abdominal bloating: Code(s): R14.0 - Abdominal distension (gaseous) (3) Constipation: Code(s): K59.00 - Constipation, unspecified Plan [place] #Frandy Live He is doing well, except that his hemorrhoids are bothering him. Apparently he went without his medications for a bit and this caused constipation which likely is the reason for the hemorrhoid exacerbation. Try treating with [id number] suppositories but had difficulty inserting them. I will prescribe in an tekw-ycy-[id number] cream and consumer credit counselor him not to stop his constipation medications since this is likely what causes the hemorrhoids to worsen from straining. He continues to do well on his famotidine, uses senna for his constipation, has dicyclomine for occasional cramping. He continues to have a bothersome discomfort in the right upper quadrant which again I think is from thoracic radiculopathy since we have done extensive GI workup without finding a cause. This explanation was again reiterated to him. Return office visit in 6 months of course he can come back sooner if the hemorrhoid problem is not resolved with Proctosol. Medications: New hydrocortisone 2.5% (Proctosol HC) BE SURE TO INCLUDE RECTAL APPICATOR!! 1 appl [place] BID 30 grams 6RF hemorrhoids K64.9 - Unspecified hemorrhoids sennosides (senna) 17.2 mg (2 x 8.6 mg) PO BEDTIME 60 tabs 6RF constipation K59.00 - Constipation, unspecified Refilled famotidine (Pepcid) D/c 20mg dose as not controlling sx 40 mg PO BID 30 days 60 tabs 6RF K21.9 - Gastro-esophageal reflux disease without esophagitis dicyclomine 10 - 20 mg (1 - 2 x 10 mg) PO QID 30 days 240 caps 5RF K62.89 - Other specified diseases of anus and rectum Discontinued linaclotide (Linzess) Discontinued Reason: Doctor's Order 72 mcg PO QAM 30 caps 3RF K59.00 - Constipation, unspecified, R10.9 - Unspecified abdominal pain TODAY'S VISIT [place] #Felipe Live He says he has been so, so. His roids adn the GERD is bothering him. This despite taking famotidine bid 40mg and in the past omeprazole did not work well for him, so we will progress to pantoprazole 40mg bid. He is using the proctosol cream bid and his stooling is soft. We discuss a referral to the general surgeon to discuss surgery and he agrees. ROv 8 weeks to eval response to protonix [facility] Medical History (Updated 05/06/24 @ 09:07 by KRISTINA Cheung) Dyslipidemia Kidney stone Back pain Right upper quadrant abdominal pain Right flank pain Disorder of kidney and ureter Adult general medical exam Epididymal mass Left testicular pain Lipoma of spermatic cord Left elbow pain CELESTE (generalized anxiety disorder) Mixed hyperlipidemia Mild recurrent major depression Dyslipidemia Annual physical exam Depression with anxiety Fibromyalgia GERD (gastroesophageal reflux disease) Asthma Surgical History History of testicular surgery History of esophagogastroduodenoscopy (EGD) History of left inguinal hernia repair Family History Maternal Grandfather History of lung cancer Paternal Uncle History of prostate cancer Father Asthma HTN (hypertension) Hx of CABG Mother Depression Other CVD (cardiovascular disease) Social History Housing: Apartment Alcohol intake: former Patient Tobacco Use Status: Never used Tobacco e-Cigarette/Vaping Use: Never Used Second Hand Smoke Exposure: No Advance Directives Date on File: 07/19/20 service: No Current occupational status: unemployed Cognitive needs: Yes Hearing needs: No Vision needs: No Review of Systems Const Denies fatigue, Denies fever(s), Denies night sweats, Denies poor appetite and Denies weight loss ENT Reports Normal hearing present, Denies dental pain, Denies dysphagia, Denies hearing loss, Denies mouth pain, Denies odynophagia, Denies throat swelling, Denies tongue swelling and Reports other (Dentition adequate) Card Reports no additional complaints Resp Reports no additional complaints GI Details: Denies abdominal pain, Denies melena, Denies bloating, Reports hematochezia, Denies constipation, Reports GI cramping, Denies dysphagia, Denies excessive flatus, Denies early satiety, Reports heartburn, Denies diarrhea, Denies nausea, Denies odynophagia, Denies vomiting and Denies hematemesis Musc Reports back pain Skin/Breast Denies pruritus, Denies lesions, Denies rash and Denies jaundice Neuro Reports Normal hearing present and Denies Abnormal speech present Endo Denies fatigue Aller/Immun Denies throat swelling and Denies tongue swelling Physical Exam Const General: cooperative, no acute distress, well developed and well groomed Nutritional Appearance: well nourished and obese centrally obese Orientation/consciousness: oriented to person, oriented to place and oriented to time Limitations: language barrier HEENT Head: Yes normocephalic and Yes atraumatic Eyes General: appearance normal, both eyes and all related structures Pupils: Equal, round and reactive pupils present Neck Neck: Yes normal visual inspection and Yes no lymphadenopathy Thyroid: Thyroid normal Resp Effort & Inspection: normal respiratory effort and able to speak in complete sentences Auscultation: clear to auscultation bilaterally Cardio Rate: regular rate Rhythm: regular rhythm Heart sounds: Normal, physiologic split S2 sound present Peripheral pulses: radial pulses present and posterior tibial pulses present GI Inspection: No distended, No Abdominal panniculus present and Yes obesity Palpation (GI): Soft to palpation, nontender, no guarding, not rigid and No hepatosplenomegaly present Percussion: Yes normal to percussion Auscultation: normal bowel sounds Rectal Exam - Male: Yes deferred Skin General skin exam: no rashes or lesions noted, turgor normal, skin not dry, no jaundice, No spider nevi and no striae Rashes: no rashes Nails: normal Neuro General: oriented to person, oriented to place and oriented to time Cranial nerves: Yes Equal, round and reactive pupils present and Yes Normal hearing present Speech: No Abnormal speech present Extrem General: Yes normal to inspection, No clubbing, No cyanosis and No edema Psych Appearance: grossly normal and well kempt Mental Status: mental status grossly normal Speech and movement: Normal speech and movement present Affect: normal affect Attitude: cooperative Thought process: Normal thought process present and not confabulating Thought content: Normal thought content present Insight: Fair insight present (Psych) and Limited insight present (Psych) Judgement: Fair judgement present (Psych) and Limited judgement present (Psych) Assessment & Plan Assessment & Plan (1) Constipation: Code(s): K59.00 - Constipation, unspecified Category: Medical (2) GERD (gastroesophageal reflux disease): Code(s): K21.9 - Gastro-esophageal reflux disease without esophagitis Category: Medical Qualifiers: Esophagitis presence: esophagitis presence not specified Qualified Code(s): K21.9 - Gastro-esophageal reflux disease without esophagitis Plan [place] #Felipe Live He says he has been so, so. His roids adn the GERD is bothering him. This despite taking famotidine bid 40mg and in the past omeprazole did not work well for him, so we will progress to pantoprazole 40mg bid. He is using the proctosol cream bid and his stooling is soft. We discuss a referral to the general surgeon to discuss surgery and he agrees. ROv 8 weeks to eval response to protonix Orders: Referrals General Surgery Referral K64.9 - Unspecified hemorrhoids Medications: New pantoprazole (Protonix) 40 mg PO BID 30 days 60 tabs 6RF Refilled dicyclomine 10 - 20 mg (1 - 2 x 10 mg) PO QID 30 days 240 caps 5RF K62.89 - Other specified diseases of anus and rectum hydrocortisone 2.5% (Proctosol HC) BE SURE TO INCLUDE RECTAL APPICATOR!! 1 appl [place] BID 30 grams 6RF hemorrhoids K64.9 - Unspecified hemorrhoids Discontinued famotidine (Pepcid) D/c 20mg dose as not controlling sx Discontinued Reason: Doctor's Order 40 mg PO BID 30 days 60 tabs 6RF K21.9 - Gastro-esophageal reflux disease without esophagitis Coding Level of Care Code Est Pt Level 3 (54014) Diagnoses Constipation K59.00 Gastroesophageal reflux disease, unspecified whether esophagitis present K21.9 Esophagitis presence: esophagitis presence not specified
[2024-05-06 08:56] VITALS: BP 140/80; PULSE 69; BMI 36.3
== END 2024-05-06 09:21 | disposition home or self-care (01) ==
PROVIDERS: PCP Internal Medicine; Visit Provider Nurse Practitioner
DX: K59.00 Constipation, unspecified (principal); K21.9 Gastro-esophageal reflux disease without esophagitis
CPT/HCPCS: 99213

== ENCOUNTER → 2024-05-06 08:54 | Outpatient (BNVA) | payer MEDICARE, MEDICAID, SELFPAY | PROVIDERS: PCP Internal Medicine; Visit Provider Nurse Practitioner | DX: K59.00 Constipation, unspecified (principal); K21.9 Gastro-esophageal reflux disease without esophagitis | CPT/HCPCS: 99212 ==

== ENCOUNTER 2024-05-19 09:45 | Outpatient (AMB) | payer MEDICARE, MEDICAID, SELFPAY ==
--- NOTE | 2024-05-19 09:51 | MHC.OFFVIS ---
Vital Signs 05/19/24 09:56 Height 5 ft 3 in Weight 204 lb BMI 36.1 BP 145/86 H Blood Pressure Location Rt brachial Position Sitting Pulse 72 Intake Visit Reasons: Unspecified hemorrhoids Intake Note: This patient presents for Unspecified hemorrhoids. Pt c/o; Onset over 1 year, reports burning sensation, reports rectal discharge, reports rectal bleeding, reports constipation. Occupational Therapist Home Based Required: Yes Occupational Therapist Home Based Language: Youth Associate Services: Occupational Therapist Home Based Present Occupational Therapist Home Based Name: Yenni Information Interpreted: non-clinical & clinical Accompanied by: Self / Same As Patient Allergies No Known Drug Allergies Allergy (Unknown, Verified 05/19/24 09:57) none seafood Allergy (Verified 05/19/24 09:57) Anaphylaxis Medication List - Last Reconciled 05/19/24 by Hugo Springer MD aripiprazole 5 mg PO DAILY atorvastatin 80 mg PO DAILY 90 days citalopram 10 mg PO DAILY clonazepam 1 mg PO BEDTIME PRN clonazepam 0.5 mg PO DAILY PRN dicyclomine 10 - 20 mg (1 - 2 x 10 mg) PO QID 30 days gabapentin 800 mg PO BID 30 days hydrocortisone 2.5% (Proctosol HC) 1 appl [place] BID meloxicam 15 mg PO DAILY PRN 30 days methocarbamol 750 mg PO BID PRN 30 days pantoprazole (Protonix) 40 mg PO BID 30 days sennosides (senna) 17.2 mg (2 x 8.6 mg) PO BEDTIME sumatriptan succinate 25 mg PO Q2-4H PRN 30 days tadalafil 5 mg PO DAILY 90 days trazodone 100 - 150 mg PO BEDTIME PRN Ventolin HFA 90 mcg/actuation (albuterol sulfate) 2 puffs inhalation Q6H PRN 30 days NS HPI HPI Unspecified hemorrhoids: Details: 44-year-old male referred for hemorrhoid issues. He says that he has had hemorrhoids for several years. For the past few months, he has been noticing worsening of discomfort, prolapse, and bleeding. He says that he has hemorrhoids become painful and swollen frequently now. He says that his bowel movements have been more uncomfortable. He notices small amounts of blood on wiping. He denies any constipation. He also says that he often times has drainage from the anus because of his hemorrhoids and he has to clean up frequently after bowel movements. [facility] Medical History (Updated 05/19/24 @ 10:16 by Hugo Springer MD) Hemorrhoids that prolapse with straining, but retract spontaneously Dyslipidemia Kidney stone Back pain Right upper quadrant abdominal pain Right flank pain Disorder of kidney and ureter Adult general medical exam Epididymal mass Left testicular pain Lipoma of spermatic cord Left elbow pain CELESTE (generalized anxiety disorder) Mixed hyperlipidemia Mild recurrent major depression Dyslipidemia Annual physical exam Depression with anxiety Fibromyalgia GERD (gastroesophageal reflux disease) Asthma Surgical History History of testicular surgery History of esophagogastroduodenoscopy (EGD) History of left inguinal hernia repair Family History Maternal Grandfather History of lung cancer Paternal Uncle History of prostate cancer Father Asthma HTN (hypertension) Hx of CABG Mother Depression Other CVD (cardiovascular disease) Social History Housing: Apartment Alcohol intake: former Patient Tobacco Use Status: Never used Tobacco e-Cigarette/Vaping Use: Never Used Second Hand Smoke Exposure: No Advance Directives Date on File: 07/19/20 service: No Current occupational status: unemployed Cognitive needs: Yes Hearing needs: No Vision needs: No Review of Systems Const Denies chills and Denies fever(s) Card Denies chest pain, Denies dyspnea and Denies dyspnea on exertion Resp Denies cough, Denies dyspnea and Denies dyspnea on exertion GI Denies hematochezia and Denies change in bowel habits Denies hematuria and Denies difficulty urinating Musc Reports abnormal gait, Reports back pain, Reports arthralgias and Reports limited range of motion Neuro Reports abnormal gait, Denies focal weakness and Denies convulsions Psych Reports anxiety, Reports depression and Denies mood swings Physical Exam Vital Signs: Last Vital Signs Pulse 72 05/19/24 09:56 BP 145/86 H 05/19/24 09:56 BMI result Body Mass Index 36.1 Const Other: Using a cane, morbidly obese General: comfortable and no acute distress Orientation/consciousness: patient oriented x3 Neck Neck: Yes no lymphadenopathy Resp Auscultation: clear to auscultation bilaterally Cardio Rhythm: regular rhythm GI Other: Small external hemorrhoids Palpation (GI): Soft to palpation, nontender and no guarding Neuro General: patient oriented x3 Office Procedures Anoscopy He was in elias-knife position. The anoscope was gently inserted. A full examination of the anal canal was done. He had large hemorrhoidal columns, mix of internal external on both left and right side. There were no other lesions. There was no fissure. There was no bleeding. There was no induration on digital exam. There was no ulceration [id number] Assessment & Plan Assessment & Plan (1) Hemorrhoids that prolapse with straining, but retract spontaneously: Code(s): K64.1 - Second degree hemorrhoids Category: Medical Plan: He has large hemorrhoids which appeared to be a mix of internal external. He describes a long history of prolapse, swelling, pain, discomfort and discharge from his hemorrhoids. He said he wants to proceed with hemorrhoidectomy. I had a long discussion with him about the technique of exam under anesthesia, hemorrhoidectomy. I reviewed the risks including but not limited to bleeding, infections, postop pain, sphincter injury as well as the benefits and alternatives. I reviewed with him what to expect postoperatively. He says he wants to proceed. Coding Level of Care Code New Pt Level 3 (79056) Diagnoses Hemorrhoids that prolapse with straining, but retract spontaneously K64.1 CPT Codes Details - CPT: 76766-[id number] ([id number])
[2024-05-19 09:56] VITALS: BP 145/86; PULSE 72; BMI 36.1
== END 2024-05-19 10:27 | disposition home or self-care (01) ==
PROVIDERS: PCP Internal Medicine; Referring Provider Nurse Practitioner; Visit Provider Surgery
DX: K64.1 Second degree hemorrhoids (principal)
CPT/HCPCS: 46600; 99203

== ENCOUNTER → 2024-05-19 09:45 | Outpatient (BNVA) | payer MEDICARE, MEDICAID, SELFPAY | PROVIDERS: PCP Internal Medicine; Referring Provider Nurse Practitioner; Visit Provider Surgery | DX: K64.1 Second degree hemorrhoids (principal) | CPT/HCPCS: 46600; 99202 ==

== ENCOUNTER 2024-05-21 14:27 | Outpatient (AMB) | payer MEDICARE, MEDICAID, SELFPAY ==
--- NOTE | 2024-05-21 14:45 | A.OFFVIS_ITS ---
Intake Visit Reasons: follow up/sperm evaluation Intake Note: Patient is present for sperm evaluation Urology Med: Tadalafil Seat Builder Required: Yes Seat Builder Language: Peruvian Accompanied by: Self / Same As Patient Allergies No Known Drug Allergies Allergy (Unknown, Verified 05/21/24 14:46) none seafood Allergy (Verified 05/21/24 14:46) Anaphylaxis HPI Comments Details: Guru is a pleasant male. He is a patient of Dr. Vega. He is seen for the following urologic conditions - spermatocele - erectile dysfunction - epididymitis Peruvian translation provided by qualified internist medical doctor md Patient requesting basic semen analysis after became No sperm seen on high power examination within office Findings discussed Right testicle with epididymal inflammation on examination today Prescription for prednisone and Naprosyn provided Spermatocele Repair October 2020 left side Thickening epididymal tail and head Prior vasectomy 2011 Erectile dysfunction Continue good response to daily 5 mg tadalafil PFSH Medical History Hemorrhoids that prolapse with straining, but retract spontaneously Dyslipidemia Kidney stone Back pain Right upper quadrant abdominal pain Right flank pain Disorder of kidney and ureter Adult general medical exam Epididymal mass Left testicular pain Lipoma of spermatic cord Left elbow pain CELESTE (generalized anxiety disorder) Mixed hyperlipidemia Mild recurrent major depression Dyslipidemia Annual physical exam Depression with anxiety Fibromyalgia GERD (gastroesophageal reflux disease) Asthma Surgical History History of testicular surgery History of esophagogastroduodenoscopy (EGD) History of left inguinal hernia repair Family History Maternal Grandfather History of lung cancer Paternal Uncle History of prostate cancer Father Asthma HTN (hypertension) Hx of CABG Mother Depression Other CVD (cardiovascular disease) Social History Housing: Apartment Alcohol intake: former Patient Tobacco Use Status: Never used Tobacco e-Cigarette/Vaping Use: Never Used Second Hand Smoke Exposure: No Advance Directives Date on File: 07/19/20 service: No Current occupational status: unemployed Cognitive needs: Yes Hearing needs: No Vision needs: No Review of Systems Const Denies chills and Denies fever(s) Card Reports no additional complaints and Denies syncope Resp Denies cough GI Denies abdominal pain and Denies heartburn Reports as per HPI and Denies change in libido Neuro Denies syncope Psych Denies change in libido Endo Denies change in libido Physical Exam Const General: cooperative, healthy appearing, comfortable and no acute distress Orientation/consciousness: patient oriented x3 HEENT Face and sinus: Yes normal facial exam Mouth: moist mucous membranes Neck Neck: Yes normal visual inspection, Yes full ROM and Yes trachea midline Chest Chest palpation & inspection: normal inspection of the chest Resp Effort & Inspection: normal respiratory effort, able to speak in complete sentences and no respiratory distress GI Inspection: Yes normal to inspection Back/Spine/Pelvis Cervical Spine: normal cervical lordosis Thoracic/Lumbar Spine: thoracic and lumbar spine normal to inspection Skin General skin exam: no rashes or lesions noted Neuro General: patient oriented x3, gait normal, tone normal and moves all extremities Extrem General: Yes normal to inspection and Yes capillary refill normal Assessment & Plan Assessment & Plan (1) Epididymitis: Code(s): N45.1 - Epididymitis Category: Medical (2) Erectile dysfunction: Code(s): N52.9 - Male erectile dysfunction, unspecified Category: Medical Plan One year follow-up Medications: New prednisone 20 mg PO DAILY 5 days 5 tabs 0RF N20.0 - Calculus of kidney, N50.819 - Testicular pain, unspecified naproxen (Naprosyn) 500 mg PO Q12H PRN 30 tabs 0RF pain N20.0 - Calculus of kidney, N50.819 - Testicular pain, unspecified Patient Instructions: Imaging studies, laboratory and physical exam results were discussed and reviewed in detail. No major barriers to patient understanding were identified. An opportunity to ask questions regarding the treatment plan was provided. All questions were answered. The patient expressed understanding and agreement with the above treatment plan. The patient is aware they should contact our office by phone for worsening of their current condition or the appearance of new urologic symptoms. Compliance is encouraged with any medications and followup testing that is ordered. It is a privilege to participate in the urologic care of your patient. If you have any questions or concerns regarding treatment for the above conditions, or other urologic issues, please do not hesitate to contact me. The office telephone contact is [phone]. This note is constructed using voice recognition software. While every effort has been made to ensure accuracy broach operator errors may have been included. Yours sincerely, Dr Harlan Gregory MD, JAJA [facility] - Urology Providers of Expert, Compassionate Care for the Genitourinary System Coding Level of Care Code Est Pt Level 4 (03313) Diagnoses Epididymitis N45.1 Erectile dysfunction N52.9
== END 2024-05-21 16:07 | disposition home or self-care (01) ==
PROVIDERS: PCP Internal Medicine; Visit Provider Urology
DX: N45.1 Epididymitis (principal); N52.9 Male erectile dysfunction, unspecified
CPT/HCPCS: 99214

== ENCOUNTER → 2024-05-21 14:27 | Outpatient (BNVA) | payer MEDICARE, MEDICAID, SELFPAY | PROVIDERS: PCP Internal Medicine; Visit Provider Urology | DX: N52.9 Male erectile dysfunction, unspecified (principal); N45.1 Epididymitis; N20.0 Calculus of kidney | CPT/HCPCS: 99212 ==

== ENCOUNTER 2024-07-01 10:03 | Outpatient (REF) | payer MEDICARE, MEDICAID, SELFPAY ==
--- NOTE | ~2024-07-01 | US_ITS ---
EXAMINATION: US RETROPERITONEAL LIMITED (RENAL ONLY) CLINICAL INFORMATION: Calculus of kidney. COMPARISON: CT urogram 06/20/2023. Ultrasound abdomen complete 02/28/2023 and 03/21/2022. Pelvic CT 07/19/2020. TECHNIQUE: Real-time imaging of the kidneys. FINDINGS: RIGHT KIDNEY: 10.2 x 5.7 x 5.0 cm (SAG x AP x TRV). The kidney is normal in size, contour, and echogenicity. Renal cortical thickness is normal. There is a right mid renal echogenic focus measuring 5 x 6 x 5 mm consistent with a small angiomyolipoma which can be seen in retrospect on the prior CT urogram from 06/20/2023. No other calculi or focal parenchymal lesions. No hydronephrosis. LEFT KIDNEY: 10.8 x 5.7 x 4.2 cm (SAG x AP x TRV). The kidney is normal in size, contour, and echogenicity. Renal cortical thickness is normal. No calculi or focal parenchymal lesions. No hydronephrosis. US/US renal BI IMPRESSION: Small right renal angiomyolipoma. No further imaging or followup is needed. Electronically signed by: Cesario Boykin MD 08/15/2024 12:54 PM EST
== END 2024-07-01 10:04 | disposition home or self-care (01) ==
LOC: HO.US 10:03
PROVIDERS: PCP Internal Medicine; Visit Provider Urology
DX: N20.0 Calculus of kidney (principal)
CPT/HCPCS: 76775

== ENCOUNTER 2024-07-04 08:00 | Day surgery (SDC) | payer MEDICARE, MEDICAID, SELFPAY ==
[2024-06-20 13:04] VITALS: BP 134/78; PULSE 61; RESP 16; O2SAT 96; BMI 37.6
--- NOTE | 2024-07-02 09:49 | P.CONAN_ITS ---
Documented by User: Argenis Damon NP 07/02/24 09:49 HPI - Anesthesia Eval Consult details Narrative: 44yo M for EAU, Hemorrhoidectomy PMFSH Active Problems Active Problems: All Active Problems (Updated 06/20/24 @ 12:54 by Cathryn Nunez RN) Epididymitis (Acute) Headache (Acute) Testicular pain (Acute) Obesity (BMI 30-39.9) (Acute) Renal disorder (Acute) Gross hematuria (Acute) Kidney lesion, [place], right (Acute) Sacroiliac joint dysfunction of both sides (Acute) Lumbosacral radiculopathy (Acute) Lumbar radiculitis (Acute) Muscle spasm of back (Acute) Lumbar spondylosis (Acute) Anxiety about health (Acute) Erectile dysfunction (Acute) Rectal pain (Acute) GERD (gastroesophageal reflux disease) (Acute) Constipation (Acute) Abdominal bloating (Acute) Dyslipidemia (Acute) Left inguinal hernia (Acute) Hemorrhoids that prolapse with straining, but retract spontaneously (Acute) Left elbow pain (Acute) CELESTE (generalized anxiety disorder) (Acute) Mixed hyperlipidemia (Acute) Mild recurrent major depression (Acute) Depression with anxiety (Acute) Fibromyalgia (Acute) Asthma (Acute) Past Medical History Medical History Arthritis Back pain Sleep apnea Hemorrhoids that prolapse with straining, but retract spontaneously Dyslipidemia Kidney stone Back pain Disorder of kidney and ureter Right flank pain Right upper quadrant abdominal pain Left elbow pain Adult general medical exam CELESTE (generalized anxiety disorder) Mixed hyperlipidemia Mild recurrent major depression Annual physical exam Epididymal mass Lipoma of spermatic cord Left testicular pain Depression with anxiety Fibromyalgia GERD (gastroesophageal reflux disease) Asthma Family History Family History Maternal Grandfather History of lung cancer Paternal Uncle History of prostate cancer Father Asthma HTN (hypertension) Hx of CABG Mother Depression Other CVD (cardiovascular disease) Surgical History Surgical History History of testicular surgery History of esophagogastroduodenoscopy (EGD) History of left inguinal hernia repair Social History Social History Housing: Apartment Are you a primary child care lead teacher to a significant other at home: No Do you presently have visiting nurse or other home services: Yes Alcohol intake: former Patient Tobacco Use Status: Never used Tobacco e-Cigarette/Vaping Use: Never Used Second Hand Smoke Exposure: No Use of substances other than those prescribed or required for medical reasons: No Have you been hit, kicked, punched, or otherwise hurt by someone within the past year? If so, by whom?: No Advance Directives: Yes Advance Directives Information Provided: No Advance Directives on File: Yes Advance Directives Date on File: 07/19/20 Recently lost weight without trying: No Eating poorly because of decreased appetite: No Nutrition Risks: No Nutritional Risk Poor oral hygiene: No service: No Current occupational status: unemployed Cognitive needs: Yes Hearing needs: No Vision needs: No Meds Allergies Allergy/AdvReac Type Severity Reaction Status Date / Time No Known Drug Allergies Allergy Unknown none Verified 05/21/24 14:46 seafood Allergy Anaphylaxis Verified 05/21/24 14:46 Home Medications ?Medication ?Instructions ?Recorded ?Confirmed ?Last Taken ?Type clonazepam 0.5 mg tablet 0.5 mg PO DAILY PRN Anxiety 07/06/20 06/20/24 Unknown History clonazepam 1 mg tablet 1 mg PO BEDTIME PRN Anxiety 07/06/20 06/20/24 Unknown History citalopram 10 mg tablet 10 mg PO DAILY 09/17/20 06/20/24 07/04/24 History trazodone 100 mg tablet 100 - 150 mg PO BEDTIME PRN 03/21/22 06/20/24 Unknown History Insomnia aripiprazole 5 mg tablet 5 mg PO DAILY 05/06/24 06/20/24 07/04/24 History Exam Height,Weight and Vital Signs: Height 5 ft 3 in Weight 96.162 kg Last Vital Signs Pulse 61 06/20/24 13:04 Resp 16 06/20/24 13:04 BP 134/78 06/20/24 13:04 Pulse Ox 96 06/20/24 13:04 O2 Del Method Room Air 06/20/24 13:04 Assessment and Plan Assessment Anesthesia Assessment: Chart Reviewed Documented by User: Pauline Dutton MD 07/04/24 09:13 [facility] Past Medical History Medical History Arthritis Back pain Sleep apnea Hemorrhoids that prolapse with straining, but retract spontaneously Dyslipidemia Kidney stone Back pain Disorder of kidney and ureter Right flank pain Right upper quadrant abdominal pain Left elbow pain Adult general medical exam CELESTE (generalized anxiety disorder) Mixed hyperlipidemia Mild recurrent major depression Annual physical exam Epididymal mass Lipoma of spermatic cord Left testicular pain Depression with anxiety Fibromyalgia GERD (gastroesophageal reflux disease) Asthma Family History Family History Maternal Grandfather History of lung cancer Paternal Uncle History of prostate cancer Father Asthma HTN (hypertension) Hx of CABG Mother Depression Other CVD (cardiovascular disease) Family history of problems with anesthesia: No Surgical History Surgical History History of testicular surgery History of esophagogastroduodenoscopy (EGD) History of left inguinal hernia repair History of Problems with Anesthesia: No Social History Social History Housing: Apartment Are you a primary child care lead teacher to a significant other at home: No Do you presently have visiting nurse or other home services: Yes Alcohol intake: former Patient Tobacco Use Status: Never used Tobacco e-Cigarette/Vaping Use: Never Used Second Hand Smoke Exposure: No Use of substances other than those prescribed or required for medical reasons: No Have you been hit, kicked, punched, or otherwise hurt by someone within the past year? If so, by whom?: No Advance Directives: Yes Advance Directives Information Provided: No Advance Directives on File: Yes Advance Directives Date on File: 07/19/20 Recently lost weight without trying: No Eating poorly because of decreased appetite: No Nutrition Risks: No Nutritional Risk Poor oral hygiene: No service: No Current occupational status: unemployed Cognitive needs: Yes Hearing needs: No Vision needs: No Meds Allergies Allergy/AdvReac Type Severity Reaction Status Date / Time No Known Drug Allergies Allergy Unknown none Verified 05/21/24 14:46 seafood Allergy Anaphylaxis Verified 05/21/24 14:46 Home Medications ?Medication ?Instructions ?Recorded ?Confirmed ?Last Taken ?Type clonazepam 0.5 mg tablet 0.5 mg PO DAILY PRN Anxiety 07/06/20 06/20/24 Unknown History clonazepam 1 mg tablet 1 mg PO BEDTIME PRN Anxiety 07/06/20 06/20/24 Unknown History citalopram 10 mg tablet 10 mg PO DAILY 09/17/20 06/20/24 07/04/24 History trazodone 100 mg tablet 100 - 150 mg PO BEDTIME PRN 03/21/22 06/20/24 Unknown History Insomnia aripiprazole 5 mg tablet 5 mg PO DAILY 05/06/24 06/20/24 07/04/24 History Exam Airway Mallampati Class: II TM Dist: >3cm Neck ROM: Full Heart: rrr Lungs: cta Assessment and Plan Assessment Anesthesia Assessment: Anesthesia Plan Discussed Final Anesthetic Review Family History of Problems with Anesthesia: No History of Problems with Anesthesia: No NPO: Yes ASA Class: III Final Preanesthetic Review: No Changes in Pt Med Stat, Meds/Allgs Chart Reviewed, Consent Obtained/Reviewed and Anes Risks/Benef Reviewed Patient Risk: Intermediate Procedure Risk: Low Anesthetic Plan Anesthetic Plan: GA Disposition: Standard PACU
[2024-07-04] VITALS (8 sets, daily range): BP systolic 98–126; BP diastolic 56–86; PULSE 63–88; RESP 12–18; TEMP 36.1–36.6; O2SAT 93–97
[2024-07-04] MEDS: Lactated Ringers 1,000 ML 100 ML IVCONT (08:46)
--- NOTE | 2024-07-04 09:06 | MHC.SHP ---
Pre-Procedural Eval Section A - 24 Hr Update-Section A only Date of Service: 07/04/24 Section B - Complete if H&P > 30 days Chief Complaint: Second degree hemorrhoids Details of Present Illness: has hemorrhoids with prolapse, pain, bleeding Relevant Social History: None Present Medications: see Short Stay Collaborative assessment Medical History: Significant History (obesity, radiculopathy, depression/ anxiety, fibromyalgia, asthma) Allergies: Allergies Allergy/AdvReac Type Severity Reaction Status Date / Time No Known Drug Allergies Allergy Unknown none Verified 05/21/24 14:46 seafood Allergy Anaphylaxis Verified 05/21/24 14:46 Review of Systems Sugical H&P ROS: Negative: Constitution, Cardiovascular, Respiratory and Gastrointestinal Exam Surgical H&P Exam: Normal: Heart, Normal: Lungs and Normal: Abdomen Exam Comment: hemorrhoids on left and right Plan Diagnosis/Plan: Unchanged I have reviewed the history and physical and performed a pertinent physical examination on my patient. No changes have occurred unless specified. Time Spent With Patient Time: Total time managing care of this patient today ____ minutes.
--- NOTE | 2024-07-04 10:20 | P.OP_ITS ---
Operative Note Operative Note Date of Service: 07/04/24 Narrative: Preop diagnosis: Internal and external hemorrhoids with bleeding and prolapse Postop diagnosis: The same Procedure: Exam under anesthesia hemorrhoidectomy x2 columns Surgeon: Hugo Springer MD The patient is a 44-year-old male with chronic complaints of pain, bleeding, prolapse and discomfort with his hemorrhoids. He understood the technique of hemorrhoidectomy. He was aware of the risks, benefits, and alternatives. He was brought to the operating room. He was placed in prone elias-knife position under general anesthesia via endotracheal tube. The buttocks were retracted with wide tape laterally. The perianal area was prepped and draped in the usual sterile fashion. A surgical time-out was done. The patient received Cefotan 2 g IV preoperatively I infiltrated the perianal area with lidocaine 1%. There was note of external hemorrhoids on both the left and right side. I inserted the Xavier Wahl retractor. I examined the anal canal circumferentially. Again this hemorrhoidal columns were noted and were a mix of internal external hemorrhoids. There were no other lesions. There was no fissure or ulceration. I applied a Akins grasper at the hemorrhoidal column on the left and retr acted this out into the field. I made a [id number] stitch at its pedicle past the dentate line using a chromic 3-0. I made an incision around this hemorrhoidal column to the perianal skin with a blade 15. I excised this hemorrhoidal column above the plane of the sphincters using scissors along this incision. I closed the incision with a running chromic 3-0 stitch with additional hemostatic [id number] sutures placed for oozing areas I duplicated the same procedure on the hemorrhoidal column on the right. Again I applied a Akins grasper to retract this out the field. I made a [id number] stitch at the pedicle and incision around this the perianal skin. I excised this hemorrhoidal column above the plane of the sphincters along this incision I closed the incision with a running chromic 3-0 stitch. Additional hemostatic sutures were placed Once hemostasis was confirmed, I infiltrated the perianal area with Marcaine 0.5% for postop analgesia. Dressings were applied. The procedure was completed The patient tolerated the procedure well. There were no immediate complications. Initial and final counts of sponges and instruments were correct. Estimated blood loss was about 40 cc. The patient was extubated without difficulty and transferred to the recovery room with stable vital signs
[2024-07-04] MEDS: fentaNYL citrate/PF 100 MCG/2 ML VIAL 50 MCG IVPUSH (10:53)
[2024-07-04] MEDS: oxyCODONE HCl Immed Release 5 MG TABLET PO (11:35)
== END 2024-07-04 12:04 | disposition home or self-care (01) ==
PROVIDERS: PCP Internal Medicine; Visit Provider Surgery
PROC: (CPT 46260; principal; 2024-07-04 10:20)
DX: K64.1 Second degree hemorrhoids (principal); K64.4 Residual hemorrhoidal skin tags; K62.5 Hemorrhage of anus and rectum; K59.00 Constipation, unspecified; K21.9 Gastro-esophageal reflux disease without esophagitis; E78.2 Mixed hyperlipidemia; M79.7 Fibromyalgia; J45.909 Unspecified asthma, uncomplicated; F33.0 Major depressive disorder, recurrent, mild; F41.1 Generalized anxiety disorder; Z79.1 Long term (current) use of non-steroidal anti-inflammatories (NSAID); Z79.899 Other long term (current) drug therapy; Z98.890 Other specified postprocedural states; Z56.0 Unemployment, unspecified
CPT/HCPCS: 46260; 88304; J1100; J2003; J2250; J2405; J2704; J2795; J3010

== ENCOUNTER → 2024-07-04 08:00 | Outpatient (BNV) | payer MEDICARE, MEDICAID, SELFPAY | PROVIDERS: PCP Internal Medicine; Visit Provider Surgery | DX: K64.8 Other hemorrhoids (principal) | CPT/HCPCS: 46260 ==

== ENCOUNTER 2024-07-10 09:49 | Outpatient (AMB) | payer MEDICARE, MEDICAID, SELFPAY ==
[2024-07-10 09:52] VITALS: BP 139/94; PULSE 64; BMI 37.1
--- NOTE | 2024-07-10 09:52 | A.OFFVIS_ITS ---
Vital Signs 07/10/24 09:52 Height 5 ft 3 in Weight 209 lb 7.026 oz BMI 37.1 BP 139/94 H Blood Pressure Location Lt brachial Position Sitting Pulse 64 Intake Visit Reasons: 8 weeks eval protonix, roids Intake Note: Guru returns to in office follow up to evaluate medications. CC: Patient s/p hemorrhoidectomy 07/04/[address] Springer. Patient c/o pain from surgery and states that he is taking Senna to help with BMs. 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 Accompanied by: Self / Same As Patient Allergies No Known Drug Allergies Allergy (Unknown, Verified 07/10/24 09:53) none seafood Allergy (Verified 07/10/24 09:53) Anaphylaxis HPI HPI 8 weeks eval protonix, roids: Details: Assessment & Plan (1) Constipation: Code(s): K59.00 - Constipation, unspecified Category: Medical (2) GERD (gastroesophageal reflux disease): Code(s): K21.9 - Gastro-esophageal reflux disease without esophagitis Category: Medical Qualifiers: Esophagitis presence: esophagitis presence not specified Qualified Code(s): K21.9 - Gastro-esophageal reflux disease without esophagitis Plan Filipino #Felipe Live He says he has been so, so. His roids adn the GERD is bothering him. This despite taking famotidine bid 40mg and in the past omeprazole did not work well for him, so we will progress to pantoprazole 40mg bid. He is using the proctosol cream bid and his stooling is soft. We discuss a referral to the general surgeon to discuss surgery and he agrees. ROv 8 weeks to eval response to protonix Orders: Referrals General Surgery Referral K64.9 - Unspecified hemorrhoids Medications: New pantoprazole (Protonix) 40 mg PO BID 30 days 60 tabs 6RF Refilled dicyclomine 10 - 20 mg (1 - 2 x 10 mg) PO QID 30 days 240 caps 5RF K62.89 - Other specified diseases of anus and rectum hydrocortisone 2.5% (Proctosol HC) BE SURE TO INCLUDE RECTAL APPICATOR!! 1 appl AR BID 30 grams 6RF hemorrhoids K64.9 - Unspecified hemorrhoids Discontinued famotidine (Pepcid) D/c 20mg dose as not controlling sx Discontinued Reason: Doctor's Order 40 mg PO BID 30 days 60 tabs 6RF K21.9 - Gastro-esophageal reflux disease without esophagitis TODAY'S VISIT Filipino #Sherine Live He just had hemorrhoid surgery and he is in a lot of pain/discomfort. He says that oxycodone is not helping it, and he can not even tolerate water on his rectum during showering or I will have tears! I will try ti approach the pain from a different pathway since his opioid is not working for him. A TCA as an adjunct is a possible good trial and I will rx imipramine. (in the future Tramadol may have been a better overall medication for this as it has some neuopathic overlap, but I don't want to increase the MME for overall safety). He continues on his pantoprazole and his dicyclomine. Good for the remainder of GI regimen. ROV 2 weeks [facility] Medical History Testicular pain Arthritis Back pain Sleep apnea Hemorrhoids that prolapse with straining, but retract spontaneously Dyslipidemia Kidney stone Back pain Disorder of kidney and ureter Right flank pain Right upper quadrant abdominal pain Left elbow pain Adult general medical exam CELESTE (generalized anxiety disorder) Mixed hyperlipidemia Mild recurrent major depression Annual physical exam Epididymal mass Lipoma of spermatic cord Left testicular pain Depression with anxiety Fibromyalgia GERD (gastroesophageal reflux disease) Asthma Surgical History H/O hemorrhoidectomy History of testicular surgery History of esophagogastroduodenoscopy (EGD) History of left inguinal hernia repair Family History Maternal Grandfather History of lung cancer Paternal Uncle History of prostate cancer Father Asthma HTN (hypertension) Hx of CABG Mother Depression Other CVD (cardiovascular disease) Social History Housing: Apartment Are you a primary manager care management to a significant other at home: No Do you presently have visiting nurse or other home services: Yes Alcohol intake: former Patient Tobacco Use Status: Never used Tobacco e-Cigarette/Vaping Use: Never Used Second Hand Smoke Exposure: No Advance Directives Date on File: 07/19/20 service: No Current occupational status: unemployed Cognitive needs: Yes Hearing needs: No Vision needs: No Review of Systems Const Denies fatigue, Denies fever(s), Denies night sweats, Denies poor appetite and Denies weight loss ENT Reports Normal hearing present, Denies dental pain, Denies dysphagia, Denies hearing loss, Denies mouth pain, Denies odynophagia, Denies throat swelling, Denies tongue swelling and Reports other (Dentition adequate) Card Reports no additional complaints Resp Reports no additional complaints GI Details: Rectal pain after hemorrhoidectomy Denies abdominal pain, Denies melena, Denies bloating, Denies hematochezia, Denies constipation, Reports GI cramping, Denies dysphagia, Denies excessive flatus, Denies early satiety, Reports heartburn, Denies diarrhea, Denies nausea, Denies odynophagia, Denies vomiting and Denies hematemesis Skin/Breast Denies pruritus, Denies lesions, Denies rash and Denies jaundice Neuro Reports Normal hearing present and Denies Abnormal speech present Endo Denies fatigue Aller/Immun Denies throat swelling and Denies tongue swelling Physical Exam Vital Signs: Last Vital Signs Pulse 64 07/10/24 09:52 BP 139/94 H 07/10/24 09:52 BMI result Body Mass Index 37.1 Const General: cooperative, no acute distress, well developed and well groomed Nutritional Appearance: well nourished and obese Orientation/consciousness: oriented to person, oriented to place and oriented to time Limitations: language barrier HEENT Head: Yes normocephalic and Yes atraumatic Eyes General: appearance normal, both eyes and all related structures Pupils: Equal, round and reactive pupils present Neck Neck: Yes normal visual inspection and Yes no lymphadenopathy Thyroid: Thyroid normal Resp Effort & Inspection: normal respiratory effort and able to speak in complete sentences Auscultation: clear to auscultation bilaterally Cardio Rate: regular rate Rhythm: regular rhythm Heart sounds: Normal, physiologic split S2 sound present Peripheral pulses: radial pulses present and posterior tibial pulses present GI Inspection: No distended, No Abdominal panniculus present and Yes obesity Palpation (GI): Soft to palpation, nontender, no guarding, not rigid and No he patosplenomegaly present Percussion: Yes normal to percussion Auscultation: normal bowel sounds Rectal Exam - Male: Yes tenderness and Yes other (single suture noted at about 5 oclock with red line but not sign of exudate) Skin General skin exam: no rashes or lesions noted, turgor normal, skin not dry, no jaundice, No spider nevi and no striae Rashes: no rashes Nails: normal Neuro General: oriented to person, oriented to place and oriented to time Cranial nerves: Yes Equal, round and reactive pupils present and Yes Normal hearing present Speech: No Abnormal speech present Extrem General: Yes normal to inspection, No clubbing, No cyanosis and No edema Psych Appearance: grossly normal and well kempt Mental Status: mental status grossly normal Speech and movement: Normal speech and movement present Affect: normal affect Attitude: cooperative Thought process: Normal thought process present and not confabulating Thought content: Normal thought content present Insight: Limited insight present (Psych) Judgement: Limited judgement present (Psych) Assessment & Plan Assessment & Plan (1) Constipation: Code(s): K59.00 - Constipation, unspecified Category: Medical (2) GERD (gastroesophageal reflux disease): Code(s): K21.9 - Gastro-esophageal reflux disease without esophagitis Category: Medical Qualifiers: Esophagitis presence: esophagitis presence not specified Qualified Code(s): K21.9 - Gastro-esophageal reflux disease without esophagitis Plan Filipino #Sherine Live He just had hemorrhoid surgery and he is in a lot of pain/discomfort. He says that oxycodone is not helping it, and he can not even tolerate water on his rectum during showering or I will have tears! I will try ti approach the pain from a different pathway since his opioid is not working for him. A TCA as an adjunct is a possible good trial and I will rx imipramine. (in the future Tramadol may have been a better overall medication for this as it has some neuopathic overlap, but I don't want to increase the MME for overall safety). He continues on his pantoprazole and his dicyclomine. Good for the remainder of GI regimen. ROV 2 weeks Medications: New imipramine HCl 20 mg (2 x 10 mg) PO BEDTIME 60 tabs 1RF 30 days Refilled pantoprazole (Protonix) 40 mg PO BID 60 tabs 6RF 30 days sennosides (senna) 17.2 mg (2 x 8.6 mg) PO BEDTIME 60 tabs 6RF constipation K59.00 - Constipation, unspecified docusate sodium (Colace) 100 mg PO BID 60 caps 2RF Coding Level of Care Code Complex EM visit Add On G2211 Diagnoses Constipation K59.00 Gastroesophageal reflux disease, unspecified whether esophagitis present K21.9 Esophagitis presence: esophagitis presence not specified
== END 2024-07-10 10:57 | disposition home or self-care (01) ==
PROVIDERS: PCP Internal Medicine; Visit Provider Nurse Practitioner
DX: K59.00 Constipation, unspecified (principal); K21.9 Gastro-esophageal reflux disease without esophagitis
CPT/HCPCS: 99213; G2211

== ENCOUNTER → 2024-07-10 09:49 | Outpatient (BNVA) | payer MEDICARE, MEDICAID, SELFPAY | PROVIDERS: PCP Internal Medicine; Visit Provider Nurse Practitioner | DX: K59.00 Constipation, unspecified (principal); K21.9 Gastro-esophageal reflux disease without esophagitis; Z51.81 Encounter for therapeutic drug level monitoring; Z98.890 Other specified postprocedural states; Z79.899 Other long term (current) drug therapy | CPT/HCPCS: 99212 ==

== ENCOUNTER 2024-07-17 10:32 | Outpatient (AMB) | payer MEDICARE, MEDICAID, SELFPAY ==
--- NOTE | 2024-07-17 10:33 | A.OFFVIS_ITS ---
Intake Visit Reasons: S/P EUA, hemorrhoidectomy Allergies No Known Drug Allergies Allergy (Unknown, Verified 07/10/24 09:53) none seafood Allergy (Verified 07/10/24 09:53) Anaphylaxis HPI HPI S/P EUA, hemorrhoidectomy: Details: He is here for postop visit. He had undergone hemorrhoidectomy for 2 columns last 07/04/2024. He tolerated procedure well. He currently denies significant complaints and is feeling better with regards to the postop pain. He does admit to having severe pain in the 1st few days postoperatively. [facility] Medical History Testicular pain Arthritis Back pain Sleep apnea Hemorrhoids that prolapse with straining, but retract spontaneously Dyslipidemia Kidney stone Back pain Disorder of kidney and ureter Right flank pain Right upper quadrant abdominal pain Left elbow pain Adult general medical exam CELESTE (generalized anxiety disorder) Mixed hyperlipidemia Mild recurrent major depression Annual physical exam Epididymal mass Lipoma of spermatic cord Left testicular pain Depression with anxiety Fibromyalgia GERD (gastroesophageal reflux disease) Asthma Surgical History H/O hemorrhoidectomy History of testicular surgery History of esophagogastroduodenoscopy (EGD) History of left inguinal hernia repair Family History Maternal Grandfather History of lung cancer Paternal Uncle History of prostate cancer Father Asthma HTN (hypertension) Hx of CABG Mother Depression Other CVD (cardiovascular disease) Social History Housing: Apartment Are you a primary rn homecare to a significant other at home: No Do you presently have visiting nurse or other home services: Yes Alcohol intake: former Patient Tobacco Use Status: Never used Tobacco e-Cigarette/Vaping Use: Never Used Second Hand Smoke Exposure: No Advance Directives Date on File: 07/19/20 service: No Current occupational status: unemployed Cognitive needs: Yes Hearing needs: No Vision needs: No Review of Systems Const Denies chills and Denies fever(s) GI Denies hematochezia Physical Exam Const Other: Walks with a cane General: comfortable and no acute distress Resp Effort & Inspection: normal respiratory effort GI Other: Rectal exam shows the hemorrhoidectomy sites to be healing well although with some edema, no bleeding, no infection Assessment & Plan Assessment & Plan (1) Hemorrhoids that prolapse with straining, but retract spontaneously: Code(s): K64.1 - Second degree hemorrhoids Category: Medical Plan: Status post hemorrhoidectomy x2 columns. He is doing well postoperatively. His incisions are healing well. His path report shows hemorrhoidal tissue I advised him to continue to do hot Sitz baths or warm soaks to the area. He is to avoid straining and constipation. I am going to send him a prescription for Metamucil as he says he has watery stools. I will see him again in about a month for another postop visit. Coding Level of Care Code Global (34006) Diagnoses Hemorrhoids that prolapse with straining, but retract spontaneously K64.1
== END 2024-07-17 10:46 | disposition home or self-care (01) ==
PROVIDERS: PCP Internal Medicine; Visit Provider Surgery
DX: K64.1 Second degree hemorrhoids (principal)
CPT/HCPCS: 99024

== ENCOUNTER → 2024-07-17 10:32 | Outpatient (BNVA) | payer MEDICARE, MEDICAID, SELFPAY | PROVIDERS: PCP Internal Medicine; Visit Provider Surgery | DX: K64.1 Second degree hemorrhoids (principal) | CPT/HCPCS: 99212 ==

== ENCOUNTER 2024-07-23 10:30 | Outpatient (AMB) | payer MEDICARE, MEDICAID, SELFPAY ==
--- NOTE | 2024-07-23 10:34 | MHC.OFFVIS ---
Vital Signs 07/23/24 10:47 Height 5 ft 3 in Weight 201 lb 15.095 oz BMI 35.8 BP 125/87 Blood Pressure Location Rt brachial Position Sitting Pulse 82 Intake Visit Reasons: Follow up constipation Intake Note: Guru presents to in office follow up of constipation. CC: Patient reports that his is having more solid BMs and feeling better from hemorrhoidectomy pain. 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 Accompanied by: Self / Same As Patient Allergies No Known Drug Allergies Allergy (Unknown, Verified 07/23/24 10:52) none seafood Allergy (Verified 07/23/24 10:52) Anaphylaxis HPI HPI Follow up constipation: Details: Assessment & Plan (1) Constipation: Code(s): K59.00 - Constipation, unspecified Category: Medical (2) GERD (gastroesophageal reflux disease): Code(s): K21.9 - Gastro-esophageal reflux disease without esophagitis Category: Medical Qualifiers: Esophagitis presence: esophagitis presence not specified Qualified Code(s): K21.9 - Gastro-esophageal reflux disease without esophagitis Plan Malay #Sherine Live He just had hemorrhoid surgery and he is in a lot of pain/discomfort. He says that oxycodone is not helping it, and he can not even tolerate water on his rectum during showering or I will have tears! I will try ti approach the pain from a different pathway since his opioid is not working for him. A TCA as an adjunct is a possible good trial and I will rx imipramine. (in the future Tramadol may have been a better overall medication for this as it has some neuopathic overlap, but I don't want to increase the MME for overall safety). He continues on his pantoprazole and his dicyclomine. Good for the remainder of GI regimen. ROV 2 weeks Medications: New imipramine HCl 20 mg (2 x 10 mg) PO BEDTIME 60 tabs 1RF 30 days Refilled pantoprazole (Protonix) 40 mg PO BID 60 tabs 6RF 30 days sennosides (senna) 17.2 mg (2 x 8.6 mg) PO BEDTIME 60 tabs 6RF constipation K59.00 - Constipation, unspecified docusate sodium (Colace) 100 mg PO BID 60 caps 2RF TODAY'S VISIT Malay #[id number] His pain control is greatly improved with the imipramine s/p hemorrhoid surgery. He is happy with his. We will continue this and once he is healed we can discontinue the medication. He is still following with the surgeon and has one more follow up visit. He continues on his pantoprazole and his dicyclomine. Return office visit in 3 months [facility] Medical History Testicular pain Arthritis Back pain Sleep apnea Hemorrhoids that prolapse with straining, but retract spontaneously Dyslipidemia Kidney stone Back pain Disorder of kidney and ureter Right flank pain Right upper quadrant abdominal pain Left elbow pain Adult general medical exam CELESTE (generalized anxiety disorder) Mixed hyperlipidemia Mild recurrent major depression Annual physical exam Epididymal mass Lipoma of spermatic cord Left testicular pain Depression with anxiety Fibromyalgia GERD (gastroesophageal reflux disease) Asthma Surgical History H/O hemorrhoidectomy History of testicular surgery History of esophagogastroduodenoscopy (EGD) History of left inguinal hernia repair Family History Maternal Grandfather History of lung cancer Paternal Uncle History of prostate cancer Father Asthma HTN (hypertension) Hx of CABG Mother Depression Other CVD (cardiovascular disease) Social History Housing: Apartment Are you a primary acute care occupational therapist to a significant other at home: No Do you presently have visiting nurse or other home services: Yes Alcohol intake: former Patient Tobacco Use Status: Never used Tobacco e-Cigarette/Vaping Use: Never Used Second Hand Smoke Exposure: No Advance Directives Date on File: 07/19/20 service: No Current occupational status: unemployed Cognitive needs: Yes Hearing needs: No Vision needs: No Review of Systems Const Denies fatigue, Denies fever(s), Denies night sweats, Denies poor appetite and Denies weight loss ENT Reports Normal hearing present, Denies dental pain, Denies dysphagia, Denies hearing loss, Denies mouth pain, Denies odynophagia, Denies throat swelling, Denies tongue swelling and Reports other (Dentition adequate) Card Reports no additional complaints Resp Reports no additional complaints GI Details: Denies abdominal pain, Denies melena, Denies bloating, Denies hematochezia, Reports constipation, Denies GI cramping, Denies dysphagia, Denies excessive flatus, Denies early satiety, Reports heartburn, Denies diarrhea, Denies nausea, Denies odynophagia, Denies vomiting, Denies hematemesis and Reports other (Rectal pain) Skin/Breast Denies pruritus, Denies lesions, Denies rash and Denies jaundice Neuro Reports Normal hearing present and Denies Abnormal speech present Endo Denies fatigue Aller/Immun Denies throat swelling and Denies tongue swelling Physical Exam Vital Signs: Last Vital Signs Pulse 82 07/23/24 10:47 BP 125/87 07/23/24 10:47 BMI result Body Mass Index 35.8 Const General: cooperative, no acute distress, well developed and well groomed Nutritional Appearance: well nourished and obese centrally obese Orientation/consciousness: oriented to person, oriented to place and oriented to time Limitations: language barrier HEENT Head: Yes normocephalic and Yes atraumatic Eyes General: appearance normal, both eyes and all related structures Pupils: Equal, round and reactive pupils present Neck Neck: Yes normal visual inspection and Yes no lymphadenopathy Thyroid: Thyroid normal Resp Effort & Inspection: normal respiratory effort and able to speak in complete sentences Auscultation: clear to auscultation bilaterally Cardio Rate: regular rate Rhythm: regular rhythm Heart sounds: Normal, physiologic split S2 sound present Peripheral pulses: radial pulses present and posterior tibial pulses present GI Inspection: No distended, No Abdominal panniculus present and Yes obesity Palpation (GI): Soft to palpation, nontender, no guarding, not rigid and No hepatosplenomegaly present Percussion: Yes normal to percussion Auscultation: normal bowel sounds Rectal Exam - Male: Yes deferred Skin General skin exam: no rashes or lesions noted, turgor normal, skin not dry, no jaundice, No spider nevi and no striae Rashes: no rashes Nails: normal Neuro General: oriented to person, oriented to place and oriented to time Cranial nerves: Yes Equal, round and reactive pupils present and Yes Normal hearing present Speech: No Abnormal speech present Extrem General: Yes normal to inspection, No clubbing, No cyanosis and No edema Psych Appearance: grossly normal and well kempt Mental Status: mental status grossly normal Speech and movement: Normal speech and movement present Affect: normal affect Attitude: cooperative Thought process: Normal thought process present and not confabulating Thought content: Normal thought content present Insight: Limited insight present (Psych) Judgement: Limited judgement present (Psych) Assessment & Plan Assessment & Plan (1) GERD (gastroesophageal reflux disease): Code(s): K21.9 - Gastro-esophageal reflux disease without esophagitis Category: Medical Qualifiers: Esophagitis presence: esophagitis presence not specified Qualified Code(s): K21.9 - Gastro-esophageal reflux disease without esophagitis (2) Constipation: Code(s): K59.00 - Constipation, unspecified Category: Medical (3) Abdominal bloating: Code(s): R14.0 - Abdominal distension (gaseous) Category: Medical Plan Malay #[id number] His pain control is greatly improved with the imipramine s/p hemorrhoid surgery. He is happy with his. We will continue this and once he is healed we can discontinue the medication. He is still following with the surgeon and has one more follow up visit. He continues on his pantoprazole and his dicyclomine. Return office visit in 3 months Coding Level of Care Code Est Pt Level 3 (13428) Diagnoses Gastroesophageal reflux disease, unspecified whether esophagitis present K21.9 Esophagitis presence: esophagitis presence not specified Constipation K59.00 Abdominal bloating R14.0
[2024-07-23 10:47] VITALS: BP 125/87; PULSE 82; BMI 35.8
== END 2024-07-23 11:37 | disposition home or self-care (01) ==
PROVIDERS: PCP Internal Medicine; Visit Provider Nurse Practitioner
DX: K21.9 Gastro-esophageal reflux disease without esophagitis (principal); K59.00 Constipation, unspecified; R14.0 Abdominal distension (gaseous)
CPT/HCPCS: 99213

== ENCOUNTER → 2024-07-23 10:30 | Outpatient (BNVA) | payer MEDICARE, MEDICAID, SELFPAY | PROVIDERS: PCP Internal Medicine; Visit Provider Nurse Practitioner | DX: K21.9 Gastro-esophageal reflux disease without esophagitis (principal); K59.00 Constipation, unspecified; R14.0 Abdominal distension (gaseous) | CPT/HCPCS: 99212 ==

== ENCOUNTER → 2024-08-14 09:55 | Outpatient (BNVA) | payer MEDICARE, MEDICAID, SELFPAY | PROVIDERS: PCP Internal Medicine; Visit Provider Surgery ==

== ENCOUNTER 2024-08-20 09:55 | Outpatient (AMB) | payer MEDICARE, MEDICAID, SELFPAY ==
--- NOTE | 2024-08-20 10:04 | MHC.OFFVIS ---
Vital Signs 08/20/24 10:06 Height 5 ft 3 in Weight 201 lb 15.095 oz BMI 35.8 Intake Visit Reasons: one month follow-up s/p EUA, hemorrhoidectomy Intake Note: This patient presents for one month follow-up assessment status post EUA, hemorrhoidectomy. Pt c/o; reports no complaints. 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 He denies any new complaints.He continues to do well. [facility] Medical History Testicular pain Arthritis Back pain Sleep apnea Hemorrhoids that prolapse with straining, but retract spontaneously Dyslipidemia Kidney stone Back pain Disorder of kidney and ureter Right flank pain Right upper quadrant abdominal pain Left elbow pain Adult general medical exam CELESTE (generalized anxiety disorder) Mixed hyperlipidemia Mild recurrent major depression Annual physical exam Epididymal mass Lipoma of spermatic cord Left testicular pain Depression with anxiety Fibromyalgia GERD (gastroesophageal reflux disease) Asthma Surgical History H/O hemorrhoidectomy History of testicular surgery History of esophagogastroduodenoscopy (EGD) History of left inguinal hernia repair Family History Maternal Grandfather History of lung cancer Paternal Uncle History of prostate cancer Father Asthma HTN (hypertension) Hx of CABG Mother Depression Other CVD (cardiovascular disease) Social History Housing: Apartment Are you a primary home care giver to a significant other at home: No Do you presently have visiting nurse or other home services: Yes Alcohol intake: former Patient Tobacco Use Status: Never used Tobacco e-Cigarette/Vaping Use: Never Used Second Hand Smoke Exposure: No Advance Directives Date on File: 07/19/20 service: No Current occupational status: unemployed Cognitive needs: Yes Hearing needs: No Vision needs: No Review of Systems Const Denies chills and Denies fever(s) GI Denies hematochezia Physical Exam Vital Signs: BMI result Body Mass Index 35.8 Const General: comfortable and no acute distress GI Other: Rectal exam shows hemorrhoidectomy sites to be well healed, no discharge, no infection Assessment & Plan Assessment & Plan (1) Hemorrhoids that prolapse with straining, but retract spontaneously: Code(s): K64.1 - Second degree hemorrhoids Category: Medical Plan: Status post hemorrhoidectomy. His surgical sites are well healed. He feels well overall. He denies any significant complaints. He can therefore follow up on a p.r.n. basis Coding Level of Care Code Global (83450) Diagnoses Hemorrhoids that prolapse with straining, but retract spontaneously K64.1
[2024-08-20 10:06] VITALS: BMI 35.8
== END 2024-08-20 10:10 | disposition home or self-care (01) ==
PROVIDERS: PCP Internal Medicine; Visit Provider Surgery
DX: K64.1 Second degree hemorrhoids (principal)
CPT/HCPCS: 99024

== ENCOUNTER → 2024-08-20 09:55 | Outpatient (BNVA) | payer MEDICARE, MEDICAID, SELFPAY | PROVIDERS: PCP Internal Medicine; Visit Provider Surgery | DX: K64.1 Second degree hemorrhoids (principal); Z98.890 Other specified postprocedural states | CPT/HCPCS: 99212 ==

== ENCOUNTER 2024-10-29 08:36 | Outpatient (AMB) | payer MEDICARE, MEDICAID, SELFPAY ==
--- NOTE | 2024-10-29 08:48 | AM.OFFVISMDC ---
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 Services: [employer] Present [employer] Name: Sherine Guy MD Information Interpreted: non-clinical & clinical Accompanied by: Self / Same As Patient Allergies No Known Drug Allergies Allergy (Unknown, Verified 10/29/24 09:14) none seafood Allergy (Verified 10/29/24 09:14) Anaphylaxis Medication List - Last Reconciled 10/29/24 by Sherine Guy MD aripiprazole 5 mg PO DAILY atorvastatin 80 mg PO DAILY 90 days citalopram 10 mg PO DAILY clonazepam 1 mg PO BEDTIME PRN clonazepam 0.5 mg PO DAILY PRN dicyclomine 10 - 20 mg (1 - 2 x 10 mg) PO QID 30 days docusate sodium (Colace) 100 mg PO BID gabapentin 800 mg PO BID 30 days hydrocortisone 2.5% (Proctosol HC) 1 appl [place] BID imipramine HCl 20 mg (2 x 10 mg) PO BEDTIME 30 days meloxicam 15 mg PO DAILY PRN 30 days methocarbamol 750 mg PO BID PRN 30 days naproxen (Naprosyn) 500 mg PO Q12H PRN oxycodone-acetaminophen 5-325 mg (Percocet) 1 tab PO Q4-6H PRN pantoprazole (Protonix) 40 mg PO BID 30 days sennosides (senna) 17.2 mg (2 x 8.6 mg) PO BEDTIME tadalafil 5 mg PO DAILY 90 days trazodone 100 - 150 mg PO BEDTIME PRN Ventolin HFA 90 mcg/actuation (albuterol sulfate) 2 puffs inhalation Q6H PRN 30 days NS HPI HPI Comments History of Present Illness Details The patient is a 44-year-old male presenting for medicare wellnews exam. He is currently taking several medications, including Abilify, atorvastatin, citalopram for depression, pantoprazole for gastroesophageal reflux disease, and tadalafil for erectile dysfunction. Additionally, he uses a trazodone for insomnia and an asthma inhaler. He is not allergic to any medications reported but does have a documented allergy to seafood. He reported a past surgical history of hemorrhoidectomy performed last year and previously underwent an endoscopy in 2018. There is a family history of hypertension, as noted in his father, and depression in his mother. The patient requires assistance with bathing and any activity involving his back and legs, indicating limited physical functionality. [facility] Medical History Testicular pain Arthritis Back pain Sleep apnea Hemorrhoids that prolapse with straining, but retract spontaneously Dyslipidemia Kidney stone Back pain Disorder of kidney and ureter Right flank pain Right upper quadrant abdominal pain Left elbow pain Adult general medical exam CELESTE (generalized anxiety disorder) Mixed hyperlipidemia Mild recurrent major depression Annual physical exam Epididymal mass Lipoma of spermatic cord Left testicular pain Depression with anxiety Fibromyalgia GERD (gastroesophageal reflux disease) Asthma Surgical History H/O hemorrhoidectomy History of testicular surgery History of esophagogastroduodenoscopy (EGD) History of left inguinal hernia repair Family History Maternal Grandfather History of lung cancer Paternal Uncle History of prostate cancer Father Asthma HTN (hypertension) Hx of CABG Mother Depression Other CVD (cardiovascular disease) Social History Housing: Apartment Are you a primary acute care registered nurse to a significant other at home: No Do you presently have visiting nurse or other home services: Yes Alcohol intake: former Patient Tobacco Use Status: Never used Tobacco e-Cigarette/Vaping Use: Never Used Second Hand Smoke Exposure: No Advance Directives Date on File: 07/19/20 service: No Current occupational status: unemployed Cognitive needs: Yes Hearing needs: No Vision needs: No Questionnaire Medicare Wellness Checkup What gender do you identify with?: male During the past 4 weeks, how much have you been bothered by emotional problems such as feeling anxious, depressed, irritable, sad or downhearted, and blue?: extremely During the past 4 weeks, has your physical & emotional health limited your social activities with family, friends, neighbors, or groups?: slightly During the past 4 weeks, how much bodily pain have you generally had?: severe pain During the past 4 weeks, was someone available to help you if you needed & wanted help?: yes, as much as I wanted During the past 4 weeks, what was the hardest physical activity you could do for at least 2 minutes?: moderate Can you get to places out of walking distance without help? (For eg., can you travel alone on buses, taxis or drive your car?): No Can you go shopping for groceries or clothes without someone's help?: No Can you prepare your own meals?: No Can you do your housework without help?: No Because of any health problems, do you need the help of another person with your personal care needs such as eating, bathing, dressing or getting around the house?: Yes Can you handle your own money without help?: Yes During the past 4 weeks, how would you rate your health in general?: fair During the past 4 weeks how have things been going for you?: pretty bad Are you having difficulties driving your car?: sometimes Do you always fasten your seat belt when you are in a car?: yes, usually During past 4 weeks, have you been bothered by the following: never: Sexual problems?, Trouble eating well?, Teeth or denture problems? and Problems using the telephone? and sometimes: Falling or dizzy when standing up and Tiredness or fatigue? Have you fallen 2 or more times in the past year?: No Are you afraid of falling?: Yes Are you a smoker?: no During the past 4 weeks, how many drinks of wine, beer, or other alcoholic beverages did you have?: no alcohol at all Do you exercise for about 20 minutes 3 or more times a week?: yes, some of the time Have you been given information to help with the following?: yes: Hazards in your house that might hurt you? and yes: Keeping track of your medications? How often do you have trouble taking medicines the way you have been told to take them?: I always take medicine as prescribed How confident are you that you can control & manage most of your health problems?: very confident What is your race?: or origin or descent Mini Mental State Exam (MMSE) Orientation What is the (year) (season) (date) (day) (month)?: year, season, date, day and month Where are we (state) (county) (town or city) (hospital) (floor)?: state, county, town or city, hospital/clinic and floor Registration Name of 3 unrelated objects clearly and slowly, then ask patient to repeat all 3 of them. (1st repeat determines score. Make sure they can repeat all three): object 1, object 2 and object 3 Attention & Calculation (CHOOSE ONE) Spell WORLD backwards (DLROW): 5 letters Recall Ask patient to repeat the 3 items from question #3.: object 1 and object 2 Language Show patient a wristwatch & ask what it is. Repeat for pencil.: watch and pencil Ask the patient to repeat the phrase 'No ifs, ands, or buts' after you.: correct Ask the patient to 'take a piece of paper with their right hand' 'fold paper in half' 'place paper on floor': take paper in right hand, fold paper in half and place paper on floor Print the sentence 'CLOSE YOUR EYES' on a piece. If patient actually closes eyes then score.: followed written direction Give patient a blank piece of paper & ask to write a sentence. Score if it contains a noun & verb.: sentence contains subject and verb Ask patient to copy figure of intersecting pentagons exactly. Score if all 10 angles & 2 intersects are included.: all 10 angles present & 2 are intersected Score Score: 29 Activity of Daily Living Bathing - sponge bath, tub bath or shower: receives help in bathing only one body part (such as back or leg) Dressing - getting clothes from closets & drawers, including inner/outer garments & fasteners.: receives help getting clothes or getting dressed, or stays undressed Toileting - going to the 'toilet room' for urine/bowel elimination & cleaning self/arranging clothes: receives help going to toilet room, cleaning self or arranging clothes Transfer: moves in & out of bed or chair with help Continence: controls urination/bowel movements completely by self Feeding: feeds self without help Total Score: 1 Information obtained from: patient Using telephone: independent Traveling: needs assistance Shopping: needs assistance Preparing meals: independent Housework: dependent Taking medicine: needs assistance Managing money: independent PHQ-9 Over the last 2 weeks, how often have you been bothered by any of the following problems? 1. Little interest or pleasure in doing things: more than half the days 2. Feeling down, depressed, or hopeless: more than half the days 3. Trouble falling or staying asleep, or sleeping too much: more than half the days 4. Feeling tired or having little energy: more than half the days 5. Poor appetite or overeating: several days 6. Feeling bad about yourself - or that you are a failure or have let yourself or your family down: not at all 7. Trouble concentrating on things, such as reading the newspaper or watching television: several days 8. Moving or speaking so slowly that other people could have noticed. Or the opposite - being so fidgety or restless that you have been moving around a lot more than usual: not at all 9. 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 Gildardo Flores, Tequila Buitrago, Yo Proctor and colleagues, with an educational kevin from [email or web address]. AUDIT C Alcohol Use Questionnaire (AUDIT-C) 1. How often do you have a drink containing alcohol?: Never Total Score: 0 Score Reviewed/Action Taken: No CELESTE-7 AMB Questionnaire CELESTE-7 Date CELESTE - 7 assessed: 10/29/24 Feeling nervous, anxious, or on edge: 1 = Several days Not being able to stop or control worryin = Not at all Worrying too much about different things: 1 = Several days Trouble relaxin = Not at all Being so restless that it is hard to sit still: 0 = Not at all Becoming easily annoyed or irritable: 0 = Not at all Feeling afraid as if something awful might happen: 0 = Not at all Total CELESTE-7 score (0-4 normal; 5-9 mild; 10-14 moderate; 15-21 severe): 2 Source: Developed by Drs. Gildardo Flores, Tequila Buitrago, Yo Proctor and colleagues, with an educational kevin from [email or web address]. CELESTE-7 Assessment Billing CELESTE-7 Assessment Tool: CELESTE-7 Assessment 79369 Thrive Questionnaire Date Thrive assessed: 10/29/24 I am a: Patient What is your living situation today?: I have a steady place to live Within the past 12 months, did the food you bought not last and you didn't have the money to get more?: Never true Within the past 12 months, did you worry whether your food would run out before you got money to buy more?: Never true Do you have trouble paying for medicines?: No Do you have trouble getting transportation to medical appointments?: No Do you have trouble paying your heating and electricity bill?: No Do you have trouble taking care of your child, family member or friend?: No Do you have trouble with day-to-day activities such as bathing, preparing meals, shopping, managing finances, etc.?: No Are you currently unemployed and looking for a job?: No Are you interested in more education?: No Please select the resources that you would like help with: None Currently or been in a relationship where the following occur: No concerns reported THRIVE Score: 0 Review of Systems Const All systems reviewed & are unremarkable except as noted in HPI and below Card Denies chest pain at rest, Denies chest pain with activity, Denies edema, Denies irregular heart rhythm, Denies claudication, Denies dyspnea, Denies dyspnea on exertion, Denies orthopnea, Denies paroxysmal nocturnal dyspnea and Denies slow heart rate Resp Denies cough, Denies dyspnea and Denies dyspnea on exertion Physical Exam Vital Signs: Last Vital Signs BP 116/80 10/29/24 08:54 BMI result Body Mass Index 33.7 Resp Effort & Inspection: normal respiratory effort Auscultation: clear to auscultation bilaterally Cardio Jugular venous distension: no JVD Rate: regular rate Rhythm: regular rhythm Heart sounds: S1 normal heart sound present and S2 normal heart sound present Neuro Romberg Test: Negative Extrem General: Yes full ROM Office Procedures Flu Questionnaire Does the patient have a severe egg allergy?: No Immunizations Fluarix Triv [id number] (PF) 45 mcg (15 mcg x 3)/0.5 mL IM syringe Performing Provider: Sherine Guy MD [facility] Documented (not given) by: LAYLA Prieto on 10/29/24 08:58 Reason Not Given: Patient Refused Assessment & Plan Assessment & Plan (1) Encounter for Medicare annual wellness exam: Code(s): Z00.00 - Encounter for general adult medical examination without abnormal findings (2) Mild recurrent major depression: Code(s): F33.0 - Major depressive disorder, recurrent, mild Plan - Continue current medications including Abilify, atorvastatin, citalopram, pantoprazole, tadalafil, and trazodone. - Recommended laboratory assessments for cholesterol, blood sugar, and liver function to be conducted with upcoming blood work. - Monitor and manage asthma with inhaler as prescribed. Patient was informed and verbally consented to the use of an ambient scribe for clinic note documentation during this visit. During the consultation, I reviewed the patient's current medication regimen and provided management for his chronic conditions including depression, GERD, erectile dysfunction, insomnia, and asthma. We discussed the importance of maintaining his current treatment plan and ensuring regular follow-ups to monitor the effectiveness of his medications and adjust dosages as necessary. I emphasized the significance of the scheduled laboratory tests in evaluating his cardiovascular and metabolic status. Additionally, we reviewed his family history of hypertension and depression, addressing the necessity of ongoing monitoring and possible genetic predispositions. Orders: Orders Comprehensive [place]. Panel Fast Today R51.9 - Headache, unspecified Influenza [id number] Immunization Today Z23 - Encounter for immunization Lipid Panel Today E78.5 - Hyperlipidemia, unspecified Medications: Refilled gabapentin 800 mg PO BID 30 days 60 tabs 3RF for pain M47.816 - Spondylosis without myelopathy or radiculopathy, lumbar region, M54.17 - Radiculopathy, lumbosacral region Patient Instructions: - Continue all current medications as prescribed - Complete scheduled laboratory work for cholesterol, sugar, and liver function this week or next - Ensure assistance for any physical tasks as needed - Use asthma inhaler as directed - Return for follow-up appointment if experiencing any new or worsening symptoms Quality Reporting (2019) Depression/Bipolar (159/160/161/177) PHQ-9: Total score: 10 Coding Level of Care Code Medicare First (G0438) Diagnoses Encounter for Medicare annual wellness exam Z00.00 Mild recurrent major depression F33.0 Additional Codes CELESTE-7 Assessment Billing - CELESTE-7 Assessment Tool: CELESTE-7 Assessment 03378 ([id number]) PHQ-9 - 80722 - PHQ-9 Billing: Yes ([id number]) Time Spent (min) 35
[2024-10-29 08:54] VITALS: BP 116/80; BMI 33.7
== END 2024-10-29 09:32 | disposition home or self-care (01) ==
PROVIDERS: PCP Internal Medicine; Visit Provider Internal Medicine
DX: Z00.00 Encounter for general adult medical examination without abnormal findings (principal); F33.0 Major depressive disorder, recurrent, mild

== ENCOUNTER → 2024-10-29 08:36 | Outpatient (BNVA) | payer MEDICARE, MEDICAID, SELFPAY | PROVIDERS: PCP Internal Medicine; Visit Provider Internal Medicine | DX: Z00.00 Encounter for general adult medical examination without abnormal findings (principal); M47.816 Spondylosis without myelopathy or radiculopathy, lumbar region; M54.17 Radiculopathy, lumbosacral region; F33.0 Major depressive disorder, recurrent, mild; K21.9 Gastro-esophageal reflux disease without esophagitis; N52.9 Male erectile dysfunction, unspecified; R51.9 Headache, unspecified; E78.5 Hyperlipidemia, unspecified; Z28.21 Immunization not carried out because of patient refusal | CPT/HCPCS: 96127 ==

== ENCOUNTER 2024-12-31 11:40 | Outpatient (AMB) | payer MEDICARE, MEDICAID, SELFPAY ==
--- NOTE | 2024-12-31 11:45 | MHC.OFFVIS ---
Vital Signs 12/31/24 11:46 Height 5 ft 3 in Weight 181 lb 3.52 oz BMI 32.1 BP 123/65 Blood Pressure Location Rt brachial Position Sitting Pulse 78 Intake Visit Reasons: 3 month follow up Allergies No Known Drug Allergies Allergy (Unknown, Verified 10/29/24 09:14) none seafood Allergy (Verified 10/29/24 09:14) Anaphylaxis HPI HPI 3 month follow up: Details: Assessment & Plan (1) GERD (gastroesophageal reflux disease): Code(s): K21.9 - Gastro-esophageal reflux disease without esophagitis Category: Medical Qualifiers: Esophagitis presence: esophagitis presence not specified Qualified Code(s): K21.9 - Gastro-esophageal reflux disease without esophagitis (2) Constipation: Code(s): K59.00 - Constipation, unspecified Category: Medical (3) Abdominal bloating: Code(s): R14.0 - Abdominal distension (gaseous) Category: Medical Plan Setswana #[id number] His pain control is greatly improved with the imipramine s/p hemorrhoid surgery. He is happy with his. We will continue this and once he is healed we can discontinue the medication. He is still following with the surgeon and has one more follow up visit. He continues on his pantoprazole and his dicyclomine. Return office visit in 3 months TODAY'S VISIT Setswana #V Live He continues to take the imipramine, and since he has comorbid IBS I have no problem continuing this although it was originally rx'ed for roids surgery. He also continues on pantoprazole and bentyl. He will be due for 1st scope next year, discuss next OV. ROV 6 mos. [facility] Medical History (Updated 12/31/24 @ 12:26 by KRISTINA Cheung) Encounter for Medicare annual wellness exam Testicular pain Arthritis Back pain Sleep apnea Hemorrhoids that prolapse with straining, but retract spontaneously Dyslipidemia Kidney stone Back pain Disorder of kidney and ureter Right flank pain Right upper quadrant abdominal pain Left elbow pain Adult general medical exam CELESTE (generalized anxiety disorder) Mixed hyperlipidemia Mild recurrent major depression Annual physical exam Epididymal mass Lipoma of spermatic cord Left testicular pain Depression with anxiety Fibromyalgia GERD (gastroesophageal reflux disease) Asthma Surgical History H/O hemorrhoidectomy History of testicular surgery History of esophagogastroduodenoscopy (EGD) History of left inguinal hernia repair Family History Maternal Grandfather History of lung cancer Paternal Uncle History of prostate cancer Father Asthma HTN (hypertension) Hx of CABG Mother Depression Other CVD (cardiovascular disease) Social History Housing: Apartment Are you a primary healthcare prof to a significant other at home: No Do you presently have visiting nurse or other home services: Yes Alcohol intake: former Patient Tobacco Use Status: Never used Tobacco e-Cigarette/Vaping Use: Never Used Second Hand Smoke Exposure: No Advance Directives Date on File: 07/19/20 service: No Current occupational status: unemployed Cognitive needs: Yes Hearing needs: No Vision needs: No Review of Systems Const Denies fatigue, Denies fever(s), Denies night sweats, Denies poor appetite and Denies weight loss ENT Reports Normal hearing present, Denies dental pain, Denies dysphagia, Denies hearing loss, Denies mouth pain, Denies odynophagia, Denies throat swelling, Denies tongue swelling and Reports other (Dentition adequate) Card Reports no additional complaints Resp Reports no additional complaints GI Details: Denies abdominal pain, Denies melena, Denies bloating, Denies hematochezia, Denies constipation, Reports GI cramping, Denies dysphagia, Denies excessive flatus, Denies early satiety, Reports heartburn, Reports diarrhea, Denies nausea, Denies odynophagia, Denies vomiting and Denies hematemesis Skin/Breast Denies pruritus, Denies lesions, Denies rash and Denies jaundice Neuro Reports Normal hearing present and Denies Abnormal speech present Endo Denies fatigue Aller/Immun Denies throat swelling and Denies tongue swelling Physical Exam Vital Signs: Last Vital Signs Pulse 78 12/31/24 11:46 BP 123/65 12/31/24 11:46 BMI result Body Mass Index 32.1 Const General: cooperative, no acute distress, well developed and well groomed Nutritional Appearance: well nourished and obese Orientation/consciousness: oriented to person, oriented to place and oriented to time Limitations: No language barrier HEENT Head: Yes normocephalic and Yes atraumatic Eyes General: appearance normal, both eyes and all related structures Pupils: Equal, round and reactive pupils present Neck Neck: Yes normal visual inspection and Yes no lymphadenopathy Thyroid: Thyroid normal Resp Effort & Inspection: normal respiratory effort and able to speak in complete sentences Auscultation: clear to auscultation bilaterally Cardio Rate: regular rate Rhythm: regular rhythm Heart sounds: Normal, physiologic split S2 sound present Peripheral pulses: radial pulses present and posterior tibial pulses present GI Inspection: No distended, No Abdominal panniculus present and Yes obesity Palpation (GI): Soft to palpation, nontender, no guarding, not rigid and No hepatosplenomegaly present Percussion: Yes normal to percussion Auscultation: normal bowel sounds Rectal Exam - Male: Yes deferred Skin General skin exam: no rashes or lesions noted, turgor normal, skin not dry, no jaundice, No spider nevi and no striae Rashes: no rashes Nails: normal Neuro General: oriented to person, oriented to place and oriented to time Cranial nerves: Yes Equal, round and reactive pupils present and Yes Normal hearing present Speech: No Abnormal speech present Extrem General: Yes normal to inspection, No clubbing, No cyanosis and No edema Psych Appearance: grossly normal and well kempt Mental Status: mental status grossly normal Speech and movement: Normal speech and movement present Affect: normal affect Attitude: cooperative Thought process: Normal thought process present and not confabulating Thought content: Normal thought content present Insight: Limited insight present (Psych) Judgement: Limited judgement present (Psych) Assessment & Plan Assessment & Plan (1) GERD (gastroesophageal reflux disease): Code(s): K21.9 - Gastro-esophageal reflux disease without esophagitis Category: Medical Qualifiers: Esophagitis presence: esophagitis presence not specified Qualified Code(s): K21.9 - Gastro-esophageal reflux disease without esophagitis (2) Constipation: Code(s): K59.00 - Constipation, unspecified Category: Medical Plan Setswana #V Live He continues to take the imipramine, and since he has comorbid IBS I have no problem continuing this although it was originally rx'ed for roids surgery. He also continues on pantoprazole and bentyl. He will be due for 1st scope next year, discuss next OV. ROV 6 mos. Coding Level of Care Code Est Pt Level 3 (27711) Diagnoses Gastroesophageal reflux disease, unspecified whether esophagitis present K21.9 Esophagitis presence: esophagitis presence not specified Constipation K59.00
[2024-12-31 11:46] VITALS: BP 123/65; PULSE 78; BMI 32.1
--- NOTE | 2024-12-31 11:46 | MHC.OFFVIS ---
Vital Signs 12/31/24 11:46 Height 5 ft 3 in Weight 181 lb 3.52 oz BMI 32.1 BP 123/65 Blood Pressure Location Rt brachial Position Sitting Pulse 78 Intake Visit Reasons: 3 month follow up Intake Note: Guru presents to in office follow up of constipation. CC: Patient reports some constipation but he states is better now since he is avoiding fast foods and greasy foods. He also c/o heartburn and acid reflux sometimes. Radiology Supervisor Required: Yes Radiology Supervisor Language: Mohawk Accompanied by: Self / Same As Patient Allergies No Known Drug Allergies Allergy (Unknown, Verified 10/29/24 09:14) none seafood Allergy (Verified 10/29/24 09:14) Anaphylaxis PFSH Medical History Testicular pain Arthritis Back pain Sleep apnea Hemorrhoids that prolapse with straining, but retract spontaneously Dyslipidemia Kidney stone Back pain Disorder of kidney and ureter Right flank pain Right upper quadrant abdominal pain Left elbow pain Adult general medical exam CELESTE (generalized anxiety disorder) Mixed hyperlipidemia Mild recurrent major depression Annual physical exam Epididymal mass Lipoma of spermatic cord Left testicular pain Depression with anxiety Fibromyalgia GERD (gastroesophageal reflux disease) Asthma Surgical History H/O hemorrhoidectomy History of testicular surgery History of esophagogastroduodenoscopy (EGD) History of left inguinal hernia repair Family History Maternal Grandfather History of lung cancer Paternal Uncle History of prostate cancer Father Asthma HTN (hypertension) Hx of CABG Mother Depression Other CVD (cardiovascular disease) Social History Housing: Apartment Are you a primary skin care therapist to a significant other at home: No Do you presently have visiting nurse or other home services: Yes Alcohol intake: former Patient Tobacco Use Status: Never used Tobacco e-Cigarette/Vaping Use: Never Used Second Hand Smoke Exposure: No Advance Directives Date on File: 07/19/20 service: No Current occupational status: unemployed Cognitive needs: Yes Hearing needs: No Vision needs: No Physical Exam Vital Signs: BMI result Body Mass Index 32.1 Coding
--- OUTSIDE RECORDS SUMMARY | 2024-12-31 14:14 | XMS_ITS | Clinical Summary ---
Author Organization [facility] ity Address [address] [place] [address] Care Team Providers [employer] Hand Name Role Phone Unavailable Primary Care Provider Unavailabl e Social History Tobacco Use Types Packs/Day Years Used Date Smoking Tobacco: Never Assessed Sex and Gender Information Value Date Recorded Sex Assigned at Not on file Legal Sex Male 6:15 PM EST Gender Identity Not on file Sexual Orientation Not on file Plan of Treatment Health Maintenance Due Date Last Done Comments DTaP,Tdap,and Td Vaccines (1 - Tdap) 1999 Hepatitis B Vaccines (1 of 3 - 19+ 3-dose series) 1999 Cholesterol Screening (Lipid Panel) 10/30/2023 Depression Screening 10/30/2023 HIV Screening 10/30/2023 Hepatitis C Screening 10/30/2023 Social Influencers of Health Screening 10/30/2023 COVID-19 Vaccine (2023-2 5 season) 2024 Influenza Vaccine (#1) 2024 HIB Vaccines Aged Out No longer eligi ble based on patient's age to complete this topic HPV Vaccines Aged Out No longer eligi ble based on patient's age to complete this topic Hepatitis A Vaccines Aged Out No long er eligible based on patient's age to complete this topic IPV Vaccines Aged Out No longer eligi ble based on patient's age to complete this topic MMR Vaccines Aged Out No longer eligi ble based on patient's age to complete this topic Meningococcal ACWY Vaccine Aged Out N o longer eligible based on patient's age to complete this topic Meningococcal B Vacine Aged Out No lo nger eligible based on patient's age to complete this topic Pneumococcal Vaccine: Pediat rics (0 to 5 Years) and At-Risk Patients (6 to 64 Years) Aged Out No longer eligible b ased on patient's age to complete this topic RSV Immunization Patients Un leona 20 months Aged Out No longer eligible b ased on patient's age to complete this topic Varicella Vaccines Aged Out No longer eligible based on patient's age to complete this topic
== END 2024-12-31 14:45 | disposition home or self-care (01) ==
LOC: HO.HGI 11:40
PROVIDERS: PCP Internal Medicine; Visit Provider Nurse Practitioner
DX: K21.9 Gastro-esophageal reflux disease without esophagitis (principal); K59.00 Constipation, unspecified
CPT/HCPCS: 99213

== ENCOUNTER → 2024-12-31 11:40 | Outpatient (BNVA) | payer MEDICARE, MEDICAID, SELFPAY | PROVIDERS: PCP Internal Medicine; Visit Provider Nurse Practitioner | DX: K21.9 Gastro-esophageal reflux disease without esophagitis (principal); K59.00 Constipation, unspecified | CPT/HCPCS: 99212 ==